=== PATIENT | male | born 2000 | race Caucasian/White ===

== ENCOUNTER 2020-03-21 23:12 | Inpatient (IN) | payer SELFPAY ==
[~2020-03-21] VITALS: Ht 185.2 cm; Wt 111.1 kg
[2020-03-21] MEDS ORDERED: LACTATED RINGERS 1,000 ML IV ONE (23:20)
--- OUTSIDE RECORDS SUMMARY | 2020-03-21 23:23 | XMS REPORT ---
Author Author Jonathan WALKER eClinicalWorks Address Unknown Phone Unavailable Care Team Providers Care Premium Card Cancellation Clerk Name Role Phone KAN WALKER CP Unavailable Allergies, Adverse Reactions, Alerts Substance Reaction Event Type N.K.D.A. Info Not Available Non Drug Allergy Problems Problem Type Condition Code Onset Dates Condition Statu s Assessment Dental examination Z01.20 Active Medications Medication Code System Code Instructions Start Date End Date Status Dosage Singulair [facility] [address]-64 not defi regla Advair Diskus [facility] [address]-58 not defined ProAir HFA [facility] [id number] not def ined Procedures Procedure Coding System Code Date AMALGAM-TWO SURFACES PRIMARY/PERM CPT-4 D2150 Jul 27, 2015 AMALGAM-TWO SURFACES PRIMARY/PERM CPT-4 D2150 Jul 27, 2015 Results No Known Results Summary Purpose eClinicalWorks Submission
--- OUTSIDE RECORDS SUMMARY | 2020-03-21 23:23 | XMS REPORT ---
Author Author Jonathan STEELE Organization [facility] [place] Address [address] [place] [address] Care Team Providers Care Hydraulic Repairer Name Role Phone DAVIS STEELE Unavailable PROBLEMS Unknown Problems ALLERGIES No Known Allergies ENCOUNTERS Encounter Location Date Diagnosis [facility] [address] [id number] [address] [place] [phone] Aug, Sore throat J02.9 ; Acute no n-recurrent maxillary sinusitis J01.00 and Rash of hands R21 [facility] [id number] [place] [id number] Feb, Dental examination Z01.20 [facility] [place] [address] [facility] [id number] [address] [place] [phone] Dec, Dental examination Z01.20 [facility] [id number] [place] [id number] Jun, Encounter for dental examina tion Z01.20 [facility] [address] [id number] [address] [place] [id number] Feb, Dental examination Z01.20 [facility] [address] [id number] [place] [id number] Nov, Encounter for dental examina tion and cleaning without abnormal findings Z01.20 [facility] [address] [id number] [address] [place] [id number] Aug, Dental examination Z01.20 [facility] [address] [id number] [address] [place] [address] [id number] Jul, Dental examination Z01.20 [facility] [id number] [place] [id number] May, Dental examination V72.2 [facility] [address] [id number] [address] [place] [address] [id number] May, Dental examination V72.2 [facility] [address] [id number] [address] [place] [address] [id number] Apr, Dental examination V72.2 [facility] [address] [id number] [address] [place] [id number] Mar, Dental examination V72.2 [facility] [address] [id number] [address] [place] [address] [id number] January, Dental examination V72.2 [facility] [place] [address] [facility] [id number] [address] [place] [phone] Feb, [facility] [place] [address] [facility] [id number] [address] [place] [phone] Feb, IMMUNIZATIONS No Known Immunizations SOCIAL HISTORY Never Assessed REASON FOR VISIT sore throat, and productive cough that is greenish-brown tinged. been sick for 2 days. also reports redness on his hands. pt did state when questioned...that he washes his hands a lot at work. alomst liiks like dry skin. [email or web address] PLAN OF CARE Activity Details Follow Up if not improving with PCP or reg follow up Reason: VITAL SIGNS Height 72 in 2017-09-08 Weight 222.0 lbs 2017-09-08 Temperature 98.1 degrees Fahrenheit 2017-09-08 Heart Rate 80 bpm 2017-09-08 Respiratory Rate 20 2017-09-08 BMI 30.11 kg/m2 2017-09-08 Blood pressure systolic 124 mmHg 2017-09-08 Blood pressure diastolic 76 mmHg 2017-09-08 MEDICATIONS Medication Instructions Dosage Frequency Start Date End Date Duration S tatus Singulair Active PredniSONE 20 mg Orally Once a day 2 tablets 24h Aug, Aug, 05 days Active Advair Diskus Active Azithromycin 250 MG Orally Once a day 2 tablets on the fi rst day, then 1 tablet daily for 4 days 24h 5 day(s) Active ProAir HFA Active RESULTS Name Result Date Reference Range STREP A (IN HOUSE) 2017-09-08 STREP A negative Control + Lot # [id number] Exp date 08 23 2018 PROCEDURES Procedure Date Ordered Result Body Site STREP A ASSAY W/OPTIC Sep 08, 2017 INSTRUCTIONS MEDICATIONS ADMINISTERED No Known Medications MEDICAL (GENERAL) HISTORY Type Description Date Medical History Asthma Surgical History tonsils Hospitalization History see above surgery
--- OUTSIDE RECORDS SUMMARY | 2020-03-21 23:23 | XMS REPORT ---
Author Author Jonathan HOFFMAN Organization e[employer]Works Address Unknown Phone Unavailable Care Team Providers Care Snout Puller Name Role Phone PIPE HOFFMAN CP Unavailable Allergies No Known Allergies Problems Problem Type Condition ICD-9 Code Onset Dates Condition Statu s Assessment Dental examination V72.2 Active Medications No Known Medications Procedures Procedure Coding System Code Date AMALGAM-TWO SURFACES PRIMARY/PERM CPT-4 D2150 Jun 02, 2015 Billing Notes on claim CPT-4 EC109 Jun 02, 2015 LTD ORAL EVALUATION - PROBLEM FOCUS CPT-4 D0140 Jun 02, 2015 Results No Known Results Summary Purpose eClinicalWorks Submission
--- OUTSIDE RECORDS SUMMARY | 2020-03-21 23:23 | XMS REPORT ---
Author Author Jonathan GALO Organization e[employer] Address Unknown Phone Unavailable Care Team Providers Care Operator Cavity Pump Name Role Phone SHILA GALO CP Unavailable Allergies, Adverse Reactions, Alerts Substance Reaction Event Type N.K.D.A. Info Not Available Non Drug Allergy Problems Problem Type Condition Code Onset Dates Condition Statu s Problem Encounter for dental examination and tim aning without abnormal findings Z01.20 Active Assessment Encounter for dental examination Z01.20 Active Problem Encounter for dental examination Z01.20 Active Medications Medication Code System Code Instructions Start Date End Date Status Dosage Advair Diskus [facility] [id number] not defined Singulair [facility] [id number] not defi regla ProAir HFA [facility] [address]-56 not def ined Procedures Procedure Coding System Code Date TOPICAL FLUORIDE VARNISH CPT-4 D1206 Jul 19, 2016 PROPHYLAXIS - ADULT CPT-4 D1110 Jul 19, 2016 Vital Signs Date/Time: Jul 19, 2016 Blood Pressure Diastolic 65 mmHg Blood Pressure Systolic 111 mmHg Cardiac Monitoring Heart Rate 76 bpm Results No Known Results Summary Purpose eClinicalWorks Submission
--- OUTSIDE RECORDS SUMMARY | 2020-03-21 23:23 | XMS REPORT ---
Author Author Jonathan WALKER eClinicalWorks Address Unknown Phone Unavailable Care Team Providers Care Robotic Welding Operator Name Role Phone KAN WALKER CP Unavailable Allergies, Adverse Reactions, Alerts Substance Reaction Event Type N.K.D.A. Info Not Available Non Drug Allergy Problems Problem Type Condition Code Onset Dates Condition Statu s Assessment Dental examination Z01.20 Active Medications Medication Code System Code Instructions Start Date End Date Status Dosage Advair Diskus [facility] [address]-86 not defined ProAir HFA [facility] [address]-58 not def ined Singulair [facility] [address]-02 not defi regla Procedures Procedure Coding System Code Date CORE BUILDUP INCLUDING ANY PINS CPT-4 D2950 Jul 27, 2015 Vital Signs Date/Time: Jul 27, 2015 Blood Pressure Diastolic 69 mmHg Blood Pressure Systolic 113 mmHg Results No Known Results Summary Purpose eClinicalWorks Submission
--- OUTSIDE RECORDS SUMMARY | 2020-03-21 23:23 | XMS REPORT ---
Author Author Jonathan PERRY Organization [facility] Address [address] [place] [address] Care Team Providers Care Tractor Engine Mechanic Name Role Phone DAYO PERRY Unavailable PROBLEMS Unknown Problems ALLERGIES No Information ENCOUNTERS Encounter Location Date Diagnosis [facility] [address] [facility] [id number] [address] [place] [address] Aug, Sore throat J02.9 ; Acute no n-recurrent maxillary sinusitis J01.00 and Rash of hands R21 [facility] [address] [id number] Feb, Dental examination Z01.20 [facility] [address] [id number] [place] [address] Dec, Dental examination Z01.20 [facility] [address] [id number] Jun, Encounter for dental examination Z01.20 [facility] [address] [id number] Feb, Dental examination Z01.20 [facility] [address] [id number] Nov, Encounter for dental examination and tim aning without abnormal findings Z01.20 [facility] [address] [id number] Aug, Dental examination Z01.20 [facility] [address] [id number] Jul, Dental examination Z01.20 [facility] [address] [id number] May, Dental examination V72.2 [facility] [address] [id number] May, Dental examination V72.2 [facility] [address] [id number] [place] [phone] Apr, Dental examination V72.2 [facility] [address] [id number] [place] [id number] Mar, Dental examination V72.2 [facility] [address] [facility] [place] [id number] January, Dental examination V72.2 [facility] [address] [facility] [place] [address] Feb, [facility] [address] [facility] [place] [address] Feb, IMMUNIZATIONS No Known Immunizations SOCIAL HISTORY Never Assessed REASON FOR VISIT PLAN OF CARE VITAL SIGNS MEDICATIONS No Known Medications RESULTS No Results PROCEDURES No Known procedures INSTRUCTIONS MEDICATIONS ADMINISTERED No Known Medications MEDICAL (GENERAL) HISTORY Type Description Date Medical History Asthma Surgical History tonsils Hospitalization History see above surgery
--- OUTSIDE RECORDS SUMMARY | 2020-03-21 23:23 | XMS REPORT ---
Author Author Jonathan HOFFMAN Organization e[employer]Works Address Unknown Phone Unavailable Care Team Providers Care Dip Unit Operator Name Role Phone PIPE HOFFMAN CP Unavailable Allergies No Known Allergies Problems Problem Type Condition ICD-9 Code Onset Dates Condition Statu s Assessment Dental examination V72.2 Active Medications No Known Medications Procedures Procedure Coding System Code Date AMALGAM-TWO SURFACES PRIMARY/PERM CPT-4 D2150 May 26, 2015 AMALGAM-TWO SURFACES PRIMARY/PERM CPT-4 D2150 May 26, 2015 AMALGAM-TWO SURFACES PRIMARY/PERM CPT-4 D2150 May 26, 2015 Results No Known Results Summary Purpose eClinicalWorks Submission
--- OUTSIDE RECORDS SUMMARY | 2020-03-21 23:23 | XMS REPORT ---
Author Author Jonathan HOFFMAN Organization [employer] Address Unknown Phone Unavailable Care Team Providers Care Clerical Investigator Name Role Phone PIPE HOFFMAN CP Unavailable Allergies No Known Allergies Problems Problem Type Condition ICD-9 Code Onset Dates Condition Statu s Assessment Dental examination V72.2 Active Medications No Known Medications Procedures Procedure Coding System Code Date AMALGAM-TWO SURFACES PRIMARY/PERM CPT-4 D2150 May 18, 2015 AMALGAM-TWO SURFACES PRIMARY/PERM CPT-4 D2150 May 18, 2015 AMALGAM-TWO SURFACES PRIMARY/PERM CPT-4 D2150 May 18, 2015 Results No Known Results Summary Purpose eClinicalWorks Submission
--- OUTSIDE RECORDS SUMMARY | 2020-03-21 23:23 | XMS REPORT ---
Author Author Jonathan HOFFMAN Organization e[employer]Works Address Unknown Phone Unavailable Care Team Providers Care Property Management Bookkeeper Name Role Phone PIPE HOFFMAN CP Unavailable Allergies No Known Allergies Problems Problem Type Condition ICD-9 Code Onset Dates Condition Statu s Assessment Dental examination V72.2 Active Medications No Known Medications Procedures Procedure Coding System Code Date AMALGAM-FOUR/MORE SURF PRIM/PERM CPT-4 D2161 April 05, 2015 AMALGAM-3 SURFACES PRIMARY/PERM CPT-4 D2160 April 05, 2015 Results No Known Results Summary Purpose eClinicalWorks Submission
--- OUTSIDE RECORDS SUMMARY | 2020-03-21 23:23 | XMS REPORT | Continuity of Care Document ---
Author Organization Unknown Address Unknown Phone Unavailable Allergies There is no data. Medications There is no data. Problems There is no data. Procedures There is no data. Results There is no data. Encounters ACCT No. Visit Date/Time Discharge Status Pt. Type Provider Facility Loc./Unit Complaint [id number] 03/19/2020 18:20:00 ACT Outpatient KAILYN TELLO [facility] [id number] 03/21/2020 23:19:[address] Emergency SIRIA PONCE DO Via [facility]
[2020-03-21] MEDS ORDERED: TETANUS,DIPTH,PERTUSS P/F (BOOSTRIX) 0.5 ML VIAL IM ONE (23:30)
[2020-03-22] VITALS (30 sets, daily range): BP systolic 99–138; BP diastolic 63–105
[2020-03-22 00:30] LABS: BASOPHILS % (AUTO) 2 % (0-10); EOSINOPHILS % (AUTO) 1 % (0-10); LYMPHOCYTES # (AUTO) 0.8 X 10^3 (1.0-4.0); LYMPHOCYTES % (AUTO) 77 % (12-44); MEAN CORPUSCULAR HEMOGLOBIN 34 PG (25-34); MEAN CORPUSCULAR HGB CONC 36 G/DL (32-36); MEAN CORPUSCULAR VOLUME 96 FL (80-99); MONOCYTES # (AUTO) 0.1 X 10^3 (0.0-1.0); MONOCYTES % (AUTO) 13 % (0-12); NEUTROPHILS # (AUTO) 0.1 X 10^3 (1.8-7.8); NEUTROPHILS % (AUTO) 8 % (42-75); RED CELL DISTRIBUTION WIDTH 15.1 % (10.0-14.5)
[2020-03-22] MEDS ORDERED: LIDOCAINE/EPI 2% 1:100,00 (XYLOCAINE) 20 ML VIAL INJ ONE (00:30)
[2020-03-22 00:33] LABS: ALBUMIN 4.1 GM/DL (3.2-4.5); CHLORIDE 100 MMOL/L (98-107); POTASSIUM 3.2 MMOL/L (3.6-5.0); SODIUM 138 MMOL/L (135-145)
[2020-03-22 00:34] LABS: CALCIUM 8.7 MG/DL (8.5-10.1)
[2020-03-22 00:35] LABS: AMYLASE 44 U/L (25-125)
[2020-03-22 00:36] LABS: GLUCOSE 140 MG/DL (70-105); TOTAL PROTEIN 7.2 GM/DL (6.4-8.2)
[2020-03-22 00:37] LABS: BILIRUBIN,TOTAL 0.7 MG/DL (0.1-1.0); CARBON DIOXIDE 22 MMOL/L (21-32)
[2020-03-22 00:39] LABS: ALKALINE PHOSPHATASE 36 U/L (40-136); CREATININE SERUM 1.04 MG/DL (0.60-1.30); GFR ESTIMATED > 60
[2020-03-22 00:40] LABS: BUN/CREATININE RATIO 13
[2020-03-22 00:42] LABS: ALANINE AMINOTRANSFERASE 35 U/L (0-55); MAGNESIUM 2.4 MG/DL (1.6-2.4)
[2020-03-22 00:43] LABS: CREATINE KINASE 354 U/L (30-200); LIPASE 26 U/L (8-78)
[2020-03-22 00:51] LABS: CREATINE KINASE MB 0.5 NG/ML (<6.6)
[2020-03-22 01:04] LABS: TSH (THYROID ANALYZER) 0.85 UIU/ML (0.35-4.94)
--- NOTE | 2020-03-22 01:20 | NUR ---
C COLLAR REMOVED BY DR. PONCE AT THIS TIME.
[2020-03-22 01:24] LABS: HEMATOCRIT 10 % (40-54); HEMOGLOBIN 3.5 G/DL (13.3-17.7); PLATELET COUNT 12 10^3/uL (130-400)
[2020-03-22 01:25] LABS: FIBRIN DEGRADATION PRODUCTS > 20.00 UG/ML (0.00-0.49); INR 1.2 (0.8-1.4); PARTIAL THROMBOPLASTIN TIME 28 SEC (24-35)
--- NOTE | 2020-03-22 01:30 | NUR ---
9 BRAD A CROWN OF HEAD TO 4CM LAC BY DR. PONCE.
[2020-03-22] MEDS ORDERED: PIPERACILLIN/TAZOBACTAM (BULK) 4.5 GM in NS (IVPB) 100 ML IV ONE (02:00)
[2020-03-22] MEDS ORDERED: ACETAMINOPHEN 500 MG TAB (TYLENOL) PO ONE (02:00)
--- NOTE | 2020-03-22 02:05 | NUR ---
1L NS STARTED BY EMS COMPLETED AT THIS TIME.
[2020-03-22] MEDS ORDERED: PIPERACILLIN/TAZO 4.5 GM VIAL (ZOSYN) IV ONE (02:19)
[2020-03-22] MEDS ORDERED: NS (IVPB) 100 ML ONE (02:20)
[2020-03-22] MEDS ORDERED: NS IV 1000 ML 1,000 ML IV SCH (02:23)
--- NOTE | 2020-03-22 02:23 | ED General ---
General Chief Complaint: Trauma-Non Activation Stated Complaint: FALL Source of Information: Patient, EMS History of Present Illness Date Seen by Provider: Mar 21, 2020 Time Seen by Provider: 23:13 Initial Comments PT ARRIVES VIA EMS FROM HOME--NO IMMOBILIZATION C-COLLAR IMMEDIATELY PLACED ON PT'S ARRIVAL TO ER PT STATES HE HAD GONE DOWNSTAIRS, AND WAS STARTING TO GO BACK UP, WHEN OTHER PEOPLE WERE COMING DOWN THE STAIRS, HE DROPPED A BOTTLE OF WATER AND HE BENT OVER TO PICK IT UP AND A DOOR HIT HIM IN THE HEAD ( DOES NOT KNOW WHERE IT HIT HIM) THEN STATES HE FLEW BACKWARDS AND HIT HIS HEAD ON A WALL AND WENT UNCONSCIOUS, FOR UNKNOWN LENGTH OF TIME. THIS WAS REPORTEDLY WITNESSED BY OTHERS. PT RECALLS EVENTS LEADING UP TO, BUT CANNOT RECALL THE ACTUAL EVENT OR FOR SOME TIME AFTER THAT. DOES RECALL THE AMBULANCE RIDE HERE. HAS LACERATION TO BACK OF HEAD NO DIZZINESS AT THIS TIME NO VISION CHANGES NO PARESTHESIAS OR MOTOR DEFICITS NO NECK OR BACK PAIN NO EXTREMITY PAIN OR INJURY PT STATES HE HAS BEEN DIZZY AND TIRED LATELY, ESPECIALLY WITH "PHYSICAL EXERTION" --GETTING UP TO WALK ACROSS THE ROOM, CAUSES HIM TO FEEL VERY TIRED AND DIZZY AND VERY SHORT OF BREATH PT HAS HAD MILD COUGH, AND NASAL DRAINAGE. NO CHEST PAIN PT HAD GI ILLNESS 2 WEEKS AGO, WITH NAUSEA/VOMITING AND DIARRHEA FOR 2-3 DAYS. THOSE SYMPTOMS RESOLVED DID NOT HAVE FEVER WITH THAT NO HEMATEMESIS OR BLACK/BLOODY/TARRY STOOLS NO ABDOMINAL PAIN NO CHANGE IN COLOR OF URINE OR PROBLEMS URINATING STATES HE WAS TESTED FOR COVID-19 ON 03/07/20 AND WAS NEGATIVE. DONE AT [facility]. PT HAS BEEN ON AMOXIL FOR "GUM INFECTION" FOR THE LAST WEEK OR TWO STATES THAT IS NOT IMPROVING. NO KNOWN SICK CONTACTS OR KNOWN EXPOSURE TO COVID-19 PT AND HIS ROOM MATE BOTH WORK AT [employer], HOWEVER. HIS ROOM MATE HAS NOT BEEN ILL PT IS NOTED TO HAVE TEMP OF OVER 101 ON ARRIVAL--PT WAS UNAWARE THAT HE HAD FEVER. PCP: [facility] Allergies and Home Medications Allergies Coded Allergies: No Allergy Information Available (Unverified , 03/21/20) Patient Home Medication List Home Medication List Reviewed: Yes Review of Systems Review of Systems Constitutional: see HPI; No diaphoresis; dizziness, fever, malaise, weakness EENTM: see HPI, mouth pain, nose congestion, other (GUM INFECTION) Respiratory: see HPI, cough, dyspnea on exertion, short of breath Cardiovascular: No chest pain, No palpitations; other (NEAR-SYNCOPE ? ) Gastrointestinal: see HPI (RECENT GI ILLNESS, BUT NO SYMPTOMS NOW. ) Genitourinary: no symptoms reported Musculoskeletal: no symptoms reported; No back pain, No neck pain Skin: no symptoms reported Psychiatric/Neurological: No Symptoms Reported; Denies Headache, Denies Numbness, Denies Paresthesia, Denies Seizure, Denies Tingling, Denies Weakness Hematologic/Lymphatic: No Symptoms Reported; Denies Anemia, Denies Easy Bleeding, Denies Easy Bruising, Denies Swollen Glands Immunological/Allergic: no symptoms reported Past [place]-Jhcxiz-Lnwvwq Hx Past Med/Social Hx: Reviewed and Corrections made Patient Social History Alcohol Use: Occasionally Uses Recreational Drug Use: No Smoking Status: Current Everyday Smoker Type Used: Cigarettes Immunizations Up To Date Tetanus Booster (TDap): Unknown Seasonal Allergies Seasonal Allergies: Yes Past Medical History Surgeries: Yes Tonsillectomy Respiratory: Yes Asthma Cardiac: No Neurological: No Reproductive Disorders: No Genitourinary: No Gastrointestinal: No Musculoskeletal: No Endocrine: No HEENT: Yes (S/P TONSILLECTOMY) Tonsilitis Cancer: No Psychosocial: No Integumentary: No Blood Disorders: No Family Medical History No Pertinent Family Hx Physical Exam Vital Signs Vital Signs - First Documented 03/22/20 03/22/20 02:28 02:31 Temp 39.2 Pulse 121 B/P (MAP) 138/105 Pulse Ox 99 O2 Delivery Room Air Capillary Refill : Height, Weight, BMI Height: '" Weight: lbs. oz. kg; BMI Method: General Appearance: No Apparent Distress, WD/WN Eyes: Bilateral Eye PERRL, Bilateral Eye EOMI, Bilateral Eye Conjunctivae Pale HEENT: PERRL/EOMI, TMs Normal, Moist Mucous Membranes, Pale Conjunctivae (L), Pale Conjunctivae (R); No Pharyngeal Erythema, No Photophobia, No Scleral Icterus (L), No Scleral Icterus (R); Other (PATCHY AREAS OF GINGIVAL INFLAMMATION AND WHITE EXUDATE TO GUMS AND ROOF OF MOUTH. NO DISCRETE ULCERS. NO BLEEDING FROM GUMS, BUT GUMS ARE PALE) Neck: Non Tender Respiratory: Chest Non Tender, Normal Breath Sounds, No Accessory Muscle Use, No Respiratory Distress Cardiovascular: No Edema, No JVD, No Murmur, Normal Peripheral Pulses, Tachycardia Gastrointestinal: Normal Bowel Sounds, No Organomegaly, No Pulsatile Mass, Non Tender, Soft Back: Normal Inspection, No CVA Tenderness, No Vertebral Tenderness Extremity: Normal Inspection, Normal Range of Motion, Non Tender, No Calf Tenderness, No Pedal Edema, Slow Capillary Refill Neurologic/Psychiatric: Alert, Oriented x3, No Motor/Sensory Deficits, Normal Mood/Affect, 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 ) Possible Source: Unknown Lactate Level 03/21/20 23:27: Lactic Acid Level 1.86 Time of Focused Exam: 01:20 Respiratory: Normal Breath Sounds, No Accessory Muscle Use, No Respiratory Distress Cardiovascular: No Edema, No JVD, No Murmur, Normal Peripheral Pulses, Tachycardia Capillary Refill: Greater Than 3 Seconds Peripheral Pulses: 2+ Dorsalis Pedis (R), 2+ Left Dors-Pedis (L), 2+ Radial Pulses (R), 2+ Radial Pulses (L) Skin: warm/dry, pallor Lactic Acid Level Within 3hrs of presentation: Admin fluids, Admin ABX, Blood cultures prior to ABX's, Focus exam, Lactate level Procedures/Interventions Wound Location: Scalp (CROWN) Wound Length (cm): 4 Wound's Depth, Shape: linear, sub Q Wound Explored: clean Anesthesia: Lidocaine w/ Epi (2%) Staple Repair: Stapler 35W (#9 BRAD PLACED) Progress/Results/Core Measures Suspected Sepsis SIRS Temperature: Pulse: Respiratory Rate: Laboratory Tests 03/21/20 23:27: White Blood Count 1.0*L Blood Pressure / Mean: 03/21/20 23:27: Lactic Acid Level 1.86 Laboratory Tests 03/21/20 23:27: Creatinine 1.04, INR Comment 1.2, Platelet Count 12*L, Total Bilirubin 0.7 Results/Orders Lab Results Laboratory Tests Test 03/21/20 23:27 03/21/20 23:50 03/22/20 02:37 Range/Units White Blood Count 1.0 *L 4.3-11.0 10^3/uL Red Blood Count 1.02 L 4.35-5.85 10^6/uL Hemoglobin 3.5 *L 13.3-17.7 G/DL Hematocrit 10 *L 40-54 % Mean Corpuscular Volume 96 80-99 FL Mean Corpuscular Hemoglobin 34 25-34 PG Mean Corpuscular Hemoglobin Concent 36 32-36 G/DL Red Cell Distribution Width 15.1 H 10.0-14.5 % Platelet Count 12 *L 130-400 10^3/uL Mean Platelet Volume 7.4-10.4 FL Neutrophils (%) (Auto) 8 L 42-75 % Lymphocytes (%) (Auto) 77 H 12-44 % Monocytes (%) (Auto) 13 H 0-12 % Eosinophils (%) (Auto) 1 0-10 % Basophils (%) (Auto) 2 0-10 % Neutrophils # (Auto) 0.1 L 1.8-7.8 X 10^3 Lymphocytes # (Auto) 0.8 L 1.0-4.0 X 10^3 Monocytes # (Auto) 0.1 0.0-1.0 X 10^3 Eosinophils # (Auto) 0.0 0.0-0.3 10^3/uL Basophils # (Auto) 0.0 0.0-0.1 10^3/uL Neutrophils % (Manual) 11 % Lymphocytes % (Manual) 67 % Monocytes % (Manual) 7 % Metamyelocytes % 3 % Band Neutrophils 1 % Nucleated Red Blood Cells 4 Atypical Lymphocytes 11 % Anisocytosis SLIGHT Microcytosis MODERATE Erythrocyte Sedimentation Rate > 140 H 0-15 MM/HR Prothrombin Time 16.0 H 12.2-14.7 SEC INR Comment 1.2 0.8-1.4 Activated Partial Thromboplast Time 28 24-35 SEC D-Dimer > 20.00 *H 0.00-0.49 UG/ML Sodium Level 138 135-145 MMOL/L Potassium Level 3.2 L 3.6-5.0 MMOL/L Chloride Level 100 98-107 MMOL/L Carbon Dioxide Level 22 21-32 MMOL/L Anion Gap 16 H 5-14 MMOL/L Blood Urea Nitrogen 14 7-18 MG/DL Creatinine 1.04 0.60-1.30 MG/DL Estimat Glomerular Filtration Rate > 60 BUN/Creatinine Ratio 13 Glucose Level 140 H 70-105 MG/DL Glucometer 159 H 70-110 MG/DL Lactic Acid Level 1.86 0.50-2.00 MMOL/L Calcium Level 8.7 8.5-10.1 MG/DL Corrected Calcium 8.6 8.5-10.1 MG/DL Magnesium Level 2.4 1.6-2.4 MG/DL Total Bilirubin 0.7 0.1-1.0 MG/DL Aspartate Amino Transf (AST/SGOT) 30 5-34 U/L Alanine Aminotransferase (ALT/SGPT) 35 0-55 U/L Alkaline Phosphatase 36 L 40-136 U/L Lactate Dehydrogenase 290 H 125-220 U/L Total Creatine Kinase 354 H 30-200 U/L Creatine Kinase MB 0.5 <6.6 NG/ML Myoglobin 117.1 H 10.0-92.0 NG/ML Troponin I < 0.028 <0.028 NG/ML C-Reactive Protein High Sensitivity 18.10 H 0.00-0.50 MG/DL B-Type Natriuretic Peptide 85.4 <100.0 PG/ML Total Protein 7.2 6.4-8.2 GM/DL Albumin 4.1 3.2-4.5 GM/DL Amylase Level 44 25-125 U/L Lipase 26 8-78 U/L Procalcitonin 0.22 H <0.10 NG/ML TSH [place] Testing 0.85 0.35-4.94 UIU/ML Serum Alcohol < 10 <10 MG/DL Urine Color DARK YELLOW Urine Clarity SL CLOUDY Urine pH 6.0 5-9 Urine Specific [place] 1.020 1.016-1.022 Urine Protein 2+ H NEGATIVE Urine Glucose (UA) NEGATIVE NEGATIVE Urine Ketones TRACE H NEGATIVE Urine Nitrite NEGATIVE NEGATIVE Urine Bilirubin NEGATIVE NEGATIVE Urine Urobilinogen 1.0 < = 1.0 MG/DL Urine Leukocyte Esterase NEGATIVE NEGATIVE Urine RBC (Auto) 2+ H NEGATIVE Urine RBC RARE /HPF Urine WBC NONE /HPF Urine Squamous Epithelial Cells 2-5 /HPF Urine Crystals NONE /LPF Urine Bacteria NEGATIVE /HPF Urine Casts PRESENT /LPF Urine Hyaline Casts 2-5 H /LPF Urine Mucus SMALL H /LPF Urine Culture Indicated NO Urine Opiates Screen NEGATIVE NEGATIVE Urine Oxycodone Screen NEGATIVE NEGATIVE Urine Methadone Screen NEGATIVE NEGATIVE Urine Propoxyphene Screen NEGATIVE NEGATIVE Urine Barbiturates Screen NEGATIVE NEGATIVE Ur Tricyclic Antidepressants Screen NEGATIVE NEGATIVE Urine Phencyclidine Screen NEGATIVE NEGATIVE Urine Amphetamines Screen NEGATIVE NEGATIVE Urine Methamphetamines Screen NEGATIVE NEGATIVE Urine Benzodiazepines Screen NEGATIVE NEGATIVE Urine Cocaine Screen NEGATIVE NEGATIVE Urine Cannabinoids Screen NEGATIVE NEGATIVE My Orders Orders - SIRIA PONCE DO Accucheck Stat ONCE (03/21/20 23:20) Ed Iv/Invasive Line Start (03/21/20 23:20) Ekg Tracing (03/21/20 23:20) Monitor-Rhythm Ecg Trace Only (03/21/20 23:20) Alcohol (03/21/20 23:20) BNP (03/21/20 23:20) Cbc With Automated Diff (03/21/20 23:20) Comprehensive Metabolic Panel (03/21/20 23:20) Creatine Kinase (03/21/20 23:20) Creatine Kinase Mb (03/21/20 23:20) Drug Screen Stat (Urine) (03/21/20 23:20) Magnesium (03/21/20 23:20) Protime With Inr (03/21/20 23:20) Partial Thromboplastin Time (03/21/20 23:20) Thyroid Analyzer (03/21/20 23:20) Ua Culture If Indicated (03/21/20 23:20) Myoglobin Serum (03/21/20 23:20) Troponin I (03/21/20 23:20) Ed Iv/Invasive Line Start (03/21/20 23:20) Ed Iv/Invasive Line Start (03/21/20 23:20) Lactated Ringers (Lr 1000 Ml Iv Solution (03/21/20 23:20) Dipht,Pertuss(Acell),Tet Adult (Boostrix (03/21/20 23:30) Amylase (03/21/20 23:23) Hs C Reactive Protein (03/21/20 23:23) Fibrin Degradation Products (03/21/20 23:23) Lactic Acid Analyzer (03/21/20 23:23) Lipase (03/21/20 23:23) Blood Culture (03/21/20 23:23) Procalcitonin (Pct) (03/21/20 23:23) Erythrocyte Sedimentation Rate (03/21/20 23:23) LDH (03/21/20 23:23) Coronavirus Sars-Cov-2 So 2019 (03/21/20 23:23) Ed Iv/Invasive Line Start (03/21/20 23:23) Ct Head/Face/Cervical Wo (03/22/20 00:01) Chest 1 View, Ap/Pa Only (03/22/20 00:01) Lidocaine/Epi 2% 1:100,000 (Xylocaine/Ep (03/22/20 00:30) Manual Differential (03/21/20 23:27) Initiate Massive Transfusion P (03/22/20 01:27) Type And Screen (03/22/20 01:27) Red Cells Leukocytes Reduced (03/22/20 01:27) Fresh Frozen Plasma (03/22/20 01:08) Platelet Pheresis Lr (03/22/20 01:08) Piperacillin/Tazobactam (Bulk) (Zosyn In (03/22/20 02:00) Vancomycin Injection (Vancomycin Injecti (03/22/20 02:00) Acetaminophen Tablet (Tylenol Tablet) (03/22/20 02:00) Piperacillin Sodium/Tazobactam (Zosyn Vi (03/22/20 02:19) Ns (Ivpb) (Sodium Chloride 0.9% Ivpb Bag (03/22/20 02:20) Ed Iv/Invasive Line Start (03/22/20 02:23) Ns Iv 1000 Ml (Sodium Chloride 0.9%) (03/22/20 02:23) Medications Given in ED Current Medications Medications Dose Ordered Sig/Yoseph Route Start Time Stop Time Status Last Admin Dose Admin Acetaminophen 1,000 mg ONCE ONCE PO 03/22/20 02:00 03/22/20 02:01 DC 03/22/20 02:28 1,000 MG Diphtheria/ Tetanus/Acell Pertussis 0.5 ml ONCE ONCE IM 03/21/20 23:30 03/21/20 23:31 DC 03/21/20 23:46 0.5 ML Lactated Ringer's 1,000 ml @ 0 mls/hr Q0M ONCE IV 03/21/20 23:20 03/21/20 23:23 DC 03/21/20 23:43 999 MLS/HR Lidocaine/ Epinephrine 20 ml ONCE ONCE INJ 03/22/20 00:30 03/22/20 00:31 DC 03/22/20 03:10 20 ML Piperacillin Sod/ Tazobactam Sod 4.5 gm/Sodium Chloride 120 ml @ 240 mls/hr ONCE ONCE IV 03/22/20 02:00 03/22/20 02:29 DC 03/22/20 02:48 240 MLS/HR Vital Signs/I&O 03/22/20 03/22/20 03/22/20 03/22/20 02:28 02:31 02:49 03:23 Temp 39.2 39.2 39.2 38.8 Pulse 121 117 114 B/P (MAP) 138/105 127/64 130/70 Pulse Ox 99 98 99 O2 Delivery Room Air Room Air Room Air 03/22/20 03:43 Temp 38.8 Pulse 112 B/P (MAP) 124/73 Pulse Ox 99 03/22/20 00:00 Intake Total 100 ml Balance 100 ml Capillary Refill : Progress Note : Progress Note PT IMMEDIATELY PLACED ON CERVICAL COLLAR ON ARRIVAL UPON OBTAINING VITALS, AND HISTORY, ALL STAFF IMMEDIATELY DONNED PPE AND IT WAS WORN ALL ALL TIMES FOR REMAINDER OF ER STAY COVID TESTING PERFORMED. CERVICAL COLLAR REMOVED AT 0120, AFTER RECEIVING CT REPORT OF HEAD AND CERVICAL SPINE. PT GIVEN IV FLUIDS, AND TYLENOL FOR FEVER ON RECEIVING LAB RESULTS ( REPEAT LAB DRAWN FROM DIFFERENT SITE, FOR CONFIRMATION OF CBC RESULTS) MASS TRANSFUSION PROTOCOL INITIATED, GIVING BLOOD, PLATELETS AND FFP ADDITIONALLY, PT WAS GIVEN ZOSYN AND VANCOMYCIN FOR FEVER WITH NEUTROPENIA PT REMAINED TACHYCARDIC IN 120'S-130'S, BUT BLOOD PRESSURE REMAINED NORMAL O2 SATS REMAINED NORMAL, AND NO COMPLAINTS OF SHORTNESS OF BREATH AND NO COUGH NOTED DURING ER STAY GIVEN TYLENOL FOR FEVER. PT DENIES ANY PRIOR MEDICAL PROBLEMS OTHER THAN OCCASIONAL ASTHMA HAS NEVER BEEN ANEMIC OR HAD ANY BLOOD DISORDERS NO FAMILY HISTORY OF ANEMIA OR BLOOD DISORDERS OR CANCER IN FIRST OR SECOND DEGREE RELATIVES ( GREAT GRANDMOTHER POSSIBLY HAD BREAST CANCER ) ECG Initial ECG Impression Date: Mar 21, 2020 Initial ECG Impression Time: 23:43 Initial ECG Rate: 120 Initial ECG Rhythm: S.Tach Initial ECG Comparisson: No Previous ECG Available Diagnostic Imaging Comments CXR--NO ACUTE PROCESS, PENDING RADIOLOGIST REVIEW CT HEAD/MAXILLOFACIALS/CERVICAL SPINE--SCALP SWELLING ABOUT THE VERTEX, OTHERWISE NO ACUTE PROCESS, PER [facility] VIA FAX AT 0112 Reviewed: Reviewed by Pa Departure Communication (Admissions) 0201--SPOKE WITH DR. JANG, HOSPITALIST PROGRAM DIRECTOR FOR [facility]. ACCEPTS PT FOR ADMIT. WILL CONSULT SURGEON ( DUE TO TRAUMA) AND HEMATOLOGY/ONCOLOGY IN AM. Impression Primary Impression: COVID P.U.I. Additional Impressions: Closed head injury with brief loss of consciousness Scalp laceration SEVERE PANCYTOPENIA Neutropenia with fever Sepsis Disposition: ADMITTED INPATIENT Condition: Stable Admissions Decision to Admit Reason: Admit from ER (General) Decision to Admit/Date: Mar 22, 2020 Time/Decision to Admit Time: 02:00 Departure-Patient Inst. Referrals: NO,LOCAL PHYSICIAN (PCP/Family) Primary Care Physician SIRIA PONCE DO Mar 22, 2020 02:23
[2020-03-22 02:31] LABS: ERYTHROCYTE SEDIMENTATION RATE > 140 MM/HR (0-15)
[2020-03-22 02:44] LABS: BILIRUBIN,URINE NEGATIVE (NEGATIVE); CLARITY,URINE SL CLOUDY; COLOR,URINE DARK YELLOW; GLUCOSE, URINE (UA) NEGATIVE (NEGATIVE); KETONES,URINE TRACE (NEGATIVE); LEUKOCYTE ESTERASE ,URINE NEGATIVE (NEGATIVE); NITRITE,URINE NEGATIVE (NEGATIVE); PROTEIN,URINE 2+ (NEGATIVE)
[2020-03-22 02:54] LABS: BACTERIA,URINE NEGATIVE /HPF; RBC,URINE RARE /HPF
[2020-03-22] MEDS: VANCOMYCIN INJECTION 1,000 MG in NS (IVPB) 250 ML IV SCH ×2 (03:00→03:10)
[2020-03-22 03:11] LABS: AMPHETAMINE SCREEN, URINE NEGATIVE (NEGATIVE); BARBITURATE SCREEN URINE NEGATIVE (NEGATIVE); BENZODIAZEPINES SCREEN URINE NEGATIVE (NEGATIVE); CANNABINOID SCREEN, URINE NEGATIVE (NEGATIVE); COCAINE SCREEN URINE NEGATIVE (NEGATIVE); METHADONE STAT NEGATIVE (NEGATIVE); METHAMPHETAMINE SCREEN URINE S NEGATIVE (NEGATIVE); OPIATE SCREEN URINE NEGATIVE (NEGATIVE); OXYCODONE STAT NEGATIVE (NEGATIVE); PROPOXYPHENE STAT NEGATIVE (NEGATIVE); TRICYCLIC ANTIDEPRESSANTS SCRE NEGATIVE (NEGATIVE)
[2020-03-22 03:18] LABS: BAND NEUTROPHILS 1 %; LYMPHOCYTES % (MANUAL) 67 %; MONOCYTES % (MANUAL) 7 %; NEUTROPHILS % (MANUAL) 11 %
--- OUTSIDE RECORDS SUMMARY | 2020-03-22 03:18 | XMS REPORT | Continuity of Care Document ---
Author Organization Unknown Address Unknown Phone Unavailable Allergies There is no data. Medications There is no data. Problems There is no data. Procedures There is no data. Results There is no data. Encounters ACCT No. Visit Date/Time Discharge Status Pt. Type Provider Facility Loc./Unit Complaint [id number] 03/19/2020 18:20:00 [facility] [id number] 03/22/2020 02:00:[address] Inpatient SUHAIL KRISHNAN, TISHA Flores [facility] ICU COVID PUI, SEVERE PANCYTOPEN IA,HEAD INJ, SEPSIS
[2020-03-22 03:19] LABS: ANISOCYTOSIS SLIGHT; ATYPICAL LYMPHOCYTES 11 %; METAMYELOCYTES % 3 %; MICROCYTOSIS MODERATE; NUCLEATED RED BLOOD CELLS 4
--- NOTE | 2020-03-22 04:43 | NUR ---
RACHEL TAPIA admitted to room CU3-1, with an admitting diagnosis of COVID PUI, SEVERE PANCYTOPENIA, FEVER WITH NEUTROPENIA, SEPSIS, on 03/22/20 from ED via WHEELCHAIR, accompanied by HOSPITAL STAFF. RACHEL TAPIA introduced to surroundings, call light, bed controls, phone, TV, temperature control, lights, meal times, smoking policy, visitor policy, side rail policy, bathrooms and showers. Patient Rights given to patient in the handbook.RACHEL TAPIA verbalizes understanding that [facility] is not responsible for the loss or damage to any personal effects or valuables that are kept in the patients posession during their hospitalization. RACHEL TAPIA verbalizes understanding of Interdisciplinary Patient Education. Patient and/or family were informed about the Rapid Response Team and its purpose.
[2020-03-22] MEDS: NS IV 1000 ML 1,000 ML IV SCH ×3 (05:15→21:12)
[2020-03-22] MEDS ORDERED: VANCOMYCIN 1000 MG/VIAL ONE (05:35)
[2020-03-22] MEDS ORDERED: NS (IVPB) 250 ML ONE (05:35)
--- NOTE | 2020-03-22 05:45 | NUR ---
CLARIFIED WITH POLINA WHITE THAT SHE HAD ADMINISTERED 1G VANCO. IN 250ML NS. THIS RN THEN ADMINISTERED 1G VANCO IN 250ML NS FOR A TOTAL OF 2G VANCO. 0600-DISCUSSED VANCO ORDER WITH DR. TANNER AND INFORMED HIM THAT PATIENT WAS IN THE PROCESS OF RECEIVING HIS SECOND GRAM OF VANCO. RECEIVED ORDER TO HAVE ENRICO WITH PHARMACY REVIEW VANCO DOSE BEFORE ADDITIONAL VANCO IS ADMINISTERED.
--- NOTE | 2020-03-22 05:45 | NUR ---
CLARIFIED WITH ALAINA,
[2020-03-22] MEDS ORDERED: VANCOMYCIN 1500 MG/NS 500 ML IVPB IV SCH ×2 (06:00)
[2020-03-22] MEDS ORDERED: ONDANSETRON 4 MG/2 ML (SDV) Z0FRAN IV PRN (06:00)
--- NOTE | 2020-03-22 06:07 | Pulmonary Consultation ---
History of Present Illness History of Present Illness Date Seen by Provider: Mar 22, 2020 Time Seen by Provider: 06:02 Date of Admission Allergies and Home Medications Allergies Coded Allergies: No Allergy Information Available (Unverified , 03/21/20) Past Xaxpqsm-Qokzpc-Uxkhgw Hx Past Med/Social Hx: Reviewed and Corrections made Patient Social History Alcohol Use: Occasionally Uses Recreational Drug Use: No Smoking Status: Current Everyday Smoker Type Used: Cigarettes Immunizations Up To Date Tetanus Booster (TDap): Unknown Seasonal Allergies Seasonal Allergies: Yes Past Medical History Surgeries: Yes Tonsillectomy Respiratory: Yes Asthma Cardiac: No Neurological: No Reproductive Disorders: No Genitourinary: No Gastrointestinal: No Musculoskeletal: No Endocrine: No HEENT: Yes (S/P TONSILLECTOMY) Tonsilitis Cancer: No Psychosocial: No Integumentary: No Blood Disorders: No Family Medical History FH: anemia 19 MOTHER G8 SISTER grandmother FH: diverticulitis grandmother No Pertinent Family Hx Review of Systems Time Seen by Provider: 06:11 Sepsis Event Evaluation Height, Weight, BMI Height: '" Weight: lbs. oz. kg; 32.07 BMI Method: Exam Exam Vital Signs Date Time Temp Pulse Resp B/P (MAP) Pulse Ox O2 Delivery O2 Flow Rate FiO2 03/22/20 05:29 37.2 93 20 118/76 97 Room Air 03/22/20 05:29 91 17 118/76 (90) 98 Room Air 03/22/20 05:14 37.2 98 20 112/81 98 Room Air 03/22/20 04:47 98 26 112/81 (91) 98 Room Air 03/22/20 04:42 110 03/22/20 03:43 38.8 112 124/73 99 03/22/20 03:23 38.8 114 130/70 99 Room Air 03/22/20 02:49 39.2 117 127/64 98 Room Air 03/22/20 02:31 39.2 121 138/105 99 Room Air 03/22/20 02:28 39.2 I & O 03/22/20 07:00 Intake Total 1720 ml Balance 1720 ml Height & Weight Height: '" Weight: lbs. oz. kg; 32.07 BMI Method: General Appearance: No Apparent Distress, WD/WN HEENT: PERRL/EOMI, TMs Normal, Moist Mucous Membranes, Pale Conjunctivae (L), Pale Conjunctivae (R); No Pharyngeal Erythema, No Photophobia, No Scleral Icterus (L), No Scleral Icterus (R); Other (PATCHY AREAS OF GINGIVAL INFLAMMATION AND WHITE EXUDATE TO GUMS AND ROOF OF MOUTH. NO DISCRETE ULCERS. NO BLEEDING FROM GUMS, BUT GUMS ARE PALE) Neck: Non Tender Respiratory: Normal Breath Sounds, No Accessory Muscle Use, No Respiratory Distress Cardiovascular: No Edema, No JVD, No Murmur, Normal Peripheral Pulses, Tachycardia Capillary Refill: Greater Than 3 Seconds Peripheral Pulses: 2+ Dorsalis Pedis (R), 2+ Left Dors-Pedis (L), 2+ Radial Pulses (R), 2+ Radial Pulses (L) Extremity: Normal Inspection, Normal Range of Motion, Non Tender, No Calf Tenderness, No Pedal Edema, Slow Capillary Refill Neurologic/Psychiatric: Alert, Oriented x3, No Motor/Sensory Deficits, Normal Mood/Affect, staffing assistant II-XII Norm as Tested Skin: Warm/Dry, Pallor, Other (4 CM LACERATION TO CROWN OF HEAD) Results Lab Laboratory Tests 03/21/20 23:27 Assessment/Plan Assessment/Plan s/p Syncope Sepsis with neutropenia -Ferrara culture -COVID pending -Continue Vanco and Zosyn for now -Check urine strep and legionella ag Severe Anemia -s/p 4 PRBC and 3 FFP 1 6pk platelets -monitor Pancytopenia with neutropenia -Consult oncology --Repeat labs, check HIV, RVP, EBV Hypokalemia -replace DEBORAH TANNER DO Mar 22, 2020 06:07
--- NOTE | 2020-03-22 06:45 | Diagnostic Imaging Report ---
PROCEDURE: CT head, face, and cervical spine without contrast. TECHNIQUE: Multiple contiguous axial images were obtained through the head, neck, and facial bones without the use of intravenous contrast. Sagittal and coronal reformations through the cervical spine and facial bones were also performed. Auto Exposure Controls were utilized during the CT exam to meet ALARA standards for radiation dose reduction. INDICATION: Fall. Head laceration. Neck pain. COMPARISON: None. FINDINGS: CT head: The ventricles and cortical sulci are age-appropriate. There is no midline shift or mass-effect. No acute intracranial hemorrhage is seen. There is no CT evidence of acute territorial ischemia. No focal masses or collections are present. The calvarium is intact. Scalp laceration is seen overlying the posterior midline near the vertex. CT face: No acute facial fractures are visualized. The mandible, zygomatic arches, and pterygoid plates are intact. The bilateral TMJ demonstrate normal articulation. No nasal bone fractures. The bony nasal septum is slightly deviated to the right without fracture. Mild mucosal thickening is seen in the bilateral maxillary sinuses. The mastoid air cells are well pneumatized. The globes and orbits are symmetric and unremarkable. No evidence of orbital rim fracture. CT cervical spine: No acute fracture or dislocation is seen in the cervical spine. No focal osseous lesions. Vertebral body heights are well-maintained. The craniocervical junction is well-maintained. Soft tissues of the neck are unremarkable. The included lung apices are clear. IMPRESSION: 1. No hemorrhage or focal intra-axial mass. No CT evidence of large acute territorial ischemia. 2. No acute fracture or dislocation in the cervical spine. 3. No acute facial fractures. Agree with overnight report. Dictated by: Dictated on workstation # [id number]
--- NOTE | 2020-03-22 06:52 | Diagnostic Imaging Report ---
EXAMINATION: Chest 1 view HISTORY: Fall. COMPARISON: None available. FINDINGS: The lung volumes are normal. No focal consolidation is seen. No large pleural effusion or pneumothorax is seen. The cardiomediastinal silhouette is normal in size and contour. No acute osseous abnormality is seen. IMPRESSION: 1. No acute pleuroparenchymal process. Dictated by: Dictated on workstation # [id number]
--- NOTE | 2020-03-22 07:30 | NUR ---
DRS. LIMA AND WESLY NOTIFIED OF CONSULT.
--- NOTE | 2020-03-22 07:43 | NUR ---
PHARMACY TO DOSE VANCOMYCIN; PATIENT WEIGHT 110 KG, SCr 1.04, CrCl 145.9, BMI 32.1; PATIENT RECEIVED 1G IN ED 03/22 0200 PER JAS AND 1G IN ICU PER JAKOB FOR A TOTAL OF 2G LOADING DOSE (20MG/KG X 110KG = 2200 ~ 2G); MAINT DOSE 15MG/KG X 110KG = 1650 ~ 1500MG Q12H; VANCOMYCIN TROUGH DUE 03/23 @ 1300. IF TROUGH >20, HOLD DOSE AND CONTACT PHARMACY FOR ADJUSTMENTS.
[2020-03-22] MEDS: PIPERACILLIN/TAZO 4.5 GM/NS 100 ML IV SCH ×4 (08:28→15:32)
[2020-03-22] MEDS ORDERED: PANTOPRAZOLE 40 MG (PROTONIX) VIAL IV SCH (09:00)
--- NOTE | 2020-03-22 10:07 | History & Physical-Hospitalist ---
History of Present Illness HPI/Chief Complaint CC: Sepsis with pancytopenia HPI: This is a 19yo clinic patient of [facility] who presented to the ER with hear trauma and LOC after door hitting him in the head and was found to have severe pancytopenia so he was pancultured and swabbed for COVID-19 (was swabbed 03/07/20 at [facility] and was negative) and given 4 units of blood and platelets and placed on broad spectrum abx and consulted trauma surgery for injuries and severe diarrhea and consulted Dr Lopez for pancytopenia. Source: RN/MD Exam Limitations: other (PPE) Date Seen 03/22/20 Time Seen by a Provider: 10:30 Attending Physician Александр Guevara MD PCP No,Local Physician Referring Physician Date of Admission Mar 22, 2020 at 02:00 Home Medications & Allergies Home Medications Reviewed patient Home Medication Reconciliation performed by pharmacy medication reconciliations motor vehicle technician and/or nursing. Patients Allergies have been reviewed. Allergies Allergies Coded Allergies No Known Drug Allergies (Unverified03/22/20) Past Sswmtcj-Zzepuc-Iovzjf Hx Past Med/Social Hx: Reviewed Nursing Past Med/Soc Hx, Reviewed and Corrections made Patient Social History Marrital Status: single Employed/Student: employed Alcohol Use: Occasionally Uses Recreational Drug Use: No Smoking Status: Current Everyday Smoker Type Used: Cigarettes Recent Foreign Travel: No Contact w/other who traveled: No Recent Hopitalizations: No Recent Infectious Disease Expo: No Immunizations Up To Date Tetanus Booster (TDap): Unknown Seasonal Allergies Seasonal Allergies: Yes Past Medical History Surgeries: Tonsillectomy Reproductive: No HEENT: Tonsilitis History of Blood Disorders: No Family History FH: anemia 19 MOTHER G8 SISTER grandmother FH: diverticulitis grandmother No Pertinent Family Hx Review of Systems Constitutional: see HPI, malaise, weakness Respiratory: dyspnea on exertion Physical Exam Physical Exam Vital Signs Vital Signs - First Documented 03/21/20 03/22/20 03/22/20 23:12 02:31 14:05 Temp 38.4 Pulse 122 Resp 18 B/P (MAP) 123/70 (87) Pulse Ox 99 O2 Delivery Room Air O2 Flow Rate 2.00 Capillary Refill : Less Than 3 Seconds Height, Weight, BMI Height: '" Weight: lbs. oz. kg; 32.07 BMI Method: General Appearance: No Apparent Distress, WD/WN Eyes: Right Eye Normal Inspection, Right Eye PERRL HEENT: PERRL/EOMI, Normal ENT Inspection, Pharynx Normal, Moist Mucous Membranes Neck: Full Range of Motion, Normal Inspection, Non Tender Respiratory: Chest Non Tender, Lungs Clear, Normal Breath Sounds, No Accessory Muscle Use, No Respiratory Distress Cardiovascular: Regular Rate, Rhythm, No Edema, No Gallop, No JVD, No Murmur, Normal Peripheral Pulses Gastrointestinal: Normal Bowel Sounds, No Organomegaly, No Pulsatile Mass, Non Tender, Soft Back: Normal Inspection, No CVA Tenderness, No Vertebral Tenderness Extremity: Normal Capillary Refill, Normal Inspection, Normal Range of Motion, Non Tender, No Calf Tenderness, No Pedal Edema Neurologic/Psychiatric: Alert, Oriented x3, No Motor/Sensory Deficits, Normal Mood/Affect Skin: Normal Color, Warm/Dry Lymphatic: No Adenopathy Results Results/Procedures Labs Laboratory Tests 03/21/20 23:27 03/22/20 10:57 Patient resulted labs reviewed. Assessment/Plan Admission Diagnosis Assessment: Head injury Pancytopenia requiring Hematology consultation along with transfusions of blood and platelets Smoker Fever COVID-19 pending Diarrhea Plan: Abx Monitor labs Hematology and surgery appreciated Admission Status: Inpatient Order (span 2 midnights) Reason for Inpatient Admission: severe pancytopenia Diagnosis/Problems Diagnosis/Problems (1) Neutropenia with fever Status: Acute (2) Closed head injury with brief loss of consciousness Status: Acute (3) Scalp laceration Status: Acute (4) Sepsis Status: Acute Clinical Quality Measures DVT/VTE Risk/Contraindication: Risk Factor Score Per Nursin RFS Level Per Nursing on Admit: 1=Low/No VTE PPX MARY STANLEY DO Mar 22, 2020 10:07
[2020-03-22 11:13] LABS: BASOPHILS % (AUTO) 0 % (0-10); EOSINOPHILS % (AUTO) 0 % (0-10); HEMATOCRIT 21 % (40-54); HEMOGLOBIN 7.4 G/DL (13.3-17.7); LYMPHOCYTES # (AUTO) 0.4 X 10^3 (1.0-4.0); LYMPHOCYTES % (AUTO) 78 % (12-44); MEAN CORPUSCULAR HEMOGLOBIN 32 PG (25-34); MEAN CORPUSCULAR HGB CONC 36 G/DL (32-36); MEAN CORPUSCULAR VOLUME 89 FL (80-99); MEAN PLATELET VOLUME 8.2 FL (7.4-10.4); MONOCYTES # (AUTO) 0.1 X 10^3 (0.0-1.0); MONOCYTES % (AUTO) 13 % (0-12); NEUTROPHILS # (AUTO) 0.1 X 10^3 (1.8-7.8); NEUTROPHILS % (AUTO) 9 % (42-75)
[2020-03-22 11:19] LABS: PLATELET COUNT 22 10^3/uL (130-400); WHITE BLOOD COUNT 0.6 10^3/uL (4.3-11.0)
[2020-03-22 11:29] LABS: CHLORIDE 102 MMOL/L (98-107); POTASSIUM 3.1 MMOL/L (3.6-5.0); SODIUM 139 MMOL/L (135-145)
[2020-03-22 11:30] LABS: CALCIUM 8.2 MG/DL (8.5-10.1)
[2020-03-22] MEDS ORDERED: LOPERAMIDE 2 MG (IMODIUM) TABLET PO PRN (11:30)
[2020-03-22] MEDS ORDERED: LOPERAMIDE 2 MG (IMODIUM) TABLET PO ONE (11:30)
[2020-03-22 11:31] LABS: GLUCOSE 116 MG/DL (70-105)
[2020-03-22 11:32] LABS: CARBON DIOXIDE 23 MMOL/L (21-32)
[2020-03-22 11:33] LABS: BILIRUBIN,TOTAL 1.6 MG/DL (0.1-1.0)
[2020-03-22 11:35] LABS: ALKALINE PHOSPHATASE 44 U/L (40-136); CREATININE SERUM 0.85 MG/DL (0.60-1.30); GFR ESTIMATED > 60; PHOSPHORUS 3.2 MG/DL (2.3-4.7)
[2020-03-22 11:36] LABS: BUN/CREATININE RATIO 15
[2020-03-22 11:38] LABS: ALANINE AMINOTRANSFERASE 29 U/L (0-55); MAGNESIUM 2.2 MG/DL (1.6-2.4)
--- NOTE | 2020-03-22 12:16 | NUR ---
talked with closest relative who says he had a bad night. He has been attending [facility] here in [place]. Linux Kernel Engineer will let him rest today and visit tomorrow.
[2020-03-22] MEDS ORDERED: LIDOCAINE 1% INJ 20 ML 20 ML VIAL ONE (13:43)
[2020-03-22] MEDS ORDERED: fentaNYL INJECTION 100 MCG/2 ML AMP ONE (13:43)
[2020-03-22] MEDS ORDERED: MIDAZOLAM 2 MG/2 ML (VERSED) VIAL ONE (13:43)
[2020-03-22] MEDS ORDERED: LIDOCAINE 1% INJ 20 ML 20 ML VIAL INJ ONE (13:45)
[2020-03-22] MEDS ORDERED: fentaNYL INJECTION 100 MCG/2 ML AMP IVP ONE (13:45)
[2020-03-22] MEDS ORDERED: MIDAZOLAM 2 MG/2 ML (VERSED) VIAL IVP ONE (13:45)
[2020-03-22 14:43] LABS: ABSOLUTE RETIC # 1 10e9/L (24-90); RETICULOCYTE % 1.46 % (0.50-2.40)
--- NOTE | 2020-03-22 14:49 | Pre-Procedure Progress Note ---
Pre-Procedure Progress Note H&P Reviewed The H&P was reviewed, patient examined and no changes noted. Date H&P Reviewed: Mar 22, 2020 Time H&P Reviewed: 13:00 Pre-Procedure Diagnosis: anemia AKBAR CHAVARRIA MD Mar 22, 2020 14:49
--- NOTE | 2020-03-22 14:54 | Diagnostic Imaging Report ---
INDICATION: Low platelets and anemia. Patient was brought to the CT suite placed on table in the prone position. Axial imaging through the pelvis was performed to evaluate appropriate entry site. Low back was prepped and draped in usual sterile fashion. Small amount of 1% lidocaine was utilized for local anesthesia. A bone marrow biopsy needle was advanced and placed with its tip along the posterior cortex of the right iliac bone. The needle was advanced through the cortex utilizing a bone marrow drill. Bone marrow aspirate was obtained. Next, the drill was utilized to obtain a bone marrow core biopsy. Needle was removed and hemostasis was obtained using manual compression. Patient tolerated procedure well and left the department in stable condition. Patient was given 50 mcg of fentanyl intravenously during the procedure. IMPRESSION: CT-guided bone marrow aspiration and core biopsy, as described. Dictated by: Dictated on workstation # [id number]
[2020-03-22] MEDS: VANCOMYCIN 1500 MG/NS 500 ML IVPB IV SCH ×2 (15:00)
[2020-03-22] MEDS ORDERED: HYDROcodone/APAP 5 MG/325 MG (LORTAB) TAB PO PRN (15:15)
--- NOTE | 2020-03-22 17:45 | NUR ---
pt moved to room 512 where her received a full shower and cleaning of his head wound. then placed back in bed with telemetry on and instructed not to get up with out staff at bedside. pt ambulates well but is still (whoozy) per his definition.
--- NOTE | 2020-03-22 20:55 | Consultation - Surgery ---
History of Present Illness History of Present Illness Patient Consulted On(maxwell/time) 03/22/20 12:50 Date Seen by Provider: Mar 22, 2020 Time Seen by Provider: 12:50 History of Present Illness Consult requested by Dr. Munson for trauma Patient is a 19 year old that was coming up stairs and got struck in head with door. He fell backwards striking head and had LOC. Unknown time but was witnessed and was told about 15 seconds. Had laceration that has been stapled. Patient has been feeling dizzy prior to getting hit. Is not having any neck,chest or abdominal pain 2 weeks ago was having GI issues of n/v and diarrhea. Had been swabbed for Covid at that time and was negative he states. Patient had was found to have a hgb of 3.5. He states he has not noticed any dark or bloody stools. He states from the laceration he felt he lost a lot of blood. Had fever. Currently feeling better. Has been pancultured and Covid testing pending. Recently treated for gum infection. Ct Head/neck no acute traumatic injury, Chest x ray no acute injury. Allergies and Home Medications Allergies Coded Allergies: No Known Drug Allergies (Unverified , 03/22/20) Patient Home Medication List Home Medication List Reviewed: Yes Past Ocxbvqm-Bkoqvd-Ekdybo Hx Patient Social History Alcohol Use: Occasionally Uses Recreational Drug Use: No Smoking Status: Current Everyday Smoker Type Used: Cigarettes Recent Foreign Travel: No Contact w/Someone Who Travel: No Recent Infectious Disease Expo: No Recent Hopitalizations: No Immunizations Up To Date Tetanus Booster (TDap): Unknown Seasonal Allergies Seasonal Allergies: Yes Surgeries History of Surgeries: Yes Surgeries: Tonsillectomy Respiratory History of Respiratory Disorde: Yes Respiratory Disorders: Asthma Cardiovascular History of Cardiac Disorders: No Neurological History of Neurological Disord: No Reproductive System Hx Reproductive Disorders: No Genitourinary History of Genitourinary Disor: No Gastrointestinal History of Gastrointestinal Di: No Musculoskeletal History of Musculoskeletal Dis: No Endocrine History of Endocrine Disorders: No HEENT History of HEENT Disorders: Yes (S/P TONSILLECTOMY) HEENT Disorders: Tonsilitis Cancer History of Cancer: No Psychosocial History of Psychiatric Problem: No Integumentary History of Skin or Integumenta: No Blood Transfusions History of Blood Disorders: No Reviewed Nursing Assessment Reviewed/Agree w Nursing PMH: Yes Family Medical History Significant Family History: No Pertinent Family Hx Family Medial History: FH: anemia 19 MOTHER G8 SISTER grandmother FH: diverticulitis grandmother Review of Systems-General Constitutional: dizziness, weakness EENTM: dental problems; No eye pain, No vision loss Respiratory: No cough; dyspnea on exertion; No hemoptysis; short of breath Cardiovascular: no symptoms reported; No chest pain, No edema Gastrointestinal: see HPI; No abdominal pain; diarrhea; No hematemesis Genitourinary: no symptoms reported; No decreased output, No discharge Musculoskeletal: no symptoms reported; No back pain, No joint pain Skin: see HPI, other (head laceration) Psychiatric/Neurological: Denies Anxiety, Denies Depressed, Denies Emotional Problems All Other Systems Reviewed Negative Unless Noted: Yes (Negative excepted noted.) Physical Exam-General Problems Physical Exam Vital Signs Vital Signs - First Documented 03/21/20 03/22/20 03/22/20 23:12 02:31 14:05 Temp 38.4 Pulse 122 Resp 18 B/P (MAP) 123/70 (87) Pulse Ox 99 O2 Delivery Room Air O2 Flow Rate 2.00 Capillary Refill : Less Than 3 Seconds General Appearance: WD/WN, no apparent distress HEENT: PERRL/EOMI, other (laceration posterior head with lillian) Neck: non-tender, full range of motion, supple Respiratory: chest non-tender, no respiratory distress, no accessory muscle use Cardiovascular: regular rate, rhythm, no edema Gastrointestinal: non tender, soft, no organomegaly, no pulsatile mass Rectal: deferred Extremities: non-tender, normal inspection, no pedal edema Neurologic/Psychiatric: final inspector and tester II-XII nml as tested, no motor/sensory deficits, alert, normal mood/affect, oriented x 3 Skin: normal color, warm/dry, other (laceration posterior scalp) Lymphatic: no adenopathy; No axilla node tender (R), No axilla node tender (L) Data Review Labs Laboratory Tests 03/21/20 23:27: White Blood Count 1.0*L, Red Blood Count 1.02L, Hemoglobin 3.5*L, Hematocrit 10*L, Mean Corpuscular Volume 96, Mean Corpuscular Hemoglobin 34, Mean Corpuscular Hemoglobin Concent 36, Red Cell Distribution Width 15.1H, Platelet Count 12*L, Mean Platelet Volume , Neutrophils (%) (Auto) 8L, Lymphocytes (%) (Auto) 77H, Monocytes (%) (Auto) 13H, Eosinophils (%) (Auto) 1, Basophils (%) (Auto) 2, Neutrophils # (Auto) 0.1L, Lymphocytes # (Auto) 0.8L, Monocytes # (Auto) 0.1, Eosinophils # (Auto) 0.0, Basophils # (Auto) 0.0, Neutrophils % (Manual) 11, Lymphocytes % (Manual) 67, Monocytes % (Manual) 7, Metamyelocytes % 3, Band Neutrophils 1, Nucleated Red Blood Cells 4, Atypical Lymphocytes 11, Anisocytosis SLIGHT, Microcytosis MODERATE, Erythrocyte Sedimentation Rate > 140H, Absolute Reticulocyte Count 1L, Percent Reticulocyte Count 1.46, Prothrombin Time 16.0H, INR Comment 1.2, Activated Partial Thromboplast Time 28, D-Dimer > 20.00*H, Sodium Level 138, Potassium Level 3.2L, Chloride Level 100, Carbon Dioxide Level 22, Anion Gap 16H, Blood Urea Nitrogen 14, Creatinine 1.04, Estimat Glomerular Filtration Rate > 60, BUN/Creatinine Ratio 13, Glucose Level 140H, Glucometer 159H, Lactic Acid Level 1.86, Calcium Level 8.7, Corrected Calcium 8.6, Magnesium Level 2.4, Total Bilirubin 0.7, Aspartate Amino Transf (AST/SGOT) 30, Alanine Aminotransferase (ALT/SGPT) 35, Alkaline Phosphatase 36L, Lactate Dehydrogenase 290H, Total Creatine Kinase 354H, Creatine Kinase MB 0.5, Myoglobin 117.1H, Troponin I < 0.028, C-Reactive Protein High Sensitivity 18.10H , B-Type Natriuretic Peptide 85.4, Total Protein 7.2, Albumin 4.1, Amylase Level 44, Lipase 26, Procalcitonin 0.22H, TSH Scott Testing 0.85, Serum Alcohol < 10 03/21/20 23:50: 03/22/20 02:37: Urine Color DARK YELLOW, Urine Clarity SL CLOUDY, Urine pH 6.0, Urine Specific [place] 1.020, Urine Protein 2+H, Urine Glucose (UA) NEGATIVE, Urine Ketones TRACEH, Urine Nitrite NEGATIVE, Urine Bilirubin NEGATIVE, Urine Urobilinogen 1.0, Urine Leukocyte Esterase NEGATIVE, Urine RBC (Auto) 2+H, Urine RBC RARE, Urine WBC NONE, Urine Squamous Epithelial Cells 2-5, Urine Crystals NONE, Urine Bacteria NEGATIVE, Urine Casts PRESENT, Urine Hyaline Casts 2-5H, Urine Mucus SMALLH, Urine Culture Indicated NO, Urine Opiates Screen NEGATIVE, Urine Oxycodone Screen NEGATIVE, Urine Methadone Screen NEGATIVE, Urine Propoxyphene Screen NEGATIVE, Urine Barbiturates Screen NEGATIVE, Ur Tricyclic Antidepressants Screen NEGATIVE, Urine Phencyclidine Screen NEGATIVE, Urine Amphetamines Screen NEGATIVE, Urine Methamphetamines Screen NEGATIVE, Urine Benzodiazepines Screen NEGATIVE, Urine Cocaine Screen NEGATIVE, Urine Cannabino ids Screen NEGATIVE 03/22/20 06:45: Lab Scanned Report Transfusion Reaction Form 03/22/20 09:40: Stool Occult Blood Immunoassay POSITIVEH 03/22/20 10:28: Iron Level 118, Total Iron Binding Capacity 279L, Unsaturated Iron Binding Capacity 161, Transferrin % Saturation 42 03/22/20 10:57: White Blood Count 0.6*L, Red Blood Count 2.34L, Hemoglobin 7.4#L, Hematocrit 21L , Mean Corpuscular Volume 89, Mean Corpuscular Hemoglobin 32, Mean Corpuscular Hemoglobin Concent 36, Red Cell Distribution Width 15.0H, Platelet Count 22*L, Mean Platelet Volume 8.2, Neutrophils (%) (Auto) 9L, Lymphocytes (%) (Auto) 78H, Monocytes (%) (Auto) 13H, Eosinophils (%) (Auto) 0, Basophils (%) (Auto) 0, Neutrophils # (Auto) 0.1L, Lymphocytes # (Auto) 0.4L, Monocytes # (Auto) 0.1, Eosinophils # (Auto) 0.0, Basophils # (Auto) 0.0, Sodium Level 139, Potassium Level 3.1L, Chloride Level 102, Carbon Dioxide Level 23, Anion Gap 14, Blood Urea Nitrogen 13, Creatinine 0.85, Estimat Glomerular Filtration Rate > 60, BUN/Creatinine Ratio 15, Glucose Level 116H, Calcium Level 8.2L, Corrected Calcium 8.2L, Phosphorus Level 3.2, Magnesium Level 2.2, Total Bilirubin 1.6H, Aspartate Amino Transf (AST/SGOT) 22, Alanine Aminotransferase (ALT/SGPT) 29, Alkaline Phosphatase 44, Total Protein 7.0, Albumin 4.0 Microbiology 03/21/20 Blood Culture - Preliminary, Resulted No growth Assessment/Plan Assessment/Plan Assessment/Plan fall, struck by door head laceration LOC occult + stool with severe anemia Patient transfused per massive transfusion protocol continue to monitor hgb and transfuse per protocol patient with laceration already repaired with severe anemia and occult + stool would recommend egd/colonoscopy inpatient vs outpatient covid pending no surgical intervention, will follow. Clinical Quality Measures DVT/VTE Risk/Contraindication: Risk Factor Score Per Nursin RFS Level Per Nursing on Admit: 1=Low/No VTE PPX RAYMOND LIMA DO Mar 22, 2020 20:55
[2020-03-22] MEDS: ACETAMINOPHEN 500 MG TAB (TYLENOL) PO PRN (21:24)
[2020-03-23] VITALS (7 sets, daily range): BP systolic 117–151; BP diastolic 76–87
[2020-03-23] MEDS: PIPERACILLIN/TAZO 4.5 GM/NS 100 ML IV SCH ×4 (01:19→08:44)
[2020-03-23] MEDS: VANCOMYCIN 1500 MG/NS 500 ML IVPB IV SCH ×2 (01:19)
[2020-03-23] MEDS: ACETAMINOPHEN 500 MG TAB (TYLENOL) PO PRN ×3 (03:03→13:19)
[2020-03-23 03:05] LABS: ABSOLUTE RETIC # 23 10e9/L (24-90); BASOPHILS % (AUTO) 0 % (0-10); EOSINOPHILS % (AUTO) 0 % (0-10); LYMPHOCYTES # (AUTO) 1.1 X 10^3 (1.0-4.0); LYMPHOCYTES % (AUTO) 89 % (12-44); MEAN CORPUSCULAR HEMOGLOBIN 31 PG (25-34); MEAN CORPUSCULAR HGB CONC 35 G/DL (32-36); MEAN CORPUSCULAR VOLUME 90 FL (80-99); MEAN PLATELET VOLUME 10.3 FL (7.4-10.4); MONOCYTES # (AUTO) 0.1 X 10^3 (0.0-1.0); MONOCYTES % (AUTO) 6 % (0-12); NEUTROPHILS # (AUTO) 0.1 X 10^3 (1.8-7.8); NEUTROPHILS % (AUTO) 5 % (42-75); RED CELL DISTRIBUTION WIDTH 15.2 % (10.0-14.5); RETICULOCYTE % 1.13 % (0.50-2.40)
[2020-03-23 03:08] LABS: WHITE BLOOD COUNT 1.3 10^3/uL (4.3-11.0)
[2020-03-23 03:09] LABS: HEMATOCRIT 18 % (40-54); HEMOGLOBIN 6.4 G/DL (13.3-17.7); PLATELET COUNT 18 10^3/uL (130-400)
[2020-03-23 03:16] LABS: ALBUMIN 3.7 GM/DL (3.2-4.5); CHLORIDE 105 MMOL/L (98-107); POTASSIUM 3.2 MMOL/L (3.6-5.0); SODIUM 139 MMOL/L (135-145)
--- NOTE | 2020-03-23 03:16 | NUR ---
PT USED CALL LIGHT TO ASK FOR MORE BLANKETS. THIS RN WENT IN TO ASSESS PT AND PTS TEMP WAS 38.0. INFORMED PT THAT I CANNOT GIVE MORE BLANKETS HIS TEMP IS RISING AGAIN. WHILE IN PTS ROOM, PT UP TO BATHROOM. PT STARTED COMPLAINING OF SHIVERING AND WHILE ON TOILET PT COUGHED UP DIME SIZE BLOOD CLOT. PT PUT BACK TO BED AND PT STATES FEELS LIKE "MY ASTHMA IS ACTING UP". I ASKED PT IF SOB AND PT STATES "YES". CHECKED PTS VITAL SIGNS. VITAL SIGNS STABLE AT THIS TIME. SEE DOCUMENTATION FOR VITAL SIGNS. BLOOD WAS DRAWN WHILE IN PT ROOM AND BY THE TIME I WAS DONE DRAWING BLOOD PT WASNT SOB ANYMORE. WILL CONTINUE TO MONITOR PT.
[2020-03-23 03:17] LABS: CALCIUM 7.8 MG/DL (8.5-10.1)
[2020-03-23 03:18] LABS: GLUCOSE 98 MG/DL (70-105); TOTAL PROTEIN 6.6 GM/DL (6.4-8.2)
[2020-03-23 03:19] LABS: CARBON DIOXIDE 21 MMOL/L (21-32)
[2020-03-23 03:20] LABS: BILIRUBIN,TOTAL 1.2 MG/DL (0.1-1.0)
[2020-03-23 03:21] LABS: PHOSPHORUS 3.9 MG/DL (2.3-4.7)
[2020-03-23 03:22] LABS: ALKALINE PHOSPHATASE 37 U/L (40-136); CREATININE SERUM 0.81 MG/DL (0.60-1.30); GFR ESTIMATED > 60
[2020-03-23 03:23] LABS: BUN/CREATININE RATIO 7
[2020-03-23 03:25] LABS: ALANINE AMINOTRANSFERASE 25 U/L (0-55)
[2020-03-23 03:30] LABS: ANISOCYTOSIS MARKED; ATYPICAL LYMPHOCYTES 3 %; LYMPHOCYTES % (MANUAL) 93 %; MONOCYTES % (MANUAL) 2 %; NEUTROPHILS % (MANUAL) 2 %; NUCLEATED RED BLOOD CELLS 1
[2020-03-23] MEDS: POTASSIUM CL 10MEQ/50ML IVPB 50 ML IV SCH ×4 (04:46→06:56)
[2020-03-23] MEDS ORDERED: KCL 20 MEQ TAB (K-DUR) PO SCH (06:00)
[2020-03-23] MEDS ORDERED: POTASSIUM CL 10MEQ/50ML IVPB 50 ML IV SCH (06:00)
[2020-03-23] MEDS ORDERED: MAGNESIUM 1 GM/100 ML IVPB 100 ML IV SCH (06:00)
[2020-03-23] MEDS ORDERED: IBUPROFEN 600 MG (MOTRIN) TAB PO PRN (06:30)
--- NOTE | 2020-03-23 06:38 | Pulmonary Progress Note ---
Subjective Time Seen by a Provider: 06:33 Subjective/Events-last exam Pt has worsening SOB through the night. Sepsis Event Evaluation Height, Weight, BMI Height: '" Weight: lbs. oz. kg; 32.07 BMI Method: Focused Exam Lactate Level 03/21/20 23:27: Lactic Acid Level 1.86 Time of Focused Exam: 01:20 Exam Exam Vital Signs Date Time Temp Pulse Resp B/P (MAP) Pulse Ox O2 Delivery O2 Flow Rate FiO2 03/23/20 04:45 37.1 03/23/20 03:03 38.3 03/23/20 03:00 38.3 118 22 134/87 (103) 99 Room Air 03/23/20 01:00 106 03/23/20 01:00 36.6 99 18 128/83 (98) 98 Room Air 03/22/20 21:24 38.8 03/22/20 21:14 38.8 116 20 131/80 (97) 97 Room Air 03/22/20 20:30 Room Air 03/22/20 19:00 114 03/22/20 17:00 118 18 99/64 (76) 92 Nasal Cannula 2.00 03/22/20 16:00 116 17 102/64 (77) 93 Nasal Cannula 2.00 03/22/20 16:00 100 Room Air 03/22/20 15:00 128 37 116/78 (91) 96 Nasal Cannula 2.00 03/22/20 14:20 107 20 128/67 (87) 100 Nasal Cannula 2.00 03/22/20 14:15 105 16 117/72 (87) 100 Nasal Cannula 2.00 03/22/20 14:10 112 24 126/75 (92) 100 Nasal Cannula 2.00 03/22/20 14:05 107 25 124/77 (93) 100 Nasal Cannula 2.00 03/22/20 14:00 115 38 Room Air 03/22/20 13:00 108 22 125/76 (92) 99 Room Air 03/22/20 12:44 106 03/22/20 12:00 99 30 119/71 (87) 95 Room Air 03/22/20 12:00 100 Room Air 03/22/20 11:00 114 13 123/78 (93) 95 Room Air 03/22/20 10:00 115 13 126/78 (94) 100 Room Air 03/22/20 09:00 111 14 134/80 (98) 99 Room Air 03/22/20 08:37 37.1 104 22 126/81 100 Room Air 03/22/20 08:00 100 Room Air 03/22/20 08:00 37.1 113 25 113/70 (84) 100 Room Air 03/22/20 07:09 37.3 88 119/71 99 Room Air 03/22/20 06:54 37.1 89 18 120/75 99 Room Air 03/22/20 06:51 37.1 89 120/75 03/22/20 06:51 37.1 82 18 120/75 99 Room Air 03/22/20 06:45 88 21 120/75 (90) 100 Room Air 03/22/20 06:44 89 I & O 03/23/20 07:00 Intake Total 5070 ml Output Total 650 ml Balance 4420 ml Height & Weight Height: '" Weight: lbs. oz. kg; 32.07 BMI Method: General Appearance: No Apparent Distress, WD/WN HEENT: PERRL/EOMI, Normal ENT Inspection, Pharynx Normal, Moist Mucous Membranes Neck: Full Range of Motion, Normal Inspection, Non Tender Respiratory: Chest Non Tender, Lungs Clear, Normal Breath Sounds, No Accessory Muscle Use, No Respiratory Distress Cardiovascular: Regular Rate, Rhythm, No Edema, No Gallop, No JVD, No Murmur, Normal Peripheral Pulses Capillary Refill: Less Than 3 Seconds Peripheral Pulses: 2+ Dorsalis Pedis (R), 2+ Left Dors-Pedis (L), 2+ Radial Pulses (R), 2+ Radial Pulses (L) Gastrointestinal: non tender, soft, no organomegaly, no pulsatile mass Extremity: Normal Capillary Refill, Normal Inspection, Normal Range of Motion, Non Tender, No Calf Tenderness, No Pedal Edema Neurologic/Psychiatric: Alert, Oriented x3, No Motor/Sensory Deficits, Normal Mood/Affect Skin: Normal Color, Warm/Dry Lymphatic: No Adenopathy Results Lab Laboratory Tests 03/21/20 23:27 03/22/20 10:57 03/23/20 02:57 Assessment/Plan Assessment/Plan s/p Syncope Sepsis with neutropenia -Ferrara culture -COVID pending -Epifanio and Susana for now -Check urine strep and legionella ag Severe Anemia -s/p 4 PRBC and 3 FFP 1 6pk platelets -repeat 2 units PRBC and 1 unit of platelets -monitor -Gastric occult is positive -increase protonix to BID 40mg. Pancytopenia with neutropenia - oncology following Hypokalemia -replace SOB with hx of asthma -start combivent and Advair. DEBORAH TANNER DO Mar 23, 2020 06:38
[2020-03-23] MEDS ORDERED: PANTOPRAZOLE 40 MG (PROTONIX) VIAL IV SCH ×2 (06:45→09:00)
[2020-03-23] MEDS: NS IV 1000 ML 1,000 ML IV SCH (06:55)
[2020-03-23] MEDS ORDERED: ADVAIR HFA 115/21 MCG INHALER 8 GM IH SCH (08:00)
[2020-03-23] MEDS ORDERED: NS IV 500 ML 500 ML IV ONE (08:00)
[2020-03-23] MEDS: ALBUTEROL/IPRATROP (COMBIVENT RESPIMAT) 4 GM INHALER IH SCH ×3 (09:46→13:26)
--- NOTE | 2020-03-23 10:23 | Progress Note - Hospitalist ---
Subjective HPI/CC On Admission Date Seen by Provider: Mar 23, 2020 Time Seen by Provider: 11:30 CC: Sepsis with pancytopenia HPI: This is a 19yoHM clinic patient of [facility] who presented to the ER with hear trauma and LOC after door hitting him in the head and was found to have severe pancytopenia so he was pancultured and swabbed for COVID-19 (was swabbed 03/07/20 at [facility] and was negative) and given 4 units of blood and platelets and placed on broad spectrum abx and consulted trauma surgery for injuries and severe diarrhea and consulted Dr Lopez for pancytopenia. Subjective/Events-last exam Awaiting COVID testing Reviewed results of labs Dr. Lopez called me Acute leukemia will transfer to Review of Systems General: Fatigue, Malaise Focused Exam Lactate Level 03/21/20 23:27: Lactic Acid Level 1.86 Time of Focused Exam: 01:20 Objective Exam Vital Signs Vital Signs Date Time Temp Pulse Resp B/P (MAP) Pulse Ox O2 Delivery O2 Flow Rate FiO2 03/23/20 11:40 37.6 112 16 117/77 96 Room Air 03/22/20 17:00 2.00 Capillary Refill : Less Than 3 Seconds General Appearance: No Apparent Distress, WD/WN Respiratory: Chest Non Tender, Lungs Clear, Normal Breath Sounds, No Accessory Muscle Use, No Respiratory Distress Cardiovascular: Regular Rate, Rhythm, No Edema, No Gallop, No JVD, No Murmur, Normal Peripheral Pulses Neurologic/Psychiatric: Alert, Oriented x3, No Motor/Sensory Deficits, Normal Mood/Affect Results/Procedures Lab Laboratory Tests 03/23/20 02:57 Patient resulted labs reviewed. Assessment/Plan Assessment and Plan Assess & Plan/Chief Complaint Assessment: Pancytopenia Smoker COVID-19 pending s/p transfusion Plan: Hematology appreciated COVID-19 pending Diagnosis/Problems Diagnosis/Problems (1) Neutropenia with fever Status: Acute (2) Closed head injury with brief loss of consciousness Status: Acute (3) Scalp laceration Status: Acute (4) Sepsis Status: Acute Clinical Quality Measures DVT/VTE Risk/Contraindication: Risk Factor Score Per Nursin RFS Level Per Nursing on Admit: 1=Low/No VTE PPX MARY STANLEY DO Mar 23, 2020 10:23
[2020-03-23 11:51] LABS: FIBRINOGEN 280 MG/DL (221-496); INR 1.4 (0.8-1.4); PROTHROMBIN TIME PATIENT 17.8 SEC (12.2-14.7)
[2020-03-23 11:59] LABS: FIBRIN DEGRADATION PRODUCTS >= 20.00 UG/ML (0.00-0.49)
--- NOTE | 2020-03-23 12:07 | Discharge Summary ---
Discharge Summary Hospital Course Was the Problem List Reviewed?: Yes Problems/Dx: (1) Acute promyelocytic leukemia (2) Neutropenia with fever Status: Acute (3) Closed head injury with brief loss of consciousness Status: Acute (4) Scalp laceration Status: Acute (5) Sepsis Status: Acute Hospital Course Date of Admission: Mar 22, 2020 at 02:00 Admission Diagnosis : Family Physician/Provider: No,Local Physician Date of Discharge: 03/23/20 Discharge Diagnosis: Acute Leukemia, sepsis, fever, DIC Hospital Course: Brief course after admitted for pancytopenia. Antibiotics initiated. Hematology consulted. Results revealed acute leukemia. Transferred to [facility] Labs and Pending Lab Test: Laboratory Tests 03/23/20 02:57: White Blood Count 1.3*L, Red Blood Count 2.04L, Hemoglobin 6.4*L, Hematocrit 18*L, Mean Corpuscular Volume 90, Mean Corpuscular Hemoglobin 31, Mean Corpuscular Hemoglobin Concent 35, Red Cell Distribution Width 15.2H, Platelet Count 18*L, Mean Platelet Volume 10.3, Neutrophils (%) (Auto) 5L, Lymphocytes (%) (Auto) 89H, Monocytes (%) (Auto) 6, Eosinophils (%) (Auto) 0, Basophils (%) (Auto) 0, Neutrophils # (Auto) 0.1L, Lymphocytes # (Auto) 1.1, Monocytes # (Auto) 0.1, Eosinophils # (Auto) 0.0, Basophils # (Auto) 0.0, Neutrophils % (Manual) 2, Lymphocytes % (Manual) 93, Monocytes % (Manual) 2, Nucleated Red Blood Cells 1, Atypical Lymphocytes 3, Anisocytosis MARKED, Absolute Reticulocyte Count 23L, Percent Reticulocyte Count 1.13, Sodium Level 139, Potassium Level 3.2L, Chloride Level 105, Carbon Dioxide Level 21, Anion Gap 13, Blood Urea Nitrogen 6L, Creatinine 0.81, Estimat Glomerular Filtration Rate > 60, BUN/Creatinine Ratio 7, Glucose Level 98, Calcium Level 7.8L, Corrected Calcium 8.0L, Phosphorus Level 3.9, Magnesium Level 2.0, Total Bilirubin 1.2H, Aspartate Amino Transf (AST/SGOT) 24, Alanine Aminotransferase (ALT/SGPT) 25, Alkaline Phosphatase 37L, Lactate Dehydrogenase 343H, Total Protein 6.6, Albumin 3.7 03/23/20 10:45: Prothrombin Time 17.8H, INR Comment 1.4, Fibrinogen 280, D-Dimer >= 20.00*H Microbiology 03/22/20 MRSA Screen - Final, Complete MRSA not isolated 03/21/20 Blood Culture - Preliminary, Resulted No growth Assessment/Pt Instructions Transfer to [facility] Discharge Planning: <30 minutes discharge planning Discharge Instructions Discharge Diet: No Restrictions Pneumonia Vaccine Order Indica: Yes Discharge Physical Examination Vital Signs Vital Signs Date Time Temp Pulse Resp B/P (MAP) Pulse Ox O2 Delivery O2 Flow Rate FiO2 03/23/20 11:40 37.6 112 16 117/77 96 Room Air 03/22/20 17:00 2.00 General Appearance: No Apparent Distress, WD/WN Allergies: Coded Allergies: No Known Drug Allergies (Unverified , 03/22/20) Discharge Summary Date of Admission Mar 22, 2020 at 02:00 Date of Discharge Discharge Date: Mar 23, 2020 Admission Diagnosis Assessment: Head injury Pancytopenia requiring Hematology consultation along with transfusions of blood and platelets Smoker Fever COVID-19 pending Diarrhea Plan: Abx Monitor labs Hematology and surgery appreciated Discharge Diagnosis Assessment: Pancytopenia Smoker COVID-19 pending s/p transfusion Plan: Hematology appreciated COVID-19 pending (1) Neutropenia with fever Status: Acute (2) Closed head injury with brief loss of consciousness Status: Acute (3) Scalp laceration Status: Acute (4) Sepsis Status: Acute Clinical Quality Measures DVT/VTE Risk/Contraindication: Risk Factor Score Per Nursin RFS Level Per Nursing on Admit: 1=Low/No VTE PPX MARY STANLEY DO Mar 23, 2020 12:07
[2020-03-23] MEDS ORDERED: TROUGH ORDER-PHARMACY XX NR (13:00)
--- NOTE | 2020-03-23 13:12 | Progress Note ---
Standard Progress Note Progress Notes/Assess & Plan Date Seen by a Provider: Mar 23, 2020 Time Seen by a Provider: 12:45 Progress/Assessment & Plan Hematology consultation note Impression: 1. 19-year-old male admitted to the hospital with passing out at home and injuring his scalp. 2. Evaluation at the emergency room showed pancytopenia with WBC 1.0, hemoglobin 3.5 and platelets 12,000. 3. Urgent bone marrow aspiration and biopsy was done on 12/21/[address] Salma Yang from [facility] in [place] called today morning with the results favoring acute promyelocytic leukemia (APL). t15:17 by FISH is pending. Next 4. Pro time at the time of admission was 16 with d-dimer >20 but fibrinogen not done. Patient treated with massive transfusion protocol and received 4 units of PRBCs, 4 units of FFP and 1 unit platelets yesterday. Pro time 17.8, fibrinogen 260 and d-dimer >20 today. 5. Low-grade fever since admission. COVID-19 studies pending. Recommendations: 1. Will transfuse with 1 unit of platelets and 4 units FFP as well as 1 unit of packed red blood cells today. 2. Unfortunately ATRA is not available locally or regionally including both hospitals in [place] and all local pharmacies. 3. I have contacted the transfer center at [facility] and discussed the case with Dr. Salas in hematology who accepted the patient in transfer. As soon as a room is available, he will be transferred. I have notified Dr. Munson who is the admitting physician. Brief history: Mr. 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 Evaluation at the emergency room showed significant pancytopenia with hemoglobin level of 3.5 and massive transfusion protocol was started. He received 4 units of PRBCs, 4 units of FFP and 1 unit of platelets yesterday. Because of the low-grade fever, COVID-19 testing was done and patient was placed in isolation. Hematology consultation was requested because of the pancytopenia and an urgent bone marrow aspiration and biopsy was done under CT guidance. Preliminary results on the bone marrow was available today a.m. with the clinical diagnosis of acute promyelocytic leukemia. Past medical history is unremarkable with no major medical problems and no major surgeries. Social history: Patient is single and lives with a roommate in [facility]. 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 His father is in [place] and mother a few years ago. He has 4 siblings, 1 brother and 3 sisters who lives in [place] and [place]. No significant tobacco, alcohol or recreational drug use. Family history is significant for his mother who of a brain aneurysm. No other major medical problems in the family that the patient knows of. Physical examination showed a young male, well-developed and nourished, awake and oriented, in no acute distress. Low-grade fever of 37.6, pulse rate of 112, respirations 16, blood pressure 117/70. HEENT normocephalic with the laceration sutured on the scalp. Extraocular muscles intact, conjunctivae pale, oral mucosa moist. Neck was supple with no JVD. No lymphadenopathy palpable. Chest was symmetrical. Lungs clear to auscultation without wheezes or rales. Cardiovascular exam was regular in rate and rhythm, borderline tachycardic, no murmurs or gallops heard. Abdomen was soft, nontender with no hepatosplenomegaly or other masses palpable. Extremities showed no edema. Numerous ecchymosis noted on his extremities. Neurological examination grossly intact without focal motor deficits. Lab work was reviewed. At the time of presentation WBC 1.0, hemoglobin 3.5 and platelets 12,000 with a reticulocyte count markedly low. I reviewed the peripheral smear which confirmed the pancytopenia but no abnormal cells were noted. Chemistry panel showed normal electrolytes and renal function and liver function. LDH minimally elevated. Prothrombin time was 16 with d-dimer >20. DIC panel done today showed pro time 17.8, fibrinogen 260 and d-dimer >20. Bone marrow aspiration was mostly dry. Preliminary report this morning was a packed marrow with approximately 80 percent blasts morphologically consistent with APL. FISH testing for t15:17 is pending. Thank you for allowing me to participate in this patient's care. I will follow the patient with you. CC Jerica Munson D.O., [facility] Focused Exam Lactate Level 03/21/20 23:27: Lactic Acid Level 1.86 Time of Focused Exam: 01:20 JOSE JARRELL Mar 23, 2020 13:12
--- NOTE | 2020-03-23 13:19 | NUR ---
DR JARRELL CALLED BY RN AND NOTIFIED OF PT TEMPERATURE, STATED IT WAS OK TO GIVE TYLENOL PO AGAIN. NOTIFIED THAT TRANSPORT TEAM WAS HERE AND FFP HAD BEEN STARTED. Addendum: 03/23/20 at 1411 by ADRIANO COPELAND RN DR JARRELL CALLED AT 1311
--- NOTE | 2020-03-23 13:20 | NUR ---
1309 THIS RN IN ROOM DUE TO STARTING FFP, VITALS TAKEN WITH TEMP 103.4, PT O2 SAT LOW ON ROOM AIR AT 79%, THIS RN CALLED OTHER STAFF TO ROOM TO ASSIST WITH PT. PT PLACED ON HF O2 BY RT AT 13L WITH O2 SAT AT 94%. EMS STAFF HERE TO TRANSPORT PT. THIS RN CALLED DR JARRELL TO NOTIFY HIM CHANGE IN PT CONDITION. STATED THAT IF WE COULD GET PT SAT TO STAY UP CONTINUE WITH TRANSFER FOR PT AND SEND 1 UNIT OF PRBC WITH EMS FOR TRANSFUSION ON THE WAY. THIS RN SPOKE WITH EMS STAFF AND THEY ARE AWARE OF PLAN OF CARE FOR TRANSPORT.
--- NOTE | 2020-03-23 13:30 | NUR ---
Recvd request that pt desires a Passport Support Associate visit prior to his transfer. I arrived applied PPE and went to pts bedside, offered support and prayer.
[2020-03-23 13:39] LABS: RSV PCR TEST Not Detected (Not Detected)
--- NOTE | 2020-03-23 13:45 | NUR ---
PT LEAVING UNIT VIA CART ACCOMPANIED BY [facility] STAFF. REPORT CALLED TO [facility] FOR CONTINUING CARE.
== END 2020-03-23 13:45 | disposition short-term general hospital (02) | DRG 854 ==
LOC: ER 23:19 → ICU 03-22 02:00 → CSD 03-22 18:28
PROVIDERS: ADMIT Internal Medicine; ATTEND Internal Medicine
PROC: 0JQ00ZZ Repair Scalp Subcutaneous Tissue and Fascia, Open Approach (ICD-10-PCS; principal; 2020-03-22)
DX: A41.9 Sepsis, unspecified organism (principal); S06.9X9A Unspecified intracranial injury with loss of consciousness of unspecified duration, initial encounter; D61.818 Other pancytopenia; S01.01XA Laceration without foreign body of scalp, initial encounter; E87.6 Hypokalemia; J45.909 Unspecified asthma, uncomplicated; F17.210 Nicotine dependence, cigarettes, uncomplicated; K05.10 Chronic gingivitis, plaque induced; W22.8XXA Striking against or struck by other objects, initial encounter; Z20.828 Contact with and (suspected) exposure to other viral communicable diseases
CPT/HCPCS: 12002; 12013; 36415; 36430; 38222; 70450; 70486; 71045; 72125; 77012; 80053; 80306; 80320; 81000; 82150; 82274; 82550; 82553; 82962; 83540; 83550; 83605; 83615; 83690; 83735; 83874; 83880; 84100; 84145; 84443; 84484; 85007; 85025; 85027; 85045; 85379; 85384; 85610; 85652; 85730; 86141; 86663; 86664; 86665; 86703; 86769; 86850; 86900; 86901; 86920; 87040; 87077; 87081; 87449; 87631; 87635; 87899; 90715; 93005; 93041; 94640; 99291

== ENCOUNTER 2020-05-26 05:35 | Outpatient (CLI) | payer MEDICAID ==
[~2020-05-26] VITALS: Ht 185.5 cm; Wt 110.0 kg
[2020-05-26] MEDS ORDERED: POTA20TA15 PO ×2 (10:39)
[2020-05-26] MEDS ORDERED: ERGO50006 PO ×2 (10:39)
[2020-05-26] MEDS ORDERED: AMOX1TAB12 PO ×2 (10:39)
[2020-05-26] MEDS ORDERED: ONDA8TAB15 PO ×2 (10:39)
[2020-05-26] MEDS ORDERED: CALC667T7 PO ×2 (10:39)
[2020-05-26] MEDS ORDERED: TRET10CA2 PO ×2 (10:39)
== END 2020-05-26 10:52 ==
LOC: PREOP 05:35
PROVIDERS: ATTEND Surgery
DX: Z01.818 Encounter for other preprocedural examination (principal)

== ENCOUNTER 2020-05-28 07:12 | Day surgery (SDC) | payer MEDICAID ==
[~2020-05-28] VITALS: Ht 185.5 cm; Wt 110.0 kg
[~2020-05-28 07:12] MED LIST: AMOX1TAB12 PO; CALC667T7 PO; ERGO50006 PO; ONDA8TAB15 PO; POTA20TA15 PO; TRET10CA2 PO
[2020-05-28 07:25] VITALS: BP 122/95
[2020-05-28] MEDS ORDERED: LACTATED RINGERS 1,000 ML IV PRN (07:29)
[2020-05-28] MEDS ORDERED: BUP/EPI 0.25% 1:200,000 (MARCAINE) 30 ML VIAL ONE (07:39)
[2020-05-28] MEDS ORDERED: HEParin (CENTRAL IV FLUSH) 500 UNIT/5 ML SYR ONE (07:39)
[2020-05-28] MEDS ORDERED: 0.9% SODIUM CHLORIDE PF INJ 20 ML VIAL ONE (07:39)
[2020-05-28] MEDS ORDERED: ceFAZolin 2 GM IV Premixed 50 ML IV ONE (07:45)
[2020-05-28] MEDS ORDERED: PROPOFOL INJECTION 50 ML IV ONE (08:25)
[2020-05-28] MEDS ORDERED: MIDAZOLAM 2 MG/2 ML (VERSED) VIAL ONE (08:25)
--- NOTE | 2020-05-28 09:50 | Progress Note-Pre Operative ---
Pre-Operative Progress Note H&P Reviewed The H&P was reviewed, patient examined and no changes noted. Time Seen by Provider: 09:48 Date H&P Reviewed: May 28, 2020 Time H&P Reviewed: 09:49 Pre-Operative Diagnosis: Venous Insufficiency, Leukemia ANIYA SANDOVAL DO May 28, 2020 09:50
[2020-05-28] MEDS ORDERED: proPOfol 200 MG/20 ML (DIPRIVAN) VIAL IV ONE (10:15)
--- NOTE | 2020-05-28 10:30 | Progress Note-Post Operative ---
Post-Operative Progess Note Surgeon (s)/Research Agricultural Engineer (s) Surgeon ANIYA SANDOVAL DO Research Agricultural Engineer: SANJAY Sanford Pre-Operative Diagnosis Venous Insufficiency, Leukemia Post-Operative Diagnosis same Procedure & Operative Findings Date of Procedure 05/28/20 Procedure Performed/Findings PROCEDURE: [Right] subclavian port placement using ultrasound guidance. COMPLICATIONS: None. INDICATIONS: The patient is a 19 year old male [with Leukemia and Venous insufficiency]. Patient understands the risks and benefits of port placement and wished to proceed with the procedure. Consent was signed on the chart. PROCEDURE: The patient was taken to the operating suite, was prepped and draped in the sterile fashion. A surgical pause was performed. Using an 18 gauge finder needle with negative inspiration the subclavian vein was accessed. Dark nonpulsatile blood was withdrawn. The wire was inserted. Fluoroscopy assured proper placement. The needle was removed. A [#15] blade scalpel was used to make an incision over the [right anterior] chest. Cautery was used to dissect down to the pectoral fascia. A pocket was created with blunt dissection. The dilator sheath was then advanced over the wire under fluoroscopy and the dilator and wire were removed. The Groshong catheter was inserted through the sheath and the sheath was then removed. The Groshong wire was removed. The catheter was then tunneled to the right chest pocket. Fluoroscopy was used to cut to length and this was then attached to the port which was then placed within the pocket. The port was then accessed without difficulty. It was then flushed with saline and then heparin. The port was sutured to the pectoralis fascia with 3-0 Prolene. The subcutaneous tissues were then reapproximated using 3-0 Vicryl. The skin was closed with 4-0 undyed monocryl, 3 interrupted sub-cuticular stitches and then one at the stab incision. The areas were then washed and dried. Skin Affix was placed over the incisions. The patient tolerated the procedure well without complication and was taken to recovery room in stable condition. Anesthesia Type IV sedation Estimated Blood Loss Estimated blood loss (mL): scant Specimens/Packing Specimens Removed ANIYA Bustos DO May 28, 2020 10:30
[2020-05-28] MEDS ORDERED: HYDR-4226 PO ×2 (10:31)
--- NOTE | 2020-05-28 10:31 | Discharge Inst-Surgical ---
Discharge Inst-Surgical Depart Medication/Instructions New, Converted or Re-Newed RX: RX Given to Pt/Family Patient Instructions Follow up Appt: Make appointment for 1 week. [phone] Instructions: No strenuous activity. May shower in 24 hours, no tub bath or soaking. Use incentive spirometer at home as directed. No Smoking Skin/Wound Care: May remove bandages in am. You need to leave the Dermabond on incision it will fall off on it's own. Symptoms to Report: Appetite Changes, Extremity Discoloration, Numbness/Tingling, Swelling Increased, Bleeding Excessive, Eyesight Changes, Pain Increased, Urine Color Katheryn nge, Constipation(Persistent), Fever over 101 degree F, Pain/Pressure in chest, Urinating Difficulty, Cough Up/Vomit Blood, Heart Beat Irreg/Pounding, Pain/Pressure in jaw, Cramps in feet or legs, Lightheadedness, Pain/Pressure in shoulder, Diarrhea(Persistent), Memory Changes Suddenly, Questions/Concerns, Weight gain consecutive days, Dizziness/Fainting, Nausea/Vomiting, Shortness of Breath, Weight gain over 2 pounds If questions or concerns contact your physician Or seek help at emergency department. Activity Activity as Tolerated: Yes Activity Instructions: Avoid Stress to Incision Driving Instructions: No Driving/Refer to Dr. Noonan Discharge Diet: No Restrictions Diet After 24 Hours: Clear Liquid if Nauseous If Any Problems/Questions/Issu: Contact Your Physician, Go to Emergency Room Skin/Wound Care Infection Signs and Symptoms: Increased Redness, Foul Odor of Wound, Increased Drainage, Skin Itchy or Has a Rash, Increased Swelling, Temperature Above 101 F Bathing Instructions: Shower Stitches/[place]/Dermabond Dis: Dermabond Ice Pack: Ice On and Off Site ANIYA SANDOVAL DO May 28, 2020 10:31
[2020-05-28 10:34] VITALS: BP 109/62
[2020-05-28 10:40] VITALS: BP 105/54
[2020-05-28] MEDS ORDERED: MEPERIDINE (DEMEROL) INJ 50 MG/ML IVP ONE (10:45)
[2020-05-28] MEDS ORDERED: ONDANSETRON 4 MG/2 ML (SDV) Z0FRAN IVP PRN (10:45)
[2020-05-28] MEDS ORDERED: morphine INJ 10 MG/ML 1ML (SYR OR VIAL) IVP ONE (10:45)
[2020-05-28 10:50] VITALS: BP 103/64
[2020-05-28 11:05] VITALS: BP_SYST 110; BP_SYST 116; BP_DIAS 70; BP_DIAS 75
[2020-05-28 11:35] VITALS: BP 129/86
--- NOTE | 2020-05-28 12:25 | Anesthesia-General Post-Op ---
MAC Patient Condition Mental Status/LOC: Same as Preop Cardiovascular: Satisfactory Nausea/Vomiting: Absent Respiratory: Satisfactory Pain: Controlled Complications: Absent Post Op Complications Complications None Follow Up Care/Instructions Patient Instructions None needed. Anesthesiology Discharge Order Discharge Order Patient is doing well, no complaints, stable vital signs, no apparent adverse anesthesia problems. No complications reported per nursing. MAGAN DODD CRNA May 28, 2020 12:25
--- NOTE | 2020-05-28 15:39 | Diagnostic Imaging Report ---
INDICATION: Status post port placement. COMPARISON: None Total fluoroscopy time: 4 seconds Total number of fluoroscopic images saved: 1 FINDINGS: Single intraoperative image intensifier view of the chest was obtained during Port-A-Cath placement. Image provided shows right subclavian approach. Central tip of the catheter is obscured. Evaluation for pneumothorax is suboptimal given fluoroscopic modality. Please note, interpreting radiologist was not present during the procedure. IMPRESSION: 1. Fluoroscopic guidance provided during Port-A-Cath placement. Dictated by: Dictated on workstation # [id number]
== END 2020-05-28 11:35 | disposition home or self-care (01) ==
LOC: SDC 07:12
PROVIDERS: ATTEND Surgery
DX: C92.40 Acute promyelocytic leukemia, not having achieved remission (principal); I87.2 Venous insufficiency (chronic) (peripheral); J45.909 Unspecified asthma, uncomplicated; G40.909 Epilepsy, unspecified, not intractable, without status epilepticus; Z79.899 Other long term (current) drug therapy
CPT/HCPCS: 76000; 87081

== ENCOUNTER 2020-07-19 13:33 | Outpatient (RCR) | payer MEDICAID, OTHER ==
[2020-04-26 13:13] LABS: BASOPHILS % (AUTO) 1 % (0-10); EOSINOPHILS % (AUTO) 1 % (0-10); HEMATOCRIT 30 % (40-54); HEMOGLOBIN 9.5 G/DL (13.3-17.7); LYMPHOCYTES # (AUTO) 1.3 X 10^3 (1.0-4.0); LYMPHOCYTES % (AUTO) 60 % (12-44); MEAN CORPUSCULAR HEMOGLOBIN 30 PG (25-34); MEAN CORPUSCULAR HGB CONC 32 G/DL (32-36); MEAN CORPUSCULAR VOLUME 95 FL (80-99); MEAN PLATELET VOLUME 9.1 FL (7.4-10.4); MONOCYTES # (AUTO) 0.5 X 10^3 (0.0-1.0); MONOCYTES % (AUTO) 25 % (0-12); NEUTROPHILS # (AUTO) 0.3 X 10^3 (1.8-7.8); NEUTROPHILS % (AUTO) 13 % (42-75); PLATELET COUNT 632 10^3/uL (130-400); WHITE BLOOD COUNT 2.1 10^3/uL (4.3-11.0)
[2020-04-26 13:31] LABS: BUN/CREATININE RATIO 11; CALCIUM 9.4 MG/DL (8.5-10.1); CARBON DIOXIDE 25 MMOL/L (21-32); CHLORIDE 106 MMOL/L (98-107); CREATININE SERUM 0.71 MG/DL (0.60-1.30); GFR ESTIMATED > 60; GLUCOSE 94 MG/DL (70-105); PHOSPHORUS 4.1 MG/DL (2.3-4.7); SODIUM 139 MMOL/L (135-145)
[2020-04-26 13:54] LABS: MAGNESIUM 2.1 MG/DL (1.6-2.4)
[2020-04-29 13:10] LABS: BASOPHILS % (AUTO) 1 % (0-10); EOSINOPHILS % (AUTO) 1 % (0-10); HEMATOCRIT 32 % (40-54); HEMOGLOBIN 9.9 G/DL (13.3-17.7); LYMPHOCYTES % (AUTO) 63 % (12-44); MEAN CORPUSCULAR HEMOGLOBIN 30 PG (25-34); MEAN CORPUSCULAR HGB CONC 31 G/DL (32-36); MEAN CORPUSCULAR VOLUME 95 FL (80-99); MEAN PLATELET VOLUME 9.2 FL (7.4-10.4); MONOCYTES # (AUTO) 0.7 X 10^3 (0.0-1.0); MONOCYTES % (AUTO) 21 % (0-12); NEUTROPHILS # (AUTO) 0.5 X 10^3 (1.8-7.8); NEUTROPHILS % (AUTO) 16 % (42-75); PLATELET COUNT 628 10^3/uL (130-400); WHITE BLOOD COUNT 3.2 10^3/uL (4.3-11.0)
[2020-04-29 13:31] LABS: BUN/CREATININE RATIO 13; CALCIUM 9.2 MG/DL (8.5-10.1); CARBON DIOXIDE 23 MMOL/L (21-32); CHLORIDE 107 MMOL/L (98-107); GFR ESTIMATED > 60; GLUCOSE 115 MG/DL (70-105); MAGNESIUM 1.8 MG/DL (1.6-2.4); PHOSPHORUS 3.2 MG/DL (2.3-4.7); POTASSIUM 3.4 MMOL/L (3.6-5.0); SODIUM 139 MMOL/L (135-145)
[2020-04-30 14:19] LABS: BILIRUBIN,URINE NEGATIVE (NEGATIVE); CLARITY,URINE CLEAR; COLOR,URINE YELLOW; GLUCOSE, URINE (UA) NEGATIVE (NEGATIVE); KETONES,URINE NEGATIVE (NEGATIVE); LEUKOCYTE ESTERASE ,URINE NEGATIVE (NEGATIVE); NITRITE,URINE NEGATIVE (NEGATIVE); PH,URINE 7.5 (5-9); PROTEIN,URINE NEGATIVE (NEGATIVE)
[2020-04-30 14:27] LABS: BACTERIA,URINE NEGATIVE /HPF; SQUAMOUS EPITHELIAL CELL,UR RARE /HPF
[2020-05-03 13:11] LABS: BASOPHILS % (AUTO) 0 % (0-10); EOSINOPHILS % (AUTO) 1 % (0-10); HEMATOCRIT 34 % (40-54); HEMOGLOBIN 10.8 G/DL (13.3-17.7); LYMPHOCYTES # (AUTO) 2.5 X 10^3 (1.0-4.0); LYMPHOCYTES % (AUTO) 50 % (12-44); MEAN CORPUSCULAR HEMOGLOBIN 30 PG (25-34); MEAN CORPUSCULAR HGB CONC 32 G/DL (32-36); MEAN CORPUSCULAR VOLUME 95 FL (80-99); MEAN PLATELET VOLUME 9.1 FL (7.4-10.4); MONOCYTES # (AUTO) 0.6 X 10^3 (0.0-1.0); MONOCYTES % (AUTO) 12 % (0-12); NEUTROPHILS # (AUTO) 1.8 X 10^3 (1.8-7.8); NEUTROPHILS % (AUTO) 37 % (42-75); PLATELET COUNT 524 10^3/uL (130-400); WHITE BLOOD COUNT 4.9 10^3/uL (4.3-11.0)
[2020-05-03 13:34] LABS: BUN/CREATININE RATIO 17; CALCIUM 9.3 MG/DL (8.5-10.1); CARBON DIOXIDE 26 MMOL/L (21-32); CHLORIDE 106 MMOL/L (98-107); CREATININE SERUM 0.69 MG/DL (0.60-1.30); GFR ESTIMATED > 60; GLUCOSE 80 MG/DL (70-105); MAGNESIUM 2.2 MG/DL (1.6-2.4); PHOSPHORUS 4.6 MG/DL (2.3-4.7); POTASSIUM 4.1 MMOL/L (3.6-5.0); SODIUM 139 MMOL/L (135-145)
[2020-05-06 13:09] LABS: BASOPHILS % (AUTO) 0 % (0-10); EOSINOPHILS % (AUTO) 0 % (0-10); HEMATOCRIT 37 % (40-54); HEMOGLOBIN 11.8 G/DL (13.3-17.7); LYMPHOCYTES # (AUTO) 2.5 X 10^3 (1.0-4.0); LYMPHOCYTES % (AUTO) 32 % (12-44); MEAN CORPUSCULAR HEMOGLOBIN 30 PG (25-34); MEAN CORPUSCULAR HGB CONC 32 G/DL (32-36); MEAN CORPUSCULAR VOLUME 95 FL (80-99); MEAN PLATELET VOLUME 9.5 FL (7.4-10.4); MONOCYTES # (AUTO) 0.4 X 10^3 (0.0-1.0); MONOCYTES % (AUTO) 5 % (0-12); NEUTROPHILS # (AUTO) 5.1 X 10^3 (1.8-7.8); NEUTROPHILS % (AUTO) 63 % (42-75); PLATELET COUNT 456 10^3/uL (130-400)
[2020-05-06 13:34] LABS: BUN/CREATININE RATIO 16; CALCIUM 9.4 MG/DL (8.5-10.1); CARBON DIOXIDE 26 MMOL/L (21-32); CHLORIDE 103 MMOL/L (98-107); CREATININE SERUM 0.73 MG/DL (0.60-1.30); GFR ESTIMATED > 60; GLUCOSE 128 MG/DL (70-105); MAGNESIUM 2.1 MG/DL (1.6-2.4); PHOSPHORUS 3.7 MG/DL (2.3-4.7); POTASSIUM 3.6 MMOL/L (3.6-5.0); SODIUM 138 MMOL/L (135-145)
[2020-05-10 13:01] LABS: BASOPHILS % (AUTO) 0 % (0-10); EOSINOPHILS # (AUTO) 0.1 10^3/uL (0.0-0.3); EOSINOPHILS % (AUTO) 1 % (0-10); HEMATOCRIT 38 % (40-54); HEMOGLOBIN 11.9 G/DL (13.3-17.7); LYMPHOCYTES # (AUTO) 2.8 X 10^3 (1.0-4.0); LYMPHOCYTES % (AUTO) 29 % (12-44); MEAN CORPUSCULAR HEMOGLOBIN 30 PG (25-34); MEAN CORPUSCULAR HGB CONC 32 G/DL (32-36); MEAN CORPUSCULAR VOLUME 95 FL (80-99); MEAN PLATELET VOLUME 9.2 FL (7.4-10.4); MONOCYTES # (AUTO) 0.4 X 10^3 (0.0-1.0); MONOCYTES % (AUTO) 4 % (0-12); NEUTROPHILS # (AUTO) 6.3 X 10^3 (1.8-7.8); NEUTROPHILS % (AUTO) 65 % (42-75); PLATELET COUNT 388 10^3/uL (130-400); WHITE BLOOD COUNT 9.7 10^3/uL (4.3-11.0)
[2020-05-10 13:20] LABS: BUN/CREATININE RATIO 16; CALCIUM 9.7 MG/DL (8.5-10.1); CARBON DIOXIDE 28 MMOL/L (21-32); CHLORIDE 102 MMOL/L (98-107); CREATININE SERUM 0.69 MG/DL (0.60-1.30); GFR ESTIMATED > 60; GLUCOSE 97 MG/DL (70-105); MAGNESIUM 1.8 MG/DL (1.6-2.4); PHOSPHORUS 4.6 MG/DL (2.3-4.7); POTASSIUM 4.2 MMOL/L (3.6-5.0); SODIUM 139 MMOL/L (135-145)
[2020-05-13 13:25] LABS: BASOPHILS % (AUTO) 0 % (0-10); EOSINOPHILS # (AUTO) 0.1 10^3/uL (0.0-0.3); EOSINOPHILS % (AUTO) 1 % (0-10); HEMATOCRIT 40 % (40-54); HEMOGLOBIN 12.4 G/DL (13.3-17.7); LYMPHOCYTES # (AUTO) 2.4 X 10^3 (1.0-4.0); LYMPHOCYTES % (AUTO) 23 % (12-44); MEAN CORPUSCULAR HEMOGLOBIN 30 PG (25-34); MEAN CORPUSCULAR HGB CONC 31 G/DL (32-36); MEAN CORPUSCULAR VOLUME 95 FL (80-99); MEAN PLATELET VOLUME 9.9 FL (7.4-10.4); MONOCYTES # (AUTO) 0.8 X 10^3 (0.0-1.0); MONOCYTES % (AUTO) 7 % (0-12); NEUTROPHILS # (AUTO) 7.3 X 10^3 (1.8-7.8); NEUTROPHILS % (AUTO) 69 % (42-75); PLATELET COUNT 392 10^3/uL (130-400); WHITE BLOOD COUNT 10.6 10^3/uL (4.3-11.0)
[2020-05-13 13:43] LABS: BUN/CREATININE RATIO 23; CALCIUM 9.3 MG/DL (8.5-10.1); CARBON DIOXIDE 25 MMOL/L (21-32); CHLORIDE 104 MMOL/L (98-107); CREATININE SERUM 0.71 MG/DL (0.60-1.30); GFR ESTIMATED > 60; GLUCOSE 105 MG/DL (70-105); MAGNESIUM 1.8 MG/DL (1.6-2.4); PHOSPHORUS 3.5 MG/DL (2.3-4.7); POTASSIUM 3.8 MMOL/L (3.6-5.0); SODIUM 138 MMOL/L (135-145)
[2020-05-24 13:16] LABS: BASOPHILS % (AUTO) 0 % (0-10); EOSINOPHILS # (AUTO) 0.2 10^3/uL (0.0-0.3); EOSINOPHILS % (AUTO) 2 % (0-10); HEMATOCRIT 42 % (40-54); HEMOGLOBIN 13.6 G/DL (13.3-17.7); LYMPHOCYTES # (AUTO) 2.1 X 10^3 (1.0-4.0); LYMPHOCYTES % (AUTO) 24 % (12-44); MEAN CORPUSCULAR HEMOGLOBIN 30 PG (25-34); MEAN CORPUSCULAR HGB CONC 33 G/DL (32-36); MEAN CORPUSCULAR VOLUME 92 FL (80-99); MEAN PLATELET VOLUME 9.6 FL (7.4-10.4); MONOCYTES # (AUTO) 0.5 X 10^3 (0.0-1.0); MONOCYTES % (AUTO) 6 % (0-12); NEUTROPHILS # (AUTO) 6.1 X 10^3 (1.8-7.8); NEUTROPHILS % (AUTO) 68 % (42-75); PLATELET COUNT 387 10^3/uL (130-400)
[2020-05-24 13:39] LABS: ALANINE AMINOTRANSFERASE 69 U/L (0-55); ALBUMIN 4.7 GM/DL (3.2-4.5); ALKALINE PHOSPHATASE 67 U/L (40-136); BILIRUBIN,TOTAL 0.3 MG/DL (0.1-1.0); BUN/CREATININE RATIO 14; CALCIUM 10.4 MG/DL (8.5-10.1); CARBON DIOXIDE 25 MMOL/L (21-32); CHLORIDE 103 MMOL/L (98-107); GFR ESTIMATED > 60; GLUCOSE 94 MG/DL (70-105); MAGNESIUM 2.1 MG/DL (1.6-2.4); POTASSIUM 4.1 MMOL/L (3.6-5.0); SODIUM 137 MMOL/L (135-145); TOTAL PROTEIN 7.7 GM/DL (6.4-8.2)
[2020-06-01 11:59] LABS: BASOPHILS % (AUTO) 0 % (0-10); EOSINOPHILS # (AUTO) 0.1 10^3/uL (0.0-0.3); EOSINOPHILS % (AUTO) 1 % (0-10); HEMATOCRIT 40 % (40-54); HEMOGLOBIN 13.1 G/DL (13.3-17.7); LYMPHOCYTES # (AUTO) 2.1 X 10^3 (1.0-4.0); LYMPHOCYTES % (AUTO) 27 % (12-44); MEAN CORPUSCULAR HEMOGLOBIN 29 PG (25-34); MEAN CORPUSCULAR HGB CONC 33 G/DL (32-36); MEAN CORPUSCULAR VOLUME 90 FL (80-99); MEAN PLATELET VOLUME 9.5 FL (7.4-10.4); MONOCYTES # (AUTO) 0.5 X 10^3 (0.0-1.0); MONOCYTES % (AUTO) 7 % (0-12); NEUTROPHILS % (AUTO) 65 % (42-75); PLATELET COUNT 314 10^3/uL (130-400); WHITE BLOOD COUNT 7.7 10^3/uL (4.3-11.0)
[2020-06-01 12:19] LABS: BUN/CREATININE RATIO 13; CALCIUM 10.3 MG/DL (8.5-10.1); CARBON DIOXIDE 28 MMOL/L (21-32); CHLORIDE 99 MMOL/L (98-107); CREATININE SERUM 0.72 MG/DL (0.60-1.30); GFR ESTIMATED > 60; GLUCOSE 106 MG/DL (70-105); MAGNESIUM 1.7 MG/DL (1.6-2.4); PHOSPHORUS 3.6 MG/DL (2.3-4.7); POTASSIUM 3.6 MMOL/L (3.6-5.0); SODIUM 137 MMOL/L (135-145)
[2020-06-07 12:19] LABS: BASOPHILS % (AUTO) 0 % (0-10); EOSINOPHILS # (AUTO) 0.2 10^3/uL (0.0-0.3); EOSINOPHILS % (AUTO) 2 % (0-10); HEMATOCRIT 41 % (40-54); HEMOGLOBIN 13.7 G/DL (13.3-17.7); LYMPHOCYTES # (AUTO) 2.4 X 10^3 (1.0-4.0); LYMPHOCYTES % (AUTO) 26 % (12-44); MEAN CORPUSCULAR HEMOGLOBIN 30 PG (25-34); MEAN CORPUSCULAR HGB CONC 34 G/DL (32-36); MEAN CORPUSCULAR VOLUME 87 FL (80-99); MEAN PLATELET VOLUME 9.8 FL (7.4-10.4); MONOCYTES # (AUTO) 0.5 X 10^3 (0.0-1.0); MONOCYTES % (AUTO) 5 % (0-12); NEUTROPHILS # (AUTO) 6.1 X 10^3 (1.8-7.8); NEUTROPHILS % (AUTO) 67 % (42-75); PLATELET COUNT 323 10^3/uL (130-400); WHITE BLOOD COUNT 9.1 10^3/uL (4.3-11.0)
[2020-06-07 12:38] LABS: BUN/CREATININE RATIO 13; CALCIUM 10.3 MG/DL (8.5-10.1); CARBON DIOXIDE 26 MMOL/L (21-32); CHLORIDE 101 MMOL/L (98-107); CREATININE SERUM 0.69 MG/DL (0.60-1.30); GFR ESTIMATED > 60; GLUCOSE 110 MG/DL (70-105); MAGNESIUM 1.6 MG/DL (1.6-2.4); PHOSPHORUS 3.6 MG/DL (2.3-4.7); POTASSIUM 3.9 MMOL/L (3.6-5.0); SODIUM 139 MMOL/L (135-145)
[2020-06-14 13:28] LABS: BASOPHILS % (AUTO) 0 % (0-10); EOSINOPHILS # (AUTO) 0.3 10^3/uL (0.0-0.3); EOSINOPHILS % (AUTO) 3 % (0-10); HEMATOCRIT 39 % (40-54); HEMOGLOBIN 13.1 G/DL (13.3-17.7); LYMPHOCYTES # (AUTO) 2.7 X 10^3 (1.0-4.0); LYMPHOCYTES % (AUTO) 22 % (12-44); MEAN CORPUSCULAR HEMOGLOBIN 29 PG (25-34); MEAN CORPUSCULAR HGB CONC 33 G/DL (32-36); MEAN CORPUSCULAR VOLUME 88 FL (80-99); MEAN PLATELET VOLUME 9.9 FL (7.4-10.4); MONOCYTES % (AUTO) 8 % (0-12); NEUTROPHILS % (AUTO) 67 % (42-75); PLATELET COUNT 281 10^3/uL (130-400); WHITE BLOOD COUNT 12.1 10^3/uL (4.3-11.0)
[2020-06-14 13:50] LABS: BUN/CREATININE RATIO 15; CALCIUM 9.6 MG/DL (8.5-10.1); CARBON DIOXIDE 27 MMOL/L (21-32); CHLORIDE 102 MMOL/L (98-107); CREATININE SERUM 0.73 MG/DL (0.60-1.30); GFR ESTIMATED > 60; GLUCOSE 84 MG/DL (70-105); MAGNESIUM 1.8 MG/DL (1.6-2.4); PHOSPHORUS 4.4 MG/DL (2.3-4.7); POTASSIUM 4.2 MMOL/L (3.6-5.0); SODIUM 139 MMOL/L (135-145)
[2020-06-21 13:10] LABS: BASOPHILS % (AUTO) 0 % (0-10); EOSINOPHILS # (AUTO) 0.3 10^3/uL (0.0-0.3); EOSINOPHILS % (AUTO) 3 % (0-10); HEMATOCRIT 40 % (40-54); HEMOGLOBIN 13.1 g/dL (13.3-17.7); LYMPHOCYTES # (AUTO) 2.3 10^3/uL (1.0-4.0); LYMPHOCYTES % (AUTO) 24 % (12-44); MEAN CORPUSCULAR HEMOGLOBIN 29 pg (25-34); MEAN CORPUSCULAR HGB CONC 33 g/dL (32-36); MEAN CORPUSCULAR VOLUME 89 fL (80-99); MEAN PLATELET VOLUME 9.8 fL (9.0-12.2); MONOCYTES # (AUTO) 0.8 10^3/uL (0.0-1.0); MONOCYTES % (AUTO) 8 % (0-12); NEUTROPHILS # (AUTO) 6.2 10^3/uL (1.8-7.8); NEUTROPHILS % (AUTO) 65 % (42-75); PLATELET COUNT 290 10^3/uL (130-400); WHITE BLOOD COUNT 9.6 10^3/uL (4.3-11.0)
[2020-06-21 13:30] LABS: ALANINE AMINOTRANSFERASE 96 U/L (0-55); ALBUMIN 4.5 GM/DL (3.2-4.5); ALKALINE PHOSPHATASE 57 U/L (40-136); BILIRUBIN,TOTAL 0.3 MG/DL (0.1-1.0); BUN/CREATININE RATIO 17; CALCIUM 9.8 MG/DL (8.5-10.1); CARBON DIOXIDE 23 MMOL/L (21-32); CHLORIDE 102 MMOL/L (98-107); CREATININE SERUM 0.66 MG/DL (0.60-1.30); GFR ESTIMATED > 60; GLUCOSE 87 MG/DL (70-105); MAGNESIUM 1.8 MG/DL (1.6-2.4); PHOSPHORUS 4.1 MG/DL (2.3-4.7); POTASSIUM 3.9 MMOL/L (3.6-5.0); SODIUM 136 MMOL/L (135-145); TOTAL PROTEIN 7.5 GM/DL (6.4-8.2)
[2020-06-28 13:12] LABS: BASOPHILS % (AUTO) 0 % (0-10); EOSINOPHILS # (AUTO) 0.2 10^3/uL (0.0-0.3); EOSINOPHILS % (AUTO) 2 % (0-10); HEMATOCRIT 40 % (40-54); HEMOGLOBIN 13.3 g/dL (13.3-17.7); LYMPHOCYTES # (AUTO) 3.3 10^3/uL (1.0-4.0); LYMPHOCYTES % (AUTO) 25 % (12-44); MEAN CORPUSCULAR HEMOGLOBIN 29 pg (25-34); MEAN CORPUSCULAR HGB CONC 33 g/dL (32-36); MEAN CORPUSCULAR VOLUME 89 fL (80-99); MEAN PLATELET VOLUME 9.5 fL (9.0-12.2); MONOCYTES # (AUTO) 0.6 10^3/uL (0.0-1.0); MONOCYTES % (AUTO) 5 % (0-12); NEUTROPHILS # (AUTO) 9.1 10^3/uL (1.8-7.8); NEUTROPHILS % (AUTO) 68 % (42-75); PLATELET COUNT 334 10^3/uL (130-400); WHITE BLOOD COUNT 13.4 10^3/uL (4.3-11.0)
[2020-06-28 13:27] LABS: BUN/CREATININE RATIO 20; CALCIUM 9.4 MG/DL (8.5-10.1); CARBON DIOXIDE 23 MMOL/L (21-32); CHLORIDE 101 MMOL/L (98-107); GFR ESTIMATED > 60; GLUCOSE 73 MG/DL (70-105); PHOSPHORUS 5.4 MG/DL (2.3-4.7); POTASSIUM 4.2 MMOL/L (3.6-5.0); SODIUM 137 MMOL/L (135-145)
[2020-07-05 13:07] LABS: BASOPHILS % (AUTO) 0 % (0-10); EOSINOPHILS # (AUTO) 0.1 10^3/uL (0.0-0.3); EOSINOPHILS % (AUTO) 1 % (0-10); HEMATOCRIT 40 % (40-54); HEMOGLOBIN 12.8 g/dL (13.3-17.7); LYMPHOCYTES # (AUTO) 3.2 10^3/uL (1.0-4.0); LYMPHOCYTES % (AUTO) 24 % (12-44); MEAN CORPUSCULAR HEMOGLOBIN 29 pg (25-34); MEAN CORPUSCULAR HGB CONC 32 g/dL (32-36); MEAN CORPUSCULAR VOLUME 90 fL (80-99); MONOCYTES # (AUTO) 0.5 10^3/uL (0.0-1.0); MONOCYTES % (AUTO) 3 % (0-12); NEUTROPHILS # (AUTO) 9.7 10^3/uL (1.8-7.8); NEUTROPHILS % (AUTO) 72 % (42-75); PLATELET COUNT 299 10^3/uL (130-400); WHITE BLOOD COUNT 13.5 10^3/uL (4.3-11.0)
[2020-07-05 13:31] LABS: BUN/CREATININE RATIO 17; CALCIUM 9.2 MG/DL (8.5-10.1); CARBON DIOXIDE 24 MMOL/L (21-32); CHLORIDE 101 MMOL/L (98-107); CREATININE SERUM 0.69 MG/DL (0.60-1.30); GFR ESTIMATED > 60; GLUCOSE 97 MG/DL (70-105); MAGNESIUM 1.8 MG/DL (1.6-2.4); PHOSPHORUS 5.8 MG/DL (2.3-4.7); SODIUM 139 MMOL/L (135-145)
[2020-07-12 13:34] LABS: BASOPHILS % (AUTO) 0 % (0-10); EOSINOPHILS # (AUTO) 0.1 10^3/uL (0.0-0.3); EOSINOPHILS % (AUTO) 1 % (0-10); HEMATOCRIT 41 % (40-54); HEMOGLOBIN 13.4 g/dL (13.3-17.7); LYMPHOCYTES % (AUTO) 29 % (12-44); MEAN CORPUSCULAR HEMOGLOBIN 29 pg (25-34); MEAN CORPUSCULAR HGB CONC 33 g/dL (32-36); MEAN CORPUSCULAR VOLUME 89 fL (80-99); MEAN PLATELET VOLUME 9.1 fL (9.0-12.2); MONOCYTES # (AUTO) 0.6 10^3/uL (0.0-1.0); MONOCYTES % (AUTO) 6 % (0-12); NEUTROPHILS # (AUTO) 6.5 10^3/uL (1.8-7.8); NEUTROPHILS % (AUTO) 64 % (42-75); PLATELET COUNT 299 10^3/uL (130-400); WHITE BLOOD COUNT 10.2 10^3/uL (4.3-11.0)
[2020-07-12 13:48] LABS: BUN/CREATININE RATIO 21; CALCIUM 9.9 MG/DL (8.5-10.1); CARBON DIOXIDE 25 MMOL/L (21-32); CHLORIDE 103 MMOL/L (98-107); CREATININE SERUM 0.71 MG/DL (0.60-1.30); GFR ESTIMATED > 60; GLUCOSE 81 MG/DL (70-105); PHOSPHORUS 6.1 MG/DL (2.3-4.7); SODIUM 139 MMOL/L (135-145)
[~2020-07-19] VITALS: Ht 185.4 cm; Wt 110.2 kg
[~2020-07-19 13:33] MED LIST changes: +ALTEPLASE 2 MG (CATHFLO) CANCER CENTER IV ONE; +ARSENIC TRIOXIDE IV SCH; +HYDR-4226 PO; +MAGNESIUM SULFATE (CANCER CTR) 1 GM in NS (IVPB) CANCER CENTER 50 ML IV NR; +NS IV 1000 ML (CANCER CTR) IV SCH; +NS IV 500 ML (CANCER CENTER) 500 ML ONE; +NS IV SCH; +POTASSIUM CHL INJ (CANCER CTR) 20 MEQ in NS (IVPB) CANCER CENTER 100 ML IV ONE
[2020-07-19 13:39] LABS: BASOPHILS % (AUTO) 0 % (0-10); EOSINOPHILS # (AUTO) 0.1 10^3/uL (0.0-0.3); EOSINOPHILS % (AUTO) 1 % (0-10); HEMATOCRIT 43 % (40-54); HEMOGLOBIN 13.8 g/dL (13.3-17.7); LYMPHOCYTES # (AUTO) 3.2 10^3/uL (1.0-4.0); LYMPHOCYTES % (AUTO) 34 % (12-44); MEAN CORPUSCULAR HEMOGLOBIN 29 pg (25-34); MEAN CORPUSCULAR HGB CONC 33 g/dL (32-36); MEAN CORPUSCULAR VOLUME 89 fL (80-99); MONOCYTES # (AUTO) 0.6 10^3/uL (0.0-1.0); MONOCYTES % (AUTO) 6 % (0-12); NEUTROPHILS # (AUTO) 5.3 10^3/uL (1.8-7.8); NEUTROPHILS % (AUTO) 58 % (42-75); PLATELET COUNT 328 10^3/uL (130-400); WHITE BLOOD COUNT 9.2 10^3/uL (4.3-11.0)
[2020-07-19 14:06] LABS: ALANINE AMINOTRANSFERASE 55 U/L (0-55); ALBUMIN 4.4 GM/DL (3.2-4.5); ALKALINE PHOSPHATASE 61 U/L (40-136); BILIRUBIN,TOTAL 0.5 MG/DL (0.1-1.0); BUN/CREATININE RATIO 16; CALCIUM 9.9 MG/DL (8.5-10.1); CARBON DIOXIDE 27 MMOL/L (21-32); CHLORIDE 102 MMOL/L (98-107); CREATININE SERUM 0.74 MG/DL (0.60-1.30); GFR ESTIMATED > 60; GLUCOSE 75 MG/DL (70-105); MAGNESIUM 2.4 MG/DL (1.6-2.4); PHOSPHORUS 5.3 MG/DL (2.3-4.7); POTASSIUM 4.2 MMOL/L (3.6-5.0); SODIUM 140 MMOL/L (135-145); TOTAL PROTEIN 7.1 GM/DL (6.4-8.2)
== END 2020-07-22 | disposition home or self-care (01) ==
LOC: ONC 13:33
PROVIDERS: ATTEND Internal Medicine Hematology & Oncology
DX: D61.818 Other pancytopenia (principal)
CPT/HCPCS: 36591; 80048; 80053; 81000; 82306; 83735; 84100; 85025; 93005; 96366; 96367; 96374; 96375; 96413; 99213

== ENCOUNTER 2020-08-21 10:55 | Emergency (ER) | payer MEDICAID ==
[~2020-08-21] VITALS: Ht 185 cm; Wt 116.0 kg
[~2020-08-21 10:55] MED LIST changes: -ALTEPLASE 2 MG (CATHFLO) CANCER CENTER IV ONE; -ARSENIC TRIOXIDE IV SCH; -MAGNESIUM SULFATE (CANCER CTR) 1 GM in NS (IVPB) CANCER CENTER 50 ML IV NR; -NS IV 1000 ML (CANCER CTR) IV SCH; -NS IV 500 ML (CANCER CENTER) 500 ML ONE; -NS IV SCH; -POTASSIUM CHL INJ (CANCER CTR) 20 MEQ in NS (IVPB) CANCER CENTER 100 ML IV ONE
[2020-08-21] MEDS ORDERED: LACTATED RINGERS 1,000 ML IV ONE (11:47)
[2020-08-21] MEDS ORDERED: ACETAMINOPHEN 500 MG TAB (TYLENOL) PO STA (11:47)
[2020-08-21 12:10] LABS: BASOPHILS % (AUTO) 1 % (0-10); EOSINOPHILS # (AUTO) 0.1 10^3/uL (0.0-0.3); EOSINOPHILS % (AUTO) 2 % (0-10); HEMATOCRIT 41 % (40-54); HEMOGLOBIN 13.6 g/dL (13.3-17.7); LYMPHOCYTES % (AUTO) 24 % (12-44); MEAN CORPUSCULAR HEMOGLOBIN 29 pg (25-34); MEAN CORPUSCULAR HGB CONC 33 g/dL (32-36); MEAN CORPUSCULAR VOLUME 89 fL (80-99); MEAN PLATELET VOLUME 9.7 fL (9.0-12.2); MONOCYTES # (AUTO) 0.8 10^3/uL (0.0-1.0); MONOCYTES % (AUTO) 9 % (0-12); NEUTROPHILS # (AUTO) 5.5 10^3/uL (1.8-7.8); NEUTROPHILS % (AUTO) 64 % (42-75); PLATELET COUNT 288 10^3/uL (130-400); WHITE BLOOD COUNT 8.5 10^3/uL (4.3-11.0)
[2020-08-21 12:16] LABS: ALBUMIN 4.5 GM/DL (3.2-4.5); CHLORIDE 99 MMOL/L (98-107); POTASSIUM 4.1 MMOL/L (3.6-5.0); SODIUM 135 MMOL/L (135-145)
[2020-08-21 12:17] LABS: CALCIUM 9.3 MG/DL (8.5-10.1)
[2020-08-21 12:18] LABS: GLUCOSE 84 MG/DL (70-105)
[2020-08-21 12:19] LABS: TOTAL PROTEIN 7.4 GM/DL (6.4-8.2)
[2020-08-21 12:20] LABS: BILIRUBIN,TOTAL 0.4 MG/DL (0.1-1.0); CARBON DIOXIDE 23 MMOL/L (21-32)
[2020-08-21 12:22] LABS: ALKALINE PHOSPHATASE 58 U/L (40-136); CREATININE SERUM 0.77 MG/DL (0.60-1.30); GFR ESTIMATED > 60
[2020-08-21 12:23] LABS: BUN/CREATININE RATIO 13
[2020-08-21 12:25] LABS: ALANINE AMINOTRANSFERASE 65 U/L (0-55)
[2020-08-21 12:26] LABS: INR 0.9 (0.8-1.4); PROTHROMBIN TIME PATIENT 12.8 SEC (12.2-14.7)
--- NOTE | 2020-08-21 12:59 | ED Cough/URI ---
General Chief Complaint: Cough/Cold/Flu Symptoms Stated Complaint: COUGH,FEVER,SOA,HEADACHE Nursing Triage Note: PT PRESENTS TO ED FOR COUGH AND FEVER OF 101.6 THAT STARTED YESTERDAY. PT AMB TO ROOM 05. Sepsis Screen: Possible Severe Sepsis Risk Source: patient Exam Limitations: no limitations History of Present Illness Date Seen by Provider: Aug 21, 2020 Time Seen by Provider: 11:54 Initial Comments Here from home with report of fever and not feeling well since yesterday. Notes that his grandmother has not been feeling well for the last several days. No contact outside of the house itself or at the cancer center or at the supermarket. Has not lost taste or smell. Illness complicated by the fact that he is currently on maintenance treatment for leukemia. Denies nausea, vomiting or diarrhea. Reports that he is eating and drinking okay currently but just feels fatigued. Timing/Duration: yesterday, getting worse Severity/Quality: mild, dry cough Prior Episodes/Possible Cause: no prior episodes Modifying Factors: Improves With Rest Associated Symptoms: cough, fever/chills, muscle aches, shortness of breath, sore throat Allergies and Home Medications Allergies Coded Allergies: No Known Drug Allergies (Unverified , 03/22/20) Home Medications Amoxicillin/Potassium Clav 1 Each Tablet, 1 EACH PO Q12H, (Reported) Calcium Acetate 667 Mg Tablet, 1,334 MG PO TID, (Reported) Ergocalciferol (Vitamin D2) 1,250 Mcg Capsule, 1,250 MCG PO WEEK, (Reported) Hydrocodone/Acetaminophen 1 Each Tablet, 1 TAB PO Q6H Prescribed by: ANIYA SANDOVAL on 05/28/20 1031 Ondansetron HCl 8 Mg Tablet, 8 MG PO Q8H PRN for NAUSEA/VOMITING, (Reported) Potassium Chloride 20 Meq Tab.er.prt, 20 MEQ PO BID, (Reported) Tretinoin 10 Mg Capsule, 50 MG PO BID, (Reported) Patient Home Medication List Home Medication List Reviewed: Yes Review of Systems Review of Systems Constitutional: see HPI; No chills; fever EENTM: see HPI Respiratory: see HPI Cardiovascular: no symptoms reported Gastrointestinal: no symptoms reported Genitourinary: no symptoms reported Musculoskeletal: see HPI Skin: no symptoms reported Psychiatric/Neurological: No Symptoms Reported Past Qsuabis-Ujrirw-Uwagqu Hx Past Med/Social Hx: Reviewed Nursing Past Med/Soc Hx Patient Social History Alcohol Use: Denies Use Recreational Drug Use: No Smoking Status: Former Smoker Type Used: Cigarettes Recent Foreign Travel: No Contact w/Someone Who Travel: No Recent Infectious Disease Expo: No Recent Hopitalizations: Yes (02/2020 for head injury) Immunizations Up To Date Tetanus Booster (TDap): Unknown Seasonal Allergies Seasonal Allergies: Yes Past Medical History Surgeries: Yes Tonsillectomy Respiratory: Yes Asthma Currently Using CPAP: No Currently Using BIPAP: No Cardiac: No Neurological: No Reproductive Disorders: No Genitourinary: No Gastrointestinal: No Musculoskeletal: No Endocrine: No HEENT: No Tonsilitis Cancer: Yes Leukemia Did You Recieve Any Treatments: Yes What Type of Treatment Did You: Chemotherapy PT SEES DR. KAUFMAN. Psychosocial: No Integumentary: No Blood Disorders: No Adverse Reaction/Blood Tranf: No Family Medical History Reviewed Nursing Family Hx FH: anemia 19 MOTHER G8 SISTER grandmother FH: diverticulitis grandmother No Pertinent Family Hx Physical Exam Vital Signs - First Documented Capillary Refill : Less Than 3 Seconds Height: '" Weight: lbs. oz. kg; 33.00 BMI Method: General Appearance: WD/WN, no apparent distress Neck: full range of motion, supple Respiratory: lungs clear, normal breath sounds Cardiovascular: no murmur, tachycardia Gastrointestinal: non tender, soft Extremities: non-tender, normal inspection Neurologic/Psychiatric: alert, oriented x 3 Skin: normal color, warm/dry Focused Exam Lactate Level 08/21/20 11:50: Lactic Acid Level 1.75 Lactic Acid Level Laboratory Tests Test 08/21/20 11:50 Lactic Acid Level 1.75 MMOL/L (0.50-2.00) Progress/Results/Core Measures Suspected Sepsis Recent Fever Within 48 Hours: Yes Infection Criteria Present: Suspected New Infection New/Unexplained Altered Menta: No Sepsis Screen: Possible Severe Sepsis Risk SIRS Temperature: Pulse: 136 Respiratory Rate: 20 Laboratory Tests 08/21/20 11:50: White Blood Count 8.5 Blood Pressure 112 /72 Mean: 85 08/21/20 11:50: Lactic Acid Level 1.75 Laboratory Tests 08/21/20 11:50: Creatinine 0.77, INR Comment 0.9, Platelet Count 288, Total Bilirubin 0.4 Results/Orders Lab Results Laboratory Tests Test 08/21/20 11:34 08/21/20 11:50 Range/Units Coronavirus 2019 (MARCY) Positive H Negative White Blood Count 8.5 4.3-11.0 10^3/uL Red Blood Count 4.65 4.30-5.52 10^6/uL Hemoglobin 13.6 13.3-17.7 g/dL Hematocrit 41 40-54 % Mean Corpuscular Volume 89 80-99 fL Mean Corpuscular Hemoglobin 29 25-34 pg Mean Corpuscular Hemoglobin Concent 33 32-36 g/dL Red Cell Distribution Width 14.9 H 10.0-14.5 % Platelet Count 288 130-400 10^3/uL Mean Platelet Volume 9.7 9.0-12.2 fL Immature Granulocyte % (Auto) 1 % Neutrophils (%) (Auto) 64 42-75 % Lymphocytes (%) (Auto) 24 12-44 % Monocytes (%) (Auto) 9 0-12 % Eosinophils (%) (Auto) 2 0-10 % Basophils (%) (Auto) 1 0-10 % Neutrophils # (Auto) 5.5 1.8-7.8 10^3/uL Lymphocytes # (Auto) 2.0 1.0-4.0 10^3/uL Monocytes # (Auto) 0.8 0.0-1.0 10^3/uL Eosinophils # (Auto) 0.1 0.0-0.3 10^3/uL Basophils # (Auto) 0.0 0.0-0.1 10^3/uL Immature Granulocyte # (Auto) 0.1 0.0-0.1 10^3/uL Prothrombin Time 12.8 12.2-14.7 SEC INR Comment 0.9 0.8-1.4 Activated Partial Thromboplast Time 31 24-35 SEC Sodium Level 135 135-145 MMOL/L Potassium Level 4.1 3.6-5.0 MMOL/L Chloride Level 99 98-107 MMOL/L Carbon Dioxide Level 23 21-32 MMOL/L Anion Gap 13 5-14 MMOL/L Blood Urea Nitrogen 10 7-18 MG/DL Creatinine 0.77 0.60-1.30 MG/DL Estimat Glomerular Filtration Rate > 60 BUN/Creatinine Ratio 13 Glucose Level 84 70-105 MG/DL Lactic Acid Level 1.75 0.50-2.00 MMOL/L Calcium Level 9.3 8.5-10.1 MG/DL Corrected Calcium 8.9 8.5-10.1 MG/DL Total Bilirubin 0.4 0.1-1.0 MG/DL Aspartate Amino Transf (AST/SGOT) 49 H 5-34 U/L Alanine Aminotransferase (ALT/SGPT) 65 H 0-55 U/L Alkaline Phosphatase 58 40-136 U/L Total Protein 7.4 6.4-8.2 GM/DL Albumin 4.5 3.2-4.5 GM/DL Micro Results Microbiology 08/21/20 Influenza Types A,B Antigen (ADELITA) - Final, Complete My Orders Orders - SANDRA HAMMOND MD Influenza A And B Antigens (08/21/20 11:47) Covid 19 Inhouse Test (08/21/20 11:47) Cbc With Automated Diff (08/21/20 11:47) Comprehensive Metabolic Panel (08/21/20 11:47) Blood Culture (08/21/20 11:47) Sputum Culture (08/21/20 11:47) Urinalysis (08/21/20 11:47) Urine Culture (08/21/20 11:47) Protime With Inr (08/21/20 11:47) Partial Thromboplastin Time (08/21/20 11:47) Chest 1 View, Ap/Pa Only (08/21/20 11:47) Ed Iv/Invasive Line Start (08/21/20 11:47) Vital Signs Adult Sepsis Patie Q15M (08/21/20 11:47) O2 (08/21/20 11:47) Remove Rings In Anticipation O (08/21/20 11:47) Lactic Acid Analyzer (08/21/20 11:47) Lactated Ringers (Lr 1000 Ml Iv Solution (08/21/20 11:47) Acetaminophen Tablet (Tylenol Tablet) (08/21/20 11:47) Medications Given in ED Current Medications Medications Dose Ordered Sig/Yoseph Route Start Time Stop Time Status Last Admin Dose Admin Lactated Ringer's 1,000 ml @ 0 mls/hr Q0M ONCE IV 08/21/20 11:47 08/21/20 11:54 DC 08/21/20 12:19 1,000 MLS/HR Vital Signs/I&O 08/21/20 08/21/20 08/21/20 11:20 11:20 11:20 Temp 37.6 37.6 Pulse 136 136 Resp 20 20 B/P (MAP) 112/72 112/72 (85) Pulse Ox 96 O2 Delivery Room Air Room Air Room Air O2 Flow Rate 96.00 Capillary Refill : Less Than 3 Seconds Blood Pressure Mean: 85 Progress Note : Progress Note Seen and evaluated. Given patient's past medical history, we will initiate sepsis work-up and include COVID-19 evaluation and influenza screen. Patient's oncologist, Dr. Soto did call prior to patient's arrival. I will call him with results. 1301: Patient is positive for COVID-19. I did review with him the results and expected course as well as isolation requirements. I also spoke with his grandmother on the phone with the patient as she is also sick to discuss the same things. Precautions were given regarding O2 saturations and monitoring and patient understands to return if oxygen saturations are declining while resting to the lower 90s or below. Current resting O2 saturation is 96%. All of this was discussed with Dr. Soto as well. Patient is to call the cancer center this week coming up. He will be on hold for his maintenance therapy but they will follow with him. Pending x-ray but otherwise labs look okay. Monitor patient. 1325: Chest x-ray negative. Discharged home with return precautions. Patient verbalized understanding of instructions and agreement with plan. Diagnostic Imaging Diagonstic Imaging: Xray Plain Films/CT/US/NM/MRI: chest Comments NAME: RACHEL TAPIA M [facility] REC#: [id number] PT STATUS: REG ER : 2000 PHYSICIAN: SANDRA HAMMOND MD ADMIT DATE: 08/21/20/ER Draft Date of Exam:08/21/20 CHEST 1 VIEW, AP/PA ONLY EXAMINATION: Chest 1 view HISTORY: sepsis COMPARISON: 03/22/2020 FINDINGS: Right port catheter tip terminates in the superior vena cava. The lungs are clear. No edema. No pneumonia. No pleural effusion. No pneumothorax. Heart is normal in size. IMPRESSION: 1. Clear lungs. Dictated on workstation # [id number] Dict: 08/21/20 1318 Trans: 08/21/20 1321 ACB [id number] Interpreted by: MCKENNA DEVI MD Electronically signed by: Departure Impression Primary Impression: COVID-19 virus infection Disposition: 01 HOME, SELF-CARE Condition: Stable Departure-Patient Inst. Decision time for Depature: 13:05 Referrals: FELECIA PRITCHETT MD (PCP/Family) Primary Care Physician Patient Instructions: Coronavirus Disease 2019 (COVID-19) (DC) Add. Discharge Instructions: All discharge instructions reviewed with patient and/or family. Voiced understanding. Drink plenty of fluids and get plenty of rest. Your COVID-19 test was positive. You will need to remain in isolation for at least 10 days with day 0 08/20/2020 and you will count for 10 days from there. You must be symptom improving and fever free in the last 3 days without fever reducing medicines to be out of isolation after the 10th day. The health department should contact you to direct timeframe as well. You need to notify your close contacts so that they may quarantine and this will include anybody that you are around for 10 minutes within 6 feet 2 days prior to onset of symptoms. Monitor your oxygen saturation while resting. Currently it is 96 percent. If that starts to decline to the low 90s and certainly below 90, please return immediately to the emergency department for further evaluation. You may take ibuprofen 600 mg every 8 hours as needed for fever or pain. You may take Tylenol/acetaminophen 1000 mg every 8 hours as needed for fever or pain. Return for worse pain, fever, vomiting, weakness, breathing problems or other concerns as needed. Copy Copies To 1: JOSE JARRELL TIMOTHY D MD Aug 21, 2020 12:58
--- NOTE | 2020-08-21 13:21 | Diagnostic Imaging Report ---
EXAMINATION: Chest 1 view HISTORY: sepsis COMPARISON: 03/22/2020 FINDINGS: Right port catheter tip terminates in the superior vena cava. The lungs are clear. No edema. No pneumonia. No pleural effusion. No pneumothorax. Heart is normal in size. IMPRESSION: 1. Clear lungs. Dictated by: Dictated on workstation # [id number]
[2020-08-21 13:32] VITALS: BP 127/90
== END 2020-08-21 13:33 | disposition home or self-care (01) ==
LOC: EDUNIT# 10:55 → ER 10:56
DX: U07.1 COVID-19 (principal); Z85.6 Personal history of leukemia; Z87.891 Personal history of nicotine dependence
CPT/HCPCS: 36415; 71045; 80053; 83605; 85025; 85610; 85730; 87040; 87070; 87205; 87635; 87804

== ENCOUNTER 2020-09-20 13:07 | Outpatient (RCR) | payer MEDICAID ==
[2020-07-26 13:22] LABS: BASOPHILS % (AUTO) 0 % (0-10); EOSINOPHILS # (AUTO) 0.1 10^3/uL (0.0-0.3); EOSINOPHILS % (AUTO) 1 % (0-10); HEMATOCRIT 44 % (40-54); HEMOGLOBIN 14.4 g/dL (13.3-17.7); LYMPHOCYTES # (AUTO) 2.8 10^3/uL (1.0-4.0); LYMPHOCYTES % (AUTO) 35 % (12-44); MEAN CORPUSCULAR HEMOGLOBIN 29 pg (25-34); MEAN CORPUSCULAR HGB CONC 33 g/dL (32-36); MEAN CORPUSCULAR VOLUME 88 fL (80-99); MEAN PLATELET VOLUME 9.2 fL (9.0-12.2); MONOCYTES # (AUTO) 0.4 10^3/uL (0.0-1.0); MONOCYTES % (AUTO) 5 % (0-12); NEUTROPHILS # (AUTO) 4.7 10^3/uL (1.8-7.8); NEUTROPHILS % (AUTO) 59 % (42-75); PLATELET COUNT 280 10^3/uL (130-400)
[2020-07-26 13:43] LABS: BUN/CREATININE RATIO 10; CALCIUM 10.4 MG/DL (8.5-10.1); CARBON DIOXIDE 28 MMOL/L (21-32); CHLORIDE 101 MMOL/L (98-107); CREATININE SERUM 0.84 MG/DL (0.60-1.30); GFR ESTIMATED > 60; GLUCOSE 100 MG/DL (70-105); MAGNESIUM 1.8 MG/DL (1.6-2.4); POTASSIUM 3.9 MMOL/L (3.6-5.0); SODIUM 142 MMOL/L (135-145)
[2020-08-02 13:13] LABS: BASOPHILS % (AUTO) 0 % (0-10); EOSINOPHILS # (AUTO) 0.1 10^3/uL (0.0-0.3); EOSINOPHILS % (AUTO) 1 % (0-10); HEMATOCRIT 42 % (40-54); HEMOGLOBIN 13.9 g/dL (13.3-17.7); LYMPHOCYTES % (AUTO) 37 % (12-44); MEAN CORPUSCULAR HEMOGLOBIN 29 pg (25-34); MEAN CORPUSCULAR HGB CONC 33 g/dL (32-36); MEAN CORPUSCULAR VOLUME 88 fL (80-99); MEAN PLATELET VOLUME 9.3 fL (9.0-12.2); MONOCYTES # (AUTO) 0.4 10^3/uL (0.0-1.0); MONOCYTES % (AUTO) 6 % (0-12); NEUTROPHILS # (AUTO) 4.5 10^3/uL (1.8-7.8); NEUTROPHILS % (AUTO) 56 % (42-75); PLATELET COUNT 262 10^3/uL (130-400); WHITE BLOOD COUNT 8.1 10^3/uL (4.3-11.0)
[2020-08-02 13:23] LABS: CHLORIDE 99 MMOL/L (98-107); SODIUM 138 MMOL/L (135-145)
[2020-08-02 13:25] LABS: CALCIUM 10.5 MG/DL (8.5-10.1); GLUCOSE 95 MG/DL (70-105)
[2020-08-02 13:27] LABS: CARBON DIOXIDE 26 MMOL/L (21-32)
[2020-08-02 13:29] LABS: CREATININE SERUM 0.73 MG/DL (0.60-1.30); GFR ESTIMATED > 60; PHOSPHORUS 4.5 MG/DL (2.3-4.7)
[2020-08-02 13:30] LABS: BUN/CREATININE RATIO 11
[2020-08-02 13:31] LABS: MAGNESIUM 1.9 MG/DL (1.6-2.4)
[2020-08-09 12:55] LABS: BASOPHILS % (AUTO) 1 % (0-10); EOSINOPHILS # (AUTO) 0.2 10^3/uL (0.0-0.3); EOSINOPHILS % (AUTO) 3 % (0-10); HEMATOCRIT 41 % (40-54); HEMOGLOBIN 13.7 g/dL (13.3-17.7); LYMPHOCYTES # (AUTO) 2.6 10^3/uL (1.0-4.0); LYMPHOCYTES % (AUTO) 31 % (12-44); MEAN CORPUSCULAR HEMOGLOBIN 30 pg (25-34); MEAN CORPUSCULAR HGB CONC 33 g/dL (32-36); MEAN CORPUSCULAR VOLUME 89 fL (80-99); MEAN PLATELET VOLUME 9.8 fL (9.0-12.2); MONOCYTES # (AUTO) 0.7 10^3/uL (0.0-1.0); MONOCYTES % (AUTO) 8 % (0-12); NEUTROPHILS # (AUTO) 4.9 10^3/uL (1.8-7.8); NEUTROPHILS % (AUTO) 57 % (42-75); PLATELET COUNT 317 10^3/uL (130-400); WHITE BLOOD COUNT 8.6 10^3/uL (4.3-11.0)
[2020-08-09 13:14] LABS: BUN/CREATININE RATIO 10; CALCIUM 9.7 MG/DL (8.5-10.1); CARBON DIOXIDE 23 MMOL/L (21-32); CHLORIDE 104 MMOL/L (98-107); GFR ESTIMATED > 60; GLUCOSE 118 MG/DL (70-105); MAGNESIUM 1.8 MG/DL (1.6-2.4); PHOSPHORUS 3.2 MG/DL (2.3-4.7); POTASSIUM 4.1 MMOL/L (3.6-5.0); SODIUM 139 MMOL/L (135-145)
[2020-08-16 14:01] LABS: BASOPHILS % (AUTO) 0 % (0-10); EOSINOPHILS # (AUTO) 0.1 10^3/uL (0.0-0.3); EOSINOPHILS % (AUTO) 2 % (0-10); HEMATOCRIT 39 % (40-54); HEMOGLOBIN 13.1 g/dL (13.3-17.7); LYMPHOCYTES # (AUTO) 2.6 10^3/uL (1.0-4.0); LYMPHOCYTES % (AUTO) 31 % (12-44); MEAN CORPUSCULAR HEMOGLOBIN 29 pg (25-34); MEAN CORPUSCULAR HGB CONC 33 g/dL (32-36); MEAN CORPUSCULAR VOLUME 88 fL (80-99); MEAN PLATELET VOLUME 10.1 fL (9.0-12.2); MONOCYTES # (AUTO) 0.6 10^3/uL (0.0-1.0); MONOCYTES % (AUTO) 7 % (0-12); NEUTROPHILS % (AUTO) 60 % (42-75); PLATELET COUNT 277 10^3/uL (130-400); WHITE BLOOD COUNT 8.4 10^3/uL (4.3-11.0)
[2020-08-16 14:16] LABS: ALANINE AMINOTRANSFERASE 99 U/L (0-55); ALBUMIN 4.5 GM/DL (3.2-4.5); ALKALINE PHOSPHATASE 60 U/L (40-136); BILIRUBIN,TOTAL 0.5 MG/DL (0.1-1.0); BUN/CREATININE RATIO 13; CALCIUM 9.7 MG/DL (8.5-10.1); CARBON DIOXIDE 25 MMOL/L (21-32); CHLORIDE 105 MMOL/L (98-107); CREATININE SERUM 0.68 MG/DL (0.60-1.30); GFR ESTIMATED > 60; GLUCOSE 89 MG/DL (70-105); MAGNESIUM 1.8 MG/DL (1.6-2.4); PHOSPHORUS 4.2 MG/DL (2.3-4.7); SODIUM 141 MMOL/L (135-145); TOTAL PROTEIN 7.4 GM/DL (6.4-8.2)
[2020-09-01 13:14] LABS: BASOPHILS % (AUTO) 0 % (0-10); EOSINOPHILS # (AUTO) 0.2 10^3/uL (0.0-0.3); EOSINOPHILS % (AUTO) 2 % (0-10); HEMATOCRIT 41 % (40-54); HEMOGLOBIN 13.4 g/dL (13.3-17.7); LYMPHOCYTES # (AUTO) 2.6 10^3/uL (1.0-4.0); LYMPHOCYTES % (AUTO) 30 % (12-44); MEAN CORPUSCULAR HEMOGLOBIN 29 pg (25-34); MEAN CORPUSCULAR HGB CONC 32 g/dL (32-36); MEAN CORPUSCULAR VOLUME 90 fL (80-99); MEAN PLATELET VOLUME 9.7 fL (9.0-12.2); MONOCYTES # (AUTO) 0.5 10^3/uL (0.0-1.0); MONOCYTES % (AUTO) 6 % (0-12); NEUTROPHILS # (AUTO) 5.2 10^3/uL (1.8-7.8); NEUTROPHILS % (AUTO) 61 % (42-75); PLATELET COUNT 339 10^3/uL (130-400); WHITE BLOOD COUNT 8.6 10^3/uL (4.3-11.0)
[2020-09-01 13:39] LABS: ALANINE AMINOTRANSFERASE 205 U/L (0-55); ALBUMIN 4.5 GM/DL (3.2-4.5); ALKALINE PHOSPHATASE 58 U/L (40-136); BILIRUBIN,TOTAL 0.5 MG/DL (0.1-1.0); BUN/CREATININE RATIO 11; CALCIUM 9.9 MG/DL (8.5-10.1); CARBON DIOXIDE 26 MMOL/L (21-32); CHLORIDE 107 MMOL/L (98-107); CREATININE SERUM 0.71 MG/DL (0.60-1.30); GFR ESTIMATED > 60; GLUCOSE 108 MG/DL (70-105); MAGNESIUM 1.9 MG/DL (1.6-2.4); PHOSPHORUS 3.4 MG/DL (2.3-4.7); POTASSIUM 4.2 MMOL/L (3.6-5.0); SODIUM 142 MMOL/L (135-145); TOTAL PROTEIN 7.6 GM/DL (6.4-8.2)
[2020-09-06 13:08] LABS: LYMPHOCYTES # (AUTO) 2.7 10^3/uL (1.0-4.0); MEAN CORPUSCULAR HGB CONC 33 g/dL (32-36); MEAN PLATELET VOLUME 10.4 fL (9.0-12.2)
[2020-09-06 13:10] LABS: BASOPHILS % (AUTO) 0 % (0-10); EOSINOPHILS # (AUTO) 0.1 10^3/uL (0.0-0.3); EOSINOPHILS % (AUTO) 1 % (0-10); HEMATOCRIT 43 % (40-54); HEMOGLOBIN 14.1 g/dL (13.3-17.7); LYMPHOCYTES % (AUTO) 30 % (12-44); MEAN CORPUSCULAR HEMOGLOBIN 29 pg (25-34); MEAN CORPUSCULAR VOLUME 89 fL (80-99); MONOCYTES # (AUTO) 0.8 10^3/uL (0.0-1.0); MONOCYTES % (AUTO) 9 % (0-12); NEUTROPHILS # (AUTO) 5.3 10^3/uL (1.8-7.8); NEUTROPHILS % (AUTO) 59 % (42-75); PLATELET COUNT 208 10^3/uL (130-400)
[2020-09-06 13:25] LABS: BUN/CREATININE RATIO 15; CALCIUM 9.4 MG/DL (8.5-10.1); CARBON DIOXIDE 24 MMOL/L (21-32); CHLORIDE 103 MMOL/L (98-107); CREATININE SERUM 0.75 MG/DL (0.60-1.30); GFR ESTIMATED > 60; GLUCOSE 77 MG/DL (70-105); MAGNESIUM 2.2 MG/DL (1.6-2.4); SODIUM 138 MMOL/L (135-145)
[2020-09-06 13:59] LABS: ALANINE AMINOTRANSFERASE 107 U/L (0-55); ALBUMIN 4.4 GM/DL (3.2-4.5); ALKALINE PHOSPHATASE 59 U/L (40-136); BILIRUBIN,TOTAL 0.6 MG/DL (0.1-1.0); TOTAL PROTEIN 7.2 GM/DL (6.4-8.2)
[2020-09-13 13:40] LABS: BASOPHILS % (AUTO) 0 % (0-10); EOSINOPHILS # (AUTO) 0.1 10^3/uL (0.0-0.3); EOSINOPHILS % (AUTO) 1 % (0-10); HEMATOCRIT 42 % (40-54); HEMOGLOBIN 13.6 g/dL (13.3-17.7); LYMPHOCYTES # (AUTO) 2.8 10^3/uL (1.0-4.0); LYMPHOCYTES % (AUTO) 26 % (12-44); MEAN CORPUSCULAR HEMOGLOBIN 30 pg (25-34); MEAN CORPUSCULAR HGB CONC 32 g/dL (32-36); MEAN CORPUSCULAR VOLUME 92 fL (80-99); MEAN PLATELET VOLUME 9.3 fL (9.0-12.2); MONOCYTES # (AUTO) 0.7 10^3/uL (0.0-1.0); MONOCYTES % (AUTO) 6 % (0-12); NEUTROPHILS # (AUTO) 7.1 10^3/uL (1.8-7.8); NEUTROPHILS % (AUTO) 66 % (42-75); PLATELET COUNT 335 10^3/uL (130-400); WHITE BLOOD COUNT 10.8 10^3/uL (4.3-11.0)
[2020-09-13 13:57] LABS: ALANINE AMINOTRANSFERASE 72 U/L (0-55); ALBUMIN 4.3 GM/DL (3.2-4.5); ALKALINE PHOSPHATASE 59 U/L (40-136); BILIRUBIN,TOTAL 0.6 MG/DL (0.1-1.0); BUN/CREATININE RATIO 16; CALCIUM 9.6 MG/DL (8.5-10.1); CARBON DIOXIDE 29 MMOL/L (21-32); CHLORIDE 103 MMOL/L (98-107); GFR ESTIMATED > 60; GLUCOSE 88 MG/DL (70-105); MAGNESIUM 2.1 MG/DL (1.6-2.4); PHOSPHORUS 5.8 MG/DL (2.3-4.7); POTASSIUM 4.1 MMOL/L (3.6-5.0); SODIUM 138 MMOL/L (135-145); TOTAL PROTEIN 6.8 GM/DL (6.4-8.2)
[~2020-09-20 13:07] MED LIST changes: +ARSENIC TRIOXIDE IV SCH; +NS IV 1000 ML (CANCER CTR) IV SCH; +NS IV SCH
[2020-09-20 13:32] LABS: BASOPHILS % (AUTO) 0 % (0-10); EOSINOPHILS # (AUTO) 0.1 10^3/uL (0.0-0.3); EOSINOPHILS % (AUTO) 1 % (0-10); HEMATOCRIT 42 % (40-54); HEMOGLOBIN 13.7 g/dL (13.3-17.7); LYMPHOCYTES # (AUTO) 2.1 10^3/uL (1.0-4.0); LYMPHOCYTES % (AUTO) 25 % (12-44); MEAN CORPUSCULAR HEMOGLOBIN 30 pg (25-34); MEAN CORPUSCULAR HGB CONC 33 g/dL (32-36); MEAN CORPUSCULAR VOLUME 90 fL (80-99); MEAN PLATELET VOLUME 9.2 fL (9.0-12.2); MONOCYTES # (AUTO) 0.4 10^3/uL (0.0-1.0); MONOCYTES % (AUTO) 5 % (0-12); NEUTROPHILS # (AUTO) 5.7 10^3/uL (1.8-7.8); NEUTROPHILS % (AUTO) 69 % (42-75); PLATELET COUNT 242 10^3/uL (130-400); WHITE BLOOD COUNT 8.4 10^3/uL (4.3-11.0)
[2020-09-20 13:53] LABS: BUN/CREATININE RATIO 14; CALCIUM 9.8 MG/DL (8.5-10.1); CARBON DIOXIDE 30 MMOL/L (21-32); CHLORIDE 106 MMOL/L (98-107); CREATININE SERUM 0.73 MG/DL (0.60-1.30); GFR ESTIMATED > 60; GLUCOSE 118 MG/DL (70-105); MAGNESIUM 1.8 MG/DL (1.6-2.4); PHOSPHORUS 2.6 MG/DL (2.3-4.7); POTASSIUM 3.9 MMOL/L (3.6-5.0); SODIUM 141 MMOL/L (135-145)
[2020-09-27 13:56] LABS: BASOPHILS % (AUTO) 0 % (0-10); EOSINOPHILS # (AUTO) 0.1 10^3/uL (0.0-0.3); EOSINOPHILS % (AUTO) 1 % (0-10); HEMATOCRIT 42 % (40-54); HEMOGLOBIN 14.1 g/dL (13.3-17.7); LYMPHOCYTES # (AUTO) 2.5 10^3/uL (1.0-4.0); LYMPHOCYTES % (AUTO) 37 % (12-44); MEAN CORPUSCULAR HEMOGLOBIN 30 pg (25-34); MEAN CORPUSCULAR HGB CONC 33 g/dL (32-36); MEAN CORPUSCULAR VOLUME 89 fL (80-99); MEAN PLATELET VOLUME 9.5 fL (9.0-12.2); MONOCYTES # (AUTO) 0.4 10^3/uL (0.0-1.0); MONOCYTES % (AUTO) 6 % (0-12); NEUTROPHILS # (AUTO) 3.7 10^3/uL (1.8-7.8); NEUTROPHILS % (AUTO) 55 % (42-75); PLATELET COUNT 285 10^3/uL (130-400); WHITE BLOOD COUNT 6.7 10^3/uL (4.3-11.0)
[2020-09-27 14:25] LABS: BUN/CREATININE RATIO 12; CALCIUM 10.6 MG/DL (8.5-10.1); CARBON DIOXIDE 27 MMOL/L (21-32); CHLORIDE 103 MMOL/L (98-107); CREATININE SERUM 0.75 MG/DL (0.60-1.30); GFR ESTIMATED > 60; GLUCOSE 91 MG/DL (70-105); PHOSPHORUS 3.2 MG/DL (2.3-4.7); POTASSIUM 4.1 MMOL/L (3.6-5.0); SODIUM 140 MMOL/L (135-145)
== END 2020-09-27 09:28 | disposition home or self-care (01) ==
LOC: ONC 13:07
PROVIDERS: ATTEND Internal Medicine Hematology & Oncology
DX: C92.40 Acute promyelocytic leukemia, not having achieved remission (principal); D61.818 Other pancytopenia; E55.9 Vitamin D deficiency, unspecified
CPT/HCPCS: 36591; 80048; 80053; 83735; 84100; 85025; 93005; 96375; 96413

== ENCOUNTER 2020-12-20 13:49 | Outpatient (RCR) | payer MEDICAID ==
[2020-10-04 13:54] LABS: BASOPHILS % (AUTO) 0 % (0-10); EOSINOPHILS # (AUTO) 0.1 10^3/uL (0.0-0.3); EOSINOPHILS % (AUTO) 1 % (0-10); HEMATOCRIT 44 % (40-54); HEMOGLOBIN 14.3 g/dL (13.3-17.7); LYMPHOCYTES # (AUTO) 2.6 10^3/uL (1.0-4.0); LYMPHOCYTES % (AUTO) 32 % (12-44); MEAN CORPUSCULAR HEMOGLOBIN 29 pg (25-34); MEAN CORPUSCULAR HGB CONC 33 g/dL (32-36); MEAN CORPUSCULAR VOLUME 89 fL (80-99); MEAN PLATELET VOLUME 9.9 fL (9.0-12.2); MONOCYTES # (AUTO) 0.7 10^3/uL (0.0-1.0); MONOCYTES % (AUTO) 9 % (0-12); NEUTROPHILS # (AUTO) 4.9 10^3/uL (1.8-7.8); NEUTROPHILS % (AUTO) 58 % (42-75); PLATELET COUNT 324 10^3/uL (130-400); WHITE BLOOD COUNT 8.4 10^3/uL (4.3-11.0)
[2020-10-04 14:07] LABS: BUN/CREATININE RATIO 13; CARBON DIOXIDE 24 MMOL/L (21-32); CHLORIDE 106 MMOL/L (98-107); CREATININE SERUM 0.75 MG/DL (0.60-1.30); GFR ESTIMATED > 60; GLUCOSE 89 MG/DL (70-105); MAGNESIUM 1.8 MG/DL (1.6-2.4); PHOSPHORUS 3.1 MG/DL (2.3-4.7); SODIUM 140 MMOL/L (135-145)
[2020-10-11 12:03] LABS: BASOPHILS % (AUTO) 0 % (0-10); EOSINOPHILS # (AUTO) 0.1 10^3/uL (0.0-0.3); EOSINOPHILS % (AUTO) 1 % (0-10); HEMATOCRIT 40 % (40-54); HEMOGLOBIN 13.4 g/dL (13.3-17.7); LYMPHOCYTES # (AUTO) 2.3 10^3/uL (1.0-4.0); LYMPHOCYTES % (AUTO) 27 % (12-44); MEAN CORPUSCULAR HEMOGLOBIN 30 pg (25-34); MEAN CORPUSCULAR HGB CONC 33 g/dL (32-36); MEAN CORPUSCULAR VOLUME 89 fL (80-99); MEAN PLATELET VOLUME 10.2 fL (9.0-12.2); MONOCYTES # (AUTO) 0.5 10^3/uL (0.0-1.0); MONOCYTES % (AUTO) 6 % (0-12); NEUTROPHILS # (AUTO) 5.4 10^3/uL (1.8-7.8); NEUTROPHILS % (AUTO) 65 % (42-75); PLATELET COUNT 273 10^3/uL (130-400); WHITE BLOOD COUNT 8.3 10^3/uL (4.3-11.0)
[2020-10-11 12:24] LABS: ALANINE AMINOTRANSFERASE 83 U/L (0-55); ALBUMIN 4.3 GM/DL (3.2-4.5); ALKALINE PHOSPHATASE 54 U/L (40-136); BILIRUBIN,TOTAL 0.3 MG/DL (0.1-1.0); BUN/CREATININE RATIO 10; CALCIUM 9.6 MG/DL (8.5-10.1); CARBON DIOXIDE 26 MMOL/L (21-32); CHLORIDE 107 MMOL/L (98-107); CREATININE SERUM 0.71 MG/DL (0.60-1.30); GFR ESTIMATED > 60; GLUCOSE 105 MG/DL (70-105); MAGNESIUM 2.2 MG/DL (1.6-2.4); PHOSPHORUS 2.4 MG/DL (2.3-4.7); POTASSIUM 3.9 MMOL/L (3.6-5.0); SODIUM 140 MMOL/L (135-145)
[2020-10-18 13:19] LABS: BASOPHILS % (AUTO) 0 % (0-10); EOSINOPHILS # (AUTO) 0.1 10^3/uL (0.0-0.3); EOSINOPHILS % (AUTO) 1 % (0-10); HEMATOCRIT 42 % (40-54); HEMOGLOBIN 13.8 g/dL (13.3-17.7); LYMPHOCYTES # (AUTO) 3.2 10^3/uL (1.0-4.0); LYMPHOCYTES % (AUTO) 30 % (12-44); MEAN CORPUSCULAR HEMOGLOBIN 30 pg (25-34); MEAN CORPUSCULAR HGB CONC 33 g/dL (32-36); MEAN CORPUSCULAR VOLUME 89 fL (80-99); MEAN PLATELET VOLUME 9.7 fL (9.0-12.2); MONOCYTES # (AUTO) 0.5 10^3/uL (0.0-1.0); MONOCYTES % (AUTO) 5 % (0-12); NEUTROPHILS # (AUTO) 6.6 10^3/uL (1.8-7.8); NEUTROPHILS % (AUTO) 63 % (42-75); PLATELET COUNT 293 10^3/uL (130-400); WHITE BLOOD COUNT 10.5 10^3/uL (4.3-11.0)
[2020-10-18 13:40] LABS: BUN/CREATININE RATIO 17; CALCIUM 9.6 MG/DL (8.5-10.1); CARBON DIOXIDE 23 MMOL/L (21-32); CHLORIDE 102 MMOL/L (98-107); GFR ESTIMATED > 60; GLUCOSE 75 MG/DL (70-105); POTASSIUM 4.1 MMOL/L (3.6-5.0); SODIUM 138 MMOL/L (135-145)
[2020-10-25 13:13] LABS: BASOPHILS % (AUTO) 0 % (0-10); EOSINOPHILS # (AUTO) 0.1 10^3/uL (0.0-0.3); EOSINOPHILS % (AUTO) 1 % (0-10); HEMATOCRIT 39 % (40-54); HEMOGLOBIN 12.9 g/dL (13.3-17.7); LYMPHOCYTES % (AUTO) 25 % (12-44); MEAN CORPUSCULAR HEMOGLOBIN 30 pg (25-34); MEAN CORPUSCULAR HGB CONC 33 g/dL (32-36); MEAN CORPUSCULAR VOLUME 91 fL (80-99); MEAN PLATELET VOLUME 9.6 fL (9.0-12.2); MONOCYTES # (AUTO) 0.6 10^3/uL (0.0-1.0); MONOCYTES % (AUTO) 5 % (0-12); NEUTROPHILS # (AUTO) 8.2 10^3/uL (1.8-7.8); NEUTROPHILS % (AUTO) 69 % (42-75); PLATELET COUNT 274 10^3/uL (130-400); WHITE BLOOD COUNT 11.9 10^3/uL (4.3-11.0)
[2020-10-25 13:32] LABS: BUN/CREATININE RATIO 17; CALCIUM 9.4 MG/DL (8.5-10.1); CARBON DIOXIDE 23 MMOL/L (21-32); CHLORIDE 105 MMOL/L (98-107); GFR ESTIMATED > 60; GLUCOSE 76 MG/DL (70-105); MAGNESIUM 2.1 MG/DL (1.6-2.4); PHOSPHORUS 4.5 MG/DL (2.3-4.7); POTASSIUM 4.1 MMOL/L (3.6-5.0); SODIUM 140 MMOL/L (135-145)
[2020-11-01 13:09] LABS: BASOPHILS % (AUTO) 0 % (0-10); EOSINOPHILS # (AUTO) 0.1 10^3/uL (0.0-0.3); EOSINOPHILS % (AUTO) 1 % (0-10); HEMATOCRIT 41 % (40-54); HEMOGLOBIN 13.5 g/dL (13.3-17.7); LYMPHOCYTES # (AUTO) 2.9 10^3/uL (1.0-4.0); LYMPHOCYTES % (AUTO) 30 % (12-44); MEAN CORPUSCULAR HEMOGLOBIN 30 pg (25-34); MEAN CORPUSCULAR HGB CONC 33 g/dL (32-36); MEAN CORPUSCULAR VOLUME 92 fL (80-99); MEAN PLATELET VOLUME 9.5 fL (9.0-12.2); MONOCYTES # (AUTO) 0.5 10^3/uL (0.0-1.0); MONOCYTES % (AUTO) 5 % (0-12); NEUTROPHILS # (AUTO) 6.2 10^3/uL (1.8-7.8); NEUTROPHILS % (AUTO) 63 % (42-75); PLATELET COUNT 266 10^3/uL (130-400); WHITE BLOOD COUNT 9.9 10^3/uL (4.3-11.0)
[2020-11-01 13:27] LABS: BUN/CREATININE RATIO 17; CALCIUM 9.5 MG/DL (8.5-10.1); CARBON DIOXIDE 26 MMOL/L (21-32); CHLORIDE 105 MMOL/L (98-107); CREATININE SERUM 0.71 MG/DL (0.60-1.30); GFR ESTIMATED > 60; GLUCOSE 92 MG/DL (70-105); MAGNESIUM 2.1 MG/DL (1.6-2.4); PHOSPHORUS 4.7 MG/DL (2.3-4.7); POTASSIUM 3.9 MMOL/L (3.6-5.0); SODIUM 140 MMOL/L (135-145)
[2020-11-08 13:47] LABS: BASOPHILS % (AUTO) 0 % (0-10); EOSINOPHILS # (AUTO) 0.1 10^3/uL (0.0-0.3); EOSINOPHILS % (AUTO) 1 % (0-10); HEMATOCRIT 44 % (40-54); HEMOGLOBIN 14.4 g/dL (13.3-17.7); LYMPHOCYTES # (AUTO) 2.7 10^3/uL (1.0-4.0); LYMPHOCYTES % (AUTO) 34 % (12-44); MEAN CORPUSCULAR HEMOGLOBIN 30 pg (25-34); MEAN CORPUSCULAR HGB CONC 33 g/dL (32-36); MEAN CORPUSCULAR VOLUME 92 fL (80-99); MEAN PLATELET VOLUME 10.1 fL (9.0-12.2); MONOCYTES # (AUTO) 0.4 10^3/uL (0.0-1.0); MONOCYTES % (AUTO) 5 % (0-12); NEUTROPHILS # (AUTO) 4.8 10^3/uL (1.8-7.8); NEUTROPHILS % (AUTO) 59 % (42-75); PLATELET COUNT 282 10^3/uL (130-400); WHITE BLOOD COUNT 8.1 10^3/uL (4.3-11.0)
[2020-11-08 14:10] LABS: ALANINE AMINOTRANSFERASE 41 U/L (0-55); ALBUMIN 4.5 GM/DL (3.2-4.5); ALKALINE PHOSPHATASE 67 U/L (40-136); BILIRUBIN,TOTAL 0.5 MG/DL (0.1-1.0); BUN/CREATININE RATIO 18; CALCIUM 10.6 MG/DL (8.5-10.1); CARBON DIOXIDE 24 MMOL/L (21-32); CHLORIDE 103 MMOL/L (98-107); CREATININE SERUM 0.87 MG/DL (0.60-1.30); GFR ESTIMATED > 60; GLUCOSE 82 MG/DL (70-105); MAGNESIUM 2.2 MG/DL (1.6-2.4); PHOSPHORUS 6.1 MG/DL (2.3-4.7); POTASSIUM 4.1 MMOL/L (3.6-5.0); SODIUM 140 MMOL/L (135-145); TOTAL PROTEIN 7.4 GM/DL (6.4-8.2)
[2020-11-15 13:05] LABS: BASOPHILS % (AUTO) 0 % (0-10); EOSINOPHILS % (AUTO) 1 % (0-10); HEMATOCRIT 41 % (40-54); HEMOGLOBIN 13.7 g/dL (13.3-17.7); LYMPHOCYTES # (AUTO) 2.2 10^3/uL (1.0-4.0); LYMPHOCYTES % (AUTO) 36 % (12-44); MEAN CORPUSCULAR HEMOGLOBIN 30 pg (25-34); MEAN CORPUSCULAR HGB CONC 33 g/dL (32-36); MEAN CORPUSCULAR VOLUME 91 fL (80-99); MEAN PLATELET VOLUME 9.2 fL (9.0-12.2); MONOCYTES # (AUTO) 0.3 10^3/uL (0.0-1.0); MONOCYTES % (AUTO) 6 % (0-12); NEUTROPHILS # (AUTO) 3.6 10^3/uL (1.8-7.8); NEUTROPHILS % (AUTO) 58 % (42-75); PLATELET COUNT 261 10^3/uL (130-400); WHITE BLOOD COUNT 6.2 10^3/uL (4.3-11.0)
[2020-11-15 13:22] LABS: BUN/CREATININE RATIO 12; CALCIUM 9.8 MG/DL (8.5-10.1); CARBON DIOXIDE 26 MMOL/L (21-32); CHLORIDE 106 MMOL/L (98-107); CREATININE SERUM 0.78 MG/DL (0.60-1.30); GFR ESTIMATED > 60; GLUCOSE 102 MG/DL (70-105); MAGNESIUM 1.8 MG/DL (1.6-2.4); POTASSIUM 3.9 MMOL/L (3.6-5.0); SODIUM 142 MMOL/L (135-145)
[2020-12-01 13:03] LABS: ABSOLUTE RETIC # 103 10e9/uL (24-90); BASOPHILS % (AUTO) 0 % (0-10); EOSINOPHILS # (AUTO) 0.1 10^3/uL (0.0-0.3); EOSINOPHILS % (AUTO) 1 % (0-10); HEMATOCRIT 42 % (40-54); HEMOGLOBIN 14.2 g/dL (13.3-17.7); LYMPHOCYTES # (AUTO) 2.6 10^3/uL (1.0-4.0); LYMPHOCYTES % (AUTO) 26 % (12-44); MEAN CORPUSCULAR HEMOGLOBIN 30 pg (25-34); MEAN CORPUSCULAR HGB CONC 34 g/dL (32-36); MEAN CORPUSCULAR VOLUME 90 fL (80-99); MEAN PLATELET VOLUME 9.9 fL (9.0-12.2); MONOCYTES # (AUTO) 0.8 10^3/uL (0.0-1.0); MONOCYTES % (AUTO) 8 % (0-12); NEUTROPHILS # (AUTO) 6.3 10^3/uL (1.8-7.8); NEUTROPHILS % (AUTO) 64 % (42-75); PLATELET COUNT 321 10^3/uL (130-400); RETICULOCYTE % 2.17 % (0.50-2.40); WHITE BLOOD COUNT 9.8 10^3/uL (4.3-11.0)
[2020-12-01 13:19] LABS: ALANINE AMINOTRANSFERASE 144 U/L (0-55); ALBUMIN 4.5 GM/DL (3.2-4.5); ALKALINE PHOSPHATASE 58 U/L (40-136); BILIRUBIN,TOTAL 0.4 MG/DL (0.1-1.0); BUN/CREATININE RATIO 10; CALCIUM 9.5 MG/DL (8.5-10.1); CARBON DIOXIDE 26 MMOL/L (21-32); CHLORIDE 105 MMOL/L (98-107); CREATININE SERUM 0.78 MG/DL (0.60-1.30); GFR ESTIMATED > 60; GLUCOSE 85 MG/DL (70-105); PHOSPHORUS 2.8 MG/DL (2.3-4.7); POTASSIUM 3.9 MMOL/L (3.6-5.0); SODIUM 141 MMOL/L (135-145); TOTAL PROTEIN 7.1 GM/DL (6.4-8.2)
[2020-12-01 13:25] LABS: BAND NEUTROPHILS 2 %; EOSINOPHILS % (MANUAL) 1 %; LYMPHOCYTES % (MANUAL) 34 %; MONOCYTES % (MANUAL) 5 %; NEUTROPHILS % (MANUAL) 58 %; RBC MORPH NORMAL
== END 2020-12-26 | disposition home or self-care (01) ==
LOC: ONC 13:49
PROVIDERS: ATTEND Internal Medicine Hematology & Oncology
DX: C92.40 Acute promyelocytic leukemia, not having achieved remission (principal); D61.818 Other pancytopenia; E55.9 Vitamin D deficiency, unspecified
CPT/HCPCS: 36591; 38222; 80048; 80053; 81315; 82306; 83615; 83735; 84100; 85007; 85025; 85027; 85045; 88184; 88185; 88237; 88264; 88305; 88311; 88313; 88377; 93005; 96375; 96413; 99213

== ENCOUNTER 2021-03-29 13:58 | Outpatient (RCR) | payer MEDICAID ==
[2021-03-08 11:13] LABS: BASOPHILS # (AUTO) 0.1 10^3/uL (0.0-0.1); BASOPHILS % (AUTO) 1 % (0-10); EOSINOPHILS # (AUTO) 0.3 10^3/uL (0.0-0.3); EOSINOPHILS % (AUTO) 4 % (0-10); HEMATOCRIT 47 % (40-54); HEMOGLOBIN 15.5 g/dL (13.3-17.7); LYMPHOCYTES # (AUTO) 2.4 10^3/uL (1.0-4.0); LYMPHOCYTES % (AUTO) 32 % (12-44); MEAN CORPUSCULAR HEMOGLOBIN 29 pg (25-34); MEAN CORPUSCULAR HGB CONC 33 g/dL (32-36); MEAN CORPUSCULAR VOLUME 87 fL (80-99); MONOCYTES # (AUTO) 0.4 10^3/uL (0.0-1.0); MONOCYTES % (AUTO) 5 % (0-12); NEUTROPHILS # (AUTO) 4.3 10^3/uL (1.8-7.8); NEUTROPHILS % (AUTO) 58 % (42-75); PLATELET COUNT 278 10^3/uL (130-400); WHITE BLOOD COUNT 7.4 10^3/uL (4.3-11.0)
[2021-03-08 11:35] LABS: ALANINE AMINOTRANSFERASE 51 U/L (0-55); ALBUMIN 4.5 GM/DL (3.2-4.5); ALKALINE PHOSPHATASE 66 U/L (40-136); BILIRUBIN,TOTAL 0.4 MG/DL (0.1-1.0); BUN/CREATININE RATIO 11; CALCIUM 9.7 MG/DL (8.5-10.1); CARBON DIOXIDE 25 MMOL/L (21-32); CHLORIDE 104 MMOL/L (98-107); CREATININE SERUM 0.74 MG/DL (0.60-1.30); GFR ESTIMATED > 60; GLUCOSE 91 MG/DL (70-105); SODIUM 138 MMOL/L (135-145); TOTAL PROTEIN 7.5 GM/DL (6.4-8.2)
[~2021-03-29 13:58] MED LIST changes: -ARSENIC TRIOXIDE IV SCH; +ERGO1250 PO; -ERGO50006 PO; -NS IV 1000 ML (CANCER CTR) IV SCH; -NS IV SCH
== END 2021-06-06 | disposition home or self-care (01) ==
LOC: ONC 13:58
PROVIDERS: ATTEND Internal Medicine Hematology & Oncology
DX: C92.41 Acute promyelocytic leukemia, in remission (principal); D61.818 Other pancytopenia; E55.9 Vitamin D deficiency, unspecified
CPT/HCPCS: 36591; 80053; 85025; 99213

== ENCOUNTER → 2021-09-20 | Outpatient (RCR) | payer MEDICAID ==
[2021-06-22 11:16] LABS: BASOPHILS % (AUTO) 0 % (0-10); EOSINOPHILS # (AUTO) 0.3 10^3/uL (0.0-0.3); EOSINOPHILS % (AUTO) 4 % (0-10); HEMATOCRIT 43 % (40-54); HEMOGLOBIN 14.7 g/dL (13.3-17.7); LYMPHOCYTES # (AUTO) 2.7 10^3/uL (1.0-4.0); LYMPHOCYTES % (AUTO) 31 % (12-44); MEAN CORPUSCULAR HEMOGLOBIN 30 pg (25-34); MEAN CORPUSCULAR HGB CONC 34 g/dL (32-36); MEAN CORPUSCULAR VOLUME 87 fL (80-99); MEAN PLATELET VOLUME 9.7 fL (9.0-12.2); MONOCYTES # (AUTO) 0.4 10^3/uL (0.0-1.0); MONOCYTES % (AUTO) 5 % (0-12); NEUTROPHILS # (AUTO) 5.1 10^3/uL (1.8-7.8); NEUTROPHILS % (AUTO) 59 % (42-75); PLATELET COUNT 288 10^3/uL (130-400); WHITE BLOOD COUNT 8.6 10^3/uL (4.3-11.0)
[2021-06-22 11:40] LABS: ALBUMIN 4.3 GM/DL (3.2-4.5); BILIRUBIN,TOTAL 0.4 MG/DL (0.1-1.0); CALCIUM 9.6 MG/DL (8.5-10.1); CREATININE SERUM 0.73 MG/DL (0.60-1.30); POTASSIUM 4.2 MMOL/L (3.6-5.0); TOTAL PROTEIN 6.9 GM/DL (6.4-8.2)
[~2021-09-20] MED LIST changes: +ONDA-106 PO; -ONDA8TAB15 PO; +POTA-179 PO; -POTA20TA15 PO
[2021-09-20 12:17] LABS: BASOPHILS % (AUTO) 1 % (0-10); EOSINOPHILS # (AUTO) 0.2 10^3/uL (0.0-0.3); EOSINOPHILS % (AUTO) 2 % (0-10); HEMATOCRIT 44 % (40-54); HEMOGLOBIN 14.6 g/dL (13.3-17.7); LYMPHOCYTES # (AUTO) 2.3 10^3/uL (1.0-4.0); LYMPHOCYTES % (AUTO) 27 % (12-44); MEAN CORPUSCULAR HEMOGLOBIN 29 pg (25-34); MEAN CORPUSCULAR HGB CONC 33 g/dL (32-36); MEAN CORPUSCULAR VOLUME 87 fL (80-99); MEAN PLATELET VOLUME 9.7 fL (9.0-12.2); MONOCYTES # (AUTO) 0.4 10^3/uL (0.0-1.0); MONOCYTES % (AUTO) 5 % (0-12); NEUTROPHILS # (AUTO) 5.7 10^3/uL (1.8-7.8); NEUTROPHILS % (AUTO) 65 % (42-75); PLATELET COUNT 274 10^3/uL (130-400); WHITE BLOOD COUNT 8.7 10^3/uL (4.3-11.0)
[2021-09-20 12:39] LABS: ALBUMIN 4.5 GM/DL (3.2-4.5); BILIRUBIN,TOTAL 0.5 MG/DL (0.1-1.0); CALCIUM 9.6 MG/DL (8.5-10.1); CREATININE SERUM 0.75 MG/DL (0.60-1.30); POTASSIUM 3.9 MMOL/L (3.6-5.0); TOTAL PROTEIN 7.4 GM/DL (6.4-8.2)
== END | disposition home or self-care (01) ==
LOC: ONC 06-22 11:04
PROVIDERS: ATTEND Internal Medicine Hematology & Oncology
DX: C92.41 Acute promyelocytic leukemia, in remission (principal); D61.818 Other pancytopenia; E55.9 Vitamin D deficiency, unspecified; Z45.2 Encounter for adjustment and management of vascular access device
CPT/HCPCS: 36591; 80053; 81315; 82306; 83615; 85025; 99213

== ENCOUNTER 2021-10-11 14:42 | Outpatient (RCR) | payer MEDICAID | END 2021-10-24 | disposition home or self-care (01) | LOC: ONC 14:42 | PROVIDERS: ATTEND Internal Medicine Hematology & Oncology | DX: C92.41 Acute promyelocytic leukemia, in remission (principal); E55.9 Vitamin D deficiency, unspecified; Z98.890 Other specified postprocedural states | CPT/HCPCS: 99213 ==

== ENCOUNTER 2021-12-20 12:40 | Outpatient (RCR) | payer MEDICAID ==
[2021-12-20 13:33] LABS: BASOPHILS # (AUTO) 0.1 10^3/uL (0.0-0.1); BASOPHILS % (AUTO) 1 % (0-10); EOSINOPHILS # (AUTO) 0.3 10^3/uL (0.0-0.3); EOSINOPHILS % (AUTO) 4 % (0-10); HEMATOCRIT 44 % (40-54); HEMOGLOBIN 14.6 g/dL (13.3-17.7); LYMPHOCYTES # (AUTO) 2.5 10^3/uL (1.0-4.0); LYMPHOCYTES % (AUTO) 29 % (12-44); MEAN CORPUSCULAR HEMOGLOBIN 29 pg (25-34); MEAN CORPUSCULAR HGB CONC 34 g/dL (32-36); MEAN CORPUSCULAR VOLUME 87 fL (80-99); MEAN PLATELET VOLUME 9.5 fL (9.0-12.2); MONOCYTES # (AUTO) 0.4 10^3/uL (0.0-1.0); MONOCYTES % (AUTO) 5 % (0-12); NEUTROPHILS # (AUTO) 5.1 10^3/uL (1.8-7.8); NEUTROPHILS % (AUTO) 61 % (42-75); PLATELET COUNT 303 10^3/uL (130-400); WHITE BLOOD COUNT 8.5 10^3/uL (4.3-11.0)
[2021-12-20 13:52] LABS: ALBUMIN 4.4 GM/DL (3.2-4.5); BILIRUBIN,TOTAL 0.6 MG/DL (0.1-1.0); CALCIUM 9.7 MG/DL (8.5-10.1); CREATININE SERUM 0.74 MG/DL (0.60-1.30); TOTAL PROTEIN 7.3 GM/DL (6.4-8.2)
== END 2021-12-22 | disposition home or self-care (01) ==
LOC: ONC 12:40
PROVIDERS: ATTEND Internal Medicine Hematology & Oncology
DX: Z51.11 Encounter for antineoplastic chemotherapy (principal); C92.41 Acute promyelocytic leukemia, in remission; E55.9 Vitamin D deficiency, unspecified; R74.01 Elevation of levels of liver transaminase levels; Z98.890 Other specified postprocedural states
CPT/HCPCS: 80053; 81315; 85025

== ENCOUNTER 2022-01-10 12:51 | Outpatient (RCR) | payer MEDICAID | END 2022-01-21 | disposition home or self-care (01) | LOC: ONC 12:51 | PROVIDERS: ATTEND Internal Medicine Hematology & Oncology | DX: C92.41 Acute promyelocytic leukemia, in remission (principal) | CPT/HCPCS: 99213 ==

== ENCOUNTER 2022-04-11 10:18 | Outpatient (RCR) | payer MEDICAID ==
[2022-03-28 11:09] LABS: BASOPHILS % (AUTO) 1 % (0-10); EOSINOPHILS # (AUTO) 0.3 10^3/uL (0.0-0.3); EOSINOPHILS % (AUTO) 4 % (0-10); HEMATOCRIT 42 % (40-54); HEMOGLOBIN 14.2 g/dL (13.3-17.7); LYMPHOCYTES # (AUTO) 2.7 10^3/uL (1.0-4.0); LYMPHOCYTES % (AUTO) 36 % (12-44); MEAN CORPUSCULAR HEMOGLOBIN 30 pg (25-34); MEAN CORPUSCULAR HGB CONC 34 g/dL (32-36); MEAN CORPUSCULAR VOLUME 87 fL (80-99); MEAN PLATELET VOLUME 9.8 fL (9.0-12.2); MONOCYTES # (AUTO) 0.3 10^3/uL (0.0-1.0); MONOCYTES % (AUTO) 5 % (0-12); NEUTROPHILS # (AUTO) 4.1 10^3/uL (1.8-7.8); NEUTROPHILS % (AUTO) 55 % (42-75); PLATELET COUNT 264 10^3/uL (130-400); WHITE BLOOD COUNT 7.5 10^3/uL (4.3-11.0)
[2022-03-28 11:38] LABS: ALBUMIN 4.4 GM/DL (3.2-4.5); BILIRUBIN,TOTAL 0.5 MG/DL (0.1-1.0); CALCIUM 9.5 MG/DL (8.5-10.1); CREATININE SERUM 0.75 MG/DL (0.60-1.30); POTASSIUM 3.8 MMOL/L (3.6-5.0)
[2022-04-11 21:20] LABS: HEPATITIS C ANTIBODY C Non-Reactive (Non-Reactive)
== END 2022-04-23 | disposition home or self-care (01) ==
LOC: ONC 10:18
PROVIDERS: ATTEND Internal Medicine Hematology & Oncology
DX: C92.41 Acute promyelocytic leukemia, in remission (principal); Z45.2 Encounter for adjustment and management of vascular access device
CPT/HCPCS: 36415; 80053; 80074; 81315; 82728; 83540; 83550; 85025; 96523; 99213

== ENCOUNTER 2022-04-25 20:00 | Emergency (ER) | payer MEDICAID ==
[2022-04-25 20:44] VITALS: BP 125/77
[2022-04-25] MEDS ORDERED: CEPH500T PO (21:08)
--- NOTE | 2022-04-25 21:08 | ED General ---
General Chief Complaint: Bite-Animal/Human/Insect Stated Complaint: RIGHT LOWER ABD POSS SPIDER BITE Nursing Triage Note: PT PRESENTS WITH C/O SPIDER BITE TO RLQ. REPORTS NOTICED BITE TODAY. AREA IS RED AND RAISED SENSITIVE TO TOUCH. Source of Information: Patient Exam Limitations: No Limitations (MARÍA GILBERT) History of Present Illness Date Seen by Provider: Apr 25, 2022 Time Seen by Provider: 21:04 Initial Comments Patient is a 21-year-old male who presents the ED with concern for possible spider bite to his abdomen. States he was cleaning out a building around his evangelical when he noticed a bunch of brown recluse spiders. Attempted to kill the spiders by "bombing them" with chemicals. Noticed a small red renan to his right lower abdomen. Mild increased redness. Denies of any necrotic skin. Denies fever. Did have some shakes today that may be result from the spider bite versus aftereffects from his chemotherapy from his leukemia. He states he was on chemotherapy 1 year ago for leukemia. Has not had any change in his lab work. Lab work drawn last week that was unremarkable besides elevated liver enzymes. Had a negative hepatitis panel. Denies any fever, cough, chest pain, vomiting, diarrhea. (MARÍA GILBERT) Allergies and Home Medications Allergies Coded Allergies: No Known Drug Allergies (Unverified , 03/22/20) Patient Home Medication List Home Medication List Reviewed: Yes (MARÍA GILBERT) Amoxicillin/Potassium Clav (Amox Tr-K Clv 875-125 mg Tab) 1 Each Tablet, 1 EACH PO Q12H, (Reported) Entered as Reported by: AURA CR on 05/26/20 1039 Calcium Acetate (Calcium Acetate) 667 Mg Tablet, 1,334 MG PO TID, (Reported) Entered as Reported by: AURA CR on 05/26/20 1039 Cephalexin (Cephalexin) 500 Mg Tablet, 500 MG PO QID Prescribed by: LIZ YU on 04/25/222107 Ergocalciferol (Vitamin D2) (Vitamin D2) 1,250 Mcg Capsule, 1,250 MCG PO WEEK, (Reported) Entered as Reported by: AURA CR on 05/26/20 1039 Hydrocodone/Acetaminophen (Hydrocodone/Acetaminophen 5 MG/325 MG TAB) 1 Each Tab let, 1 TAB PO Q6H Prescribed by: ANIYA SANDOVAL on 05/28/20 1031 Ondansetron HCl (Ondansetron HCl) 8 Mg Tablet, 8 MG PO Q8H PRN for NAUSEA/VOMITING, (Reported) Entered as Reported by: AURA CR on 05/26/20 1039 Potassium Chloride (Potassium Chloride) 20 Meq Tab.er.prt, 20 MEQ PO BID, (Reported) Entered as Reported by: AURA CR on 05/26/20 1039 Tretinoin (Tretinoin) 10 Mg Capsule, 50 MG PO BID, (Reported) Entered as Reported by: AURA CR on 05/26/20 1039 Review of Systems Review of Systems Constitutional: No chills, No diaphoresis, No malaise, No weakness EENTM: No blurred vision, No double vision, No dental problems, No mouth pain, No mouth swelling Respiratory: No cough Cardiovascular: No chest pain, No edema Gastrointestinal: abdominal pain; No diarrhea, No nausea, No vomiting Genitourinary: No decreased output, No discharge Musculoskeletal: No back pain, No joint pain Skin: change in color (MARÍA GILBERT) All Other Systems Reviewed Negative Unless Noted: Yes (MARÍA GILBERT) Past Xmlmapp-Fntltv-Hehjdz Hx Patient Social History Tobacco Use?: No Substance use?: No Alcohol Use?: No (MARÍA GILBERT) Immunizations Up To Date Tetanus Booster (TDap): Unknown Influenza Vaccine Up-to-Date: No; Not Current (MARÍA GILBERT) Seasonal Allergies Seasonal Allergies: Yes (MARÍA GILBERT) Past Medical History Surgeries: Yes Tonsillectomy Respiratory: Yes Asthma Currently Using CPAP: No Currently Using BIPAP: No Cardiac: No Neurological: No Reproductive Disorders: No Genitourinary: No Gastrointestinal: No Musculoskeletal: No Endocrine: No HEENT: No Tonsilitis Cancer: Yes Leukemia Did You Recieve Any Treatments: Yes What Type of Treatment Did You: Chemotherapy Psychosocial: No Integumentary: No Blood Disorders: No Adverse Reaction/Blood Tranf: No (MARÍA GILBERT) Family Medical History FH: anemia 19 MOTHER G8 SISTER grandmother FH: diverticulitis grandmother No Pertinent Family Hx (MARÍA GILBERT) Physical Exam Vital Signs Vital Signs - First Documented 04/25/22 20:44 Temp 37.0 Pulse 110 Resp 18 B/P (MAP) 125/77 (93) (OTILIA ARAUZ MD) Vital Signs Capillary Refill : (MARÍA GILBERT) Height, Weight, BMI Height: '" Weight: lbs. oz. kg; 33.00 BMI Method: General Appearance: No Apparent Distress, WD/WN Eyes: Bilateral Eye Normal Inspection, Bilateral Eye PERRL, Bilateral Eye EOMI HEENT: PERRL/EOMI, TMs Normal, Normal ENT Inspection, Pharynx Normal Neck: Full Range of Motion, Normal Inspection, Non Tender, Supple Respiratory: Chest Non Tender, Lungs Clear, Normal Breath Sounds, No Accessory Muscle Use, No Respiratory Distress Cardiovascular: Regular Rate, Rhythm, No Edema, No Gallop, No JVD Gastrointestinal: Normal Bowel Sounds, No Organomegaly, No Pulsatile Mass, Soft Rectal: Normal Exam Back: Normal Inspection, No CVA Tenderness, No Vertebral Tenderness Extremity: Normal Capillary Refill, Normal Inspection, Normal Range of Motion, Non Tender Neurologic/Psychiatric: Alert, Oriented x3, No Motor/Sensory Deficits Skin: Other (Mild erythema noted to right lower abdomen surrounding a hair follicle. No fluctuant mass necrotic tissue) (MARÍA GILBERT) Progress/Results/Core Measures Suspected Sepsis SIRS Temperature: Pulse: 110 Respiratory Rate: 18 Blood Pressure 125 /77 Mean: 93 (MARÍA GILBERT) Results/Orders Vital Signs/I&O 04/25/22 20:44 Temp 37.0 Pulse 110 Resp 18 B/P (MAP) 125/77 (93) (OTILIA ARAUZ MD) Vital Signs/I&O Capillary Refill : (MARÍA GILBERT) Blood Pressure Mean: 93 Departure Communication (PCP) Appears to be more folliculitis to the right lower abdomen. No necrotic tissue. Discussed with patient that this likely will improve with topical Neosporin. Will discharge with Keflex if redness or swelling increases. However if the swelling becomes more prominent with increasing pain needs return back to ED for further evaluation for potential incision and drainage. Do not feel a fluctuant mass at this time. Unlikely spider bite but is a possibility. Discussed keeping the area dry. Does not appear toxic. Patient had normal white blood count on March 30. (MARÍA GILBERT) Impression Primary Impression: Folliculitis Disposition: HOME, SELF-CARE Condition: Stable Departure-Patient Inst. Decision time for Depature: 21:07 (MARÍA GILBERT) Referrals: [facility] [place] PHYSICIAN (PCP) Primary Care Physician Patient Instructions: Insect Bites and Stings (DC) Add. Discharge Instructions: Recommend topical Neosporin. If increased redness recommend taking antibiotics. If increased swelling or pain to return back to ED for further evaluation All discharge instructions reviewed with patient and/or family. Voiced understanding. Scripts Cephalexin (Cephalexin) 500 Mg Tablet 500 MG PO QID for 7 Days, #28 TAB Prov: MARÍA GILBERT 04/25/22 ATTENDING PHYSICIAN NOTE: I was physically present as attending physician in the emergency department during the care of this patient, but I was not directly involved in the decision making or delivery of care for this patient. (OTILIA ARAUZ MD) MARÍA GILBERT Apr 25, 2022 21:08 OTILIA ARAUZ MD Apr 26, 2022 06:40
== END 2022-04-25 21:17 | disposition home or self-care (01) ==
LOC: EDUNIT# 20:00 → ER 20:04
DX: L73.9 Follicular disorder, unspecified (principal); Z28.310 Unvaccinated for COVID-19
CPT/HCPCS: 99281

== ENCOUNTER 2022-07-11 10:58 | Outpatient (RCR) | payer MEDICAID ==
[2022-06-27 15:46] LABS: BASOPHILS # (AUTO) 0.1 10^3/uL (0.0-0.1); BASOPHILS % (AUTO) 1 % (0-10); EOSINOPHILS # (AUTO) 0.4 10^3/uL (0.0-0.3); EOSINOPHILS % (AUTO) 3 % (0-10); HEMATOCRIT 44 % (40-54); HEMOGLOBIN 14.7 g/dL (13.3-17.7); LYMPHOCYTES # (AUTO) 3.2 X 10^3 (1.0-4.0); LYMPHOCYTES % (AUTO) 29 % (12-44); MEAN CORPUSCULAR HEMOGLOBIN 29 pg (25-34); MEAN CORPUSCULAR HGB CONC 34 g/dL (32-36); MEAN CORPUSCULAR VOLUME 87 fL (80-99); MEAN PLATELET VOLUME 9.7 fL (9.0-12.2); MONOCYTES # (AUTO) 0.6 X 10^3 (0.0-1.0); MONOCYTES % (AUTO) 5 % (0-12); NEUTROPHILS # (AUTO) 6.8 X 10^3 (1.8-7.8); NEUTROPHILS % (AUTO) 62 % (42-75); PLATELET COUNT 310 10^3/uL (130-400)
[2022-06-27 16:13] LABS: ALBUMIN 4.5 GM/DL (3.2-4.5); BILIRUBIN,TOTAL 0.4 MG/DL (0.1-1.0); CALCIUM 9.4 MG/DL (8.5-10.1); CREATININE SERUM 0.73 MG/DL (0.60-1.30); POTASSIUM 4.3 MMOL/L (3.6-5.0); TOTAL PROTEIN 7.3 GM/DL (6.4-8.2)
[~2022-07-11 10:58] MED LIST changes: +ALTEPLASE 2 MG (CATHFLO) IV ONE; +CEPH500T PO; +HEParin (CENTRAL IV FLUSH) 500 UNIT/5 ML SYR ONE
== END 2022-07-24 | disposition home or self-care (01) ==
LOC: ONC 10:58
PROVIDERS: ATTEND Internal Medicine Hematology & Oncology
DX: C92.40 Acute promyelocytic leukemia, not having achieved remission (principal); E55.9 Vitamin D deficiency, unspecified; Z45.2 Encounter for adjustment and management of vascular access device
CPT/HCPCS: 36593; 80053; 81315; 85025; 96523; 99213

== ENCOUNTER 2022-10-03 11:20 | Outpatient (RCR) | payer MEDICAID ==
[2022-09-26 11:40] LABS: BASOPHILS % (AUTO) 0 % (0-10); EOSINOPHILS # (AUTO) 0.2 10^3/uL (0.0-0.3); EOSINOPHILS % (AUTO) 2 % (0-10); HEMATOCRIT 42 % (40-54); HEMOGLOBIN 14.5 g/dL (13.3-17.7); LYMPHOCYTES % (AUTO) 29 % (12-44); MEAN CORPUSCULAR HEMOGLOBIN 29 pg (25-34); MEAN CORPUSCULAR HGB CONC 34 g/dL (32-36); MEAN CORPUSCULAR VOLUME 85 fL (80-99); MEAN PLATELET VOLUME 9.6 fL (9.0-12.2); MONOCYTES # (AUTO) 0.5 10^3/uL (0.0-1.0); MONOCYTES % (AUTO) 4 % (0-12); NEUTROPHILS # (AUTO) 6.7 10^3/uL (1.8-7.8); NEUTROPHILS % (AUTO) 64 % (42-75); PLATELET COUNT 292 10^3/uL (130-400); WHITE BLOOD COUNT 10.5 10^3/uL (4.3-11.0)
[2022-09-26 12:00] LABS: ALBUMIN 4.4 GM/DL (3.2-4.5); BILIRUBIN,TOTAL 0.4 MG/DL (0.1-1.0); CALCIUM 9.4 MG/DL (8.5-10.1); CREATININE SERUM 0.74 MG/DL (0.60-1.30); TOTAL PROTEIN 7.4 GM/DL (6.4-8.2)
[~2022-10-03 11:20] MED LIST changes: -ALTEPLASE 2 MG (CATHFLO) IV ONE; -HEParin (CENTRAL IV FLUSH) 500 UNIT/5 ML SYR ONE
== END 2022-10-24 | disposition home or self-care (01) ==
LOC: ONC 11:20
PROVIDERS: ATTEND Internal Medicine Hematology & Oncology
DX: Z45.2 Encounter for adjustment and management of vascular access device (principal); C92.40 Acute promyelocytic leukemia, not having achieved remission; E55.9 Vitamin D deficiency, unspecified
CPT/HCPCS: 36591; 80053; 81315; 85025; 99213

== ENCOUNTER 2022-12-12 11:42 | Outpatient (RCR) | payer MEDICARE, MEDICAID ==
[2022-12-12 11:53] LABS: BASOPHILS # (AUTO) 0.1 10^3/uL (0.0-0.1); BASOPHILS % (AUTO) 1 % (0-10); EOSINOPHILS # (AUTO) 0.4 10^3/uL (0.0-0.3); EOSINOPHILS % (AUTO) 3 % (0-10); HEMATOCRIT 44 % (40-54); HEMOGLOBIN 14.7 g/dL (13.3-17.7); LYMPHOCYTES % (AUTO) 26 % (12-44); MEAN CORPUSCULAR HEMOGLOBIN 29 pg (25-34); MEAN CORPUSCULAR HGB CONC 33 g/dL (32-36); MEAN CORPUSCULAR VOLUME 87 fL (80-99); MEAN PLATELET VOLUME 9.7 fL (9.0-12.2); MONOCYTES # (AUTO) 0.6 10^3/uL (0.0-1.0); MONOCYTES % (AUTO) 5 % (0-12); NEUTROPHILS # (AUTO) 7.4 10^3/uL (1.8-7.8); NEUTROPHILS % (AUTO) 65 % (42-75); PLATELET COUNT 330 10^3/uL (130-400); WHITE BLOOD COUNT 11.4 10^3/uL (4.3-11.0)
[2022-12-12 12:17] LABS: ALANINE AMINOTRANSFERASE 106 U/L (0-55); ALBUMIN 4.7 GM/DL (3.2-4.5); ALKALINE PHOSPHATASE 76 U/L (40-136); BILIRUBIN,TOTAL 0.4 MG/DL (0.1-1.0); BUN/CREATININE RATIO 15; CARBON DIOXIDE 25 MMOL/L (21-32); CHLORIDE 103 MMOL/L (98-107); CREATININE SERUM 0.73 MG/DL (0.60-1.30); GFR ESTIMATED 130; GLUCOSE 87 MG/DL (70-105); POTASSIUM 3.9 MMOL/L (3.6-5.0); SODIUM 141 MMOL/L (135-145); TOTAL PROTEIN 7.7 GM/DL (6.4-8.2)
== END 2022-12-22 | disposition home or self-care (01) ==
LOC: ONC 11:42
PROVIDERS: ATTEND Internal Medicine Hematology & Oncology
DX: C92.40 Acute promyelocytic leukemia, not having achieved remission (principal)
CPT/HCPCS: 36415; 80053; 81315; 82728; 83540; 83550; 85025

== ENCOUNTER 2022-12-26 10:59 | Outpatient (RCR) | payer MEDICARE, MEDICAID ==
[2023-01-09] MEDS ORDERED: RT-ALBUINH INH (14:49)
[2023-01-09] MEDS ORDERED: BUDE10.2 IH (14:49)
[2023-01-09] MEDS ORDERED: MONT-40 PO (14:49)
== END 2023-01-21 ==
LOC: ONC 10:59
PROVIDERS: ATTEND Internal Medicine Hematology & Oncology
DX: Z51.11 Encounter for antineoplastic chemotherapy (principal); C92.40 Acute promyelocytic leukemia, not having achieved remission; E55.9 Vitamin D deficiency, unspecified

== ENCOUNTER 2023-01-09 05:53 | Outpatient (CLI) | payer MEDICARE, MEDICAID ==
[~2023-01-09] VITALS: Ht 185.4 cm; Wt 122.0 kg
[2023-01-09] MEDS ORDERED: RT-ALBUINH INH (14:49)
[2023-01-09] MEDS ORDERED: BUDE10.2 IH (14:49)
[2023-01-09] MEDS ORDERED: MONT-40 PO (14:49)
== END 2023-01-09 14:51 | disposition home or self-care (01) ==
LOC: PREOP 05:53
PROVIDERS: ATTEND Surgery
DX: Z01.818 Encounter for other preprocedural examination (principal)

== ENCOUNTER 2023-01-11 06:59 | Day surgery (SDC) | payer MEDICARE, MEDICAID ==
[~2023-01-11] VITALS: Ht 185 cm; Wt 122.0 kg
[2023-01-11] VITALS (7 sets, daily range): BP systolic 99–139; BP diastolic 53–93
[~2023-01-11 06:59] MED LIST changes: +BUDE10.2 IH; +MONT-40 PO; +RT-ALBUINH INH
[2023-01-11] MEDS ORDERED: LACTATED RINGERS 1,000 ML IV PRN (07:15)
[2023-01-11] MEDS ORDERED: ceFAZolin INJECTION 2,000 MG in NS (IVPB) 50 ML IV ONE (07:15)
[2023-01-11] MEDS ORDERED: fentaNYL INJ 100 MCG/2 ML AMP ONE (07:21)
[2023-01-11] MEDS ORDERED: PROPOFOL INJECTION 50 ML IV ONE ×2 (07:21→08:22)
[2023-01-11] MEDS ORDERED: MIDAZOLAM 2 MG/2 ML (VERSED) VIAL ONE (07:21)
[2023-01-11] MEDS ORDERED: CATHETER FLUSH 10 ML SYR IVP PRN (07:30)
[2023-01-11] MEDS ORDERED: LIDOCAINE/EPI 1%-1:100,000 (XYLOCAINE) 20ML ONE (07:32)
--- NOTE | 2023-01-11 08:03 | Progress Note-Pre Operative ---
Pre-Operative Progress Note Date H&P Reviewed: Jan 11, 2023 Time H&P Reviewed: 07:57 History & Physical: H&P Reviewed, Patient Examed, No changes noted Pre-Operative Diagnosis: malfunction port RAYMOND LIMA DO Jan 11, 2023 08:03
--- NOTE | 2023-01-11 08:34 | Progress Note-Post Operative ---
Post-Operative Progess Note Surgeon (s)/Appeals Reviewer Veteran (s) Surgeon RAYMOND LIMA DO Appeals Reviewer Veteran: na Pre-Operative Diagnosis malfunction port Post-Operative Diagnosis same Procedure & Operative Findings Date of Procedure 01/11/23 Procedure Performed/Findings PROCEDURE: Removal of port, COMPLICATIONS: None. INDICATIONS: The patient is a 22 year-old male who had a port previously placed. Patient is ok to have port removed since malfunctioning. The patient was explained risk and benefits of the procedure and wished to proceed with procedure. Consent was signed on the chart. PROCEDURE: The patient was taken to the operating suite and was prepped and draped in sterile fashion. A surgical pause was performed. Local anesthetic was infiltrated to the area around the port. A number 15 blade scalpel was used to make an incision. Cautery was used to dissect down to the port which was then grasped and then dissected around. The catheter was removed in its entirety. The port was then able to be dissected out of the pocket and elevated. The wound was then irrigated with copious amounts of irrigation. Hemostasis had been achieved. The subcutaneous tissues were then reapproximated using 3-0 Vicryl. Skin was then closed using Skin Affix placed over the incision. The patient tolerated the procedure well without complication and was taken to recovery room in stable condition. Anesthesia Type mac c local Estimated Blood Loss Estimated blood loss (mL): minimal Specimens/Packing Specimens Removed RAYMOND El DO Jan 11, 2023 08:34
--- NOTE | 2023-01-11 08:36 | Discharge Inst-Simple/Standard ---
Discharge Inst-Standard Patient Instructions/Follow Up Plan of Care/Instructions/FU: 2 weeks Marvin Activity as Tolerated: Yes (No strenuous activity. ) Discharge Diet: Regular Diet Other Inst to Patient Follow up Appt: Make appointment for 2 week. Instructions: No strenuous activity. May shower in 24 hours, no tub bath or soaking. Use incentive spirometer at home as directed. No Smoking Skin/Wound Care: You have special glue over your incision that will fall off on it's own. Symptoms to Report: Appetite Changes, Extremity Discoloration, Numbness/Tingling, Swelling In creased, Bleeding Excessive, Eyesight Changes, Pain Increased, Urine Color Change, Constipation(Persistent), Fever over 101 degree F, Pain/Pressure in chest, Urinating Difficulty, Cough Up/Vomit Blood, Heart Beat Irreg/Pounding, Pain/Pressure in jaw, Vaginal Bleeding Increase, Cramps in feet or legs, Lightheadedness, Pain/Pressure in shoulder, Diarrhea(Persistent), Memory Changes Suddenly, Questions/Concerns, Weight gain consecutive days, Dizziness/Fainting, Nausea/Vomiting, Shortness of Breath, Weight gain over 2 pounds If questions or concerns contact your physician Or seek help at emergency department. RAYMOND LIMA DO Jan 11, 2023 08:36
[2023-01-11] MEDS ORDERED: HYDROmorphone 2 MG/ML VIAL (DILAUDID) IV ONE (08:45)
[2023-01-11] MEDS ORDERED: ONDANSETRON 4 MG/2 ML (SDV) Z0FRAN IVP PRN (08:45)
--- NOTE | 2023-01-11 08:46 | Anesthesia-General Post-Op ---
MAC Patient Condition Mental Status/LOC: Same as Preop Cardiovascular: Satisfactory Nausea/Vomiting: Absent Respiratory: Satisfactory Pain: Controlled Complications: Absent Post Op Complications Complications None Follow Up Care/Instructions Patient Instructions None needed. Anesthesiology Discharge Order Discharge Order Patient is doing well, no complaints, stable vital signs, no apparent adverse anesthesia problems. No complications reported per nursing. RC TUBBS CRNA Jan 11, 2023 08:46
[2023-01-11] MEDS ORDERED: LIDOCAINE/EPI 1%-1:100,000 (XYLOCAINE) 20ML INJ ONE (09:00)
== END 2023-01-11 09:50 | disposition home or self-care (01) ==
LOC: SDC 06:59
PROVIDERS: ATTEND Surgery
DX: T82.594A Other mechanical complication of infusion catheter, initial encounter (principal); Z87.891 Personal history of nicotine dependence; C92.41 Acute promyelocytic leukemia, in remission
CPT/HCPCS: 87081

== ENCOUNTER 2023-03-16 12:51 | Outpatient (RCR) | payer MEDICARE, MEDICAID ==
[2023-03-16 13:04] LABS: BASOPHILS # (AUTO) 0.1 10^3/uL (0.0-0.1); BASOPHILS % (AUTO) 1 % (0-10); EOSINOPHILS # (AUTO) 0.3 10^3/uL (0.0-0.3); EOSINOPHILS % (AUTO) 3 % (0-10); HEMATOCRIT 44 % (40-54); LYMPHOCYTES # (AUTO) 2.5 10^3/uL (1.0-4.0); LYMPHOCYTES % (AUTO) 29 % (12-44); MEAN CORPUSCULAR HEMOGLOBIN 29 pg (25-34); MEAN CORPUSCULAR HGB CONC 34 g/dL (32-36); MEAN CORPUSCULAR VOLUME 87 fL (80-99); MEAN PLATELET VOLUME 9.9 fL (9.0-12.2); MONOCYTES # (AUTO) 0.5 10^3/uL (0.0-1.0); MONOCYTES % (AUTO) 5 % (0-12); NEUTROPHILS # (AUTO) 5.3 10^3/uL (1.8-7.8); NEUTROPHILS % (AUTO) 61 % (42-75); PLATELET COUNT 306 10^3/uL (130-400); WHITE BLOOD COUNT 8.7 10^3/uL (4.3-11.0)
[2023-03-16 13:27] LABS: ALBUMIN 4.5 GM/DL (3.2-4.5); BILIRUBIN,TOTAL 0.6 MG/DL (0.1-1.0); CALCIUM 9.5 MG/DL (8.5-10.1); CREATININE SERUM 0.83 MG/DL (0.60-1.30); POTASSIUM 3.8 MMOL/L (3.6-5.0); TOTAL PROTEIN 7.2 GM/DL (6.4-8.2)
== END 2023-03-23 | disposition home or self-care (01) ==
LOC: ONC 12:51
PROVIDERS: ATTEND Internal Medicine Hematology & Oncology
DX: C92.40 Acute promyelocytic leukemia, not having achieved remission (principal); Z92.21 Personal history of antineoplastic chemotherapy
CPT/HCPCS: 36415; 80053; 81315; 82728; 83540; 83550; 85025

== ENCOUNTER 2023-03-28 08:53 | Outpatient (RCR) | payer MEDICARE, MEDICAID | END 2023-04-23 | disposition home or self-care (01) | LOC: ONC 08:53 | PROVIDERS: ATTEND Internal Medicine Hematology & Oncology | DX: C92.40 Acute promyelocytic leukemia, not having achieved remission (principal); Z92.21 Personal history of antineoplastic chemotherapy ==

== ENCOUNTER 2023-06-25 12:06 | Outpatient (RCR) | payer MEDICARE, MEDICAID ==
[2023-06-25 12:28] LABS: BASOPHILS % (AUTO) 0 % (0-10); EOSINOPHILS # (AUTO) 0.1 10^3/uL (0.0-0.3); EOSINOPHILS % (AUTO) 1 % (0-10); HEMATOCRIT 42 % (40-54); HEMOGLOBIN 14.3 g/dL (13.3-17.7); LYMPHOCYTES # (AUTO) 2.9 10^3/uL (1.0-4.0); LYMPHOCYTES % (AUTO) 28 % (12-44); MEAN CORPUSCULAR HEMOGLOBIN 30 pg (25-34); MEAN CORPUSCULAR HGB CONC 34 g/dL (32-36); MEAN CORPUSCULAR VOLUME 86 fL (80-99); MEAN PLATELET VOLUME 9.9 fL (9.0-12.2); MONOCYTES # (AUTO) 0.5 10^3/uL (0.0-1.0); MONOCYTES % (AUTO) 5 % (0-12); NEUTROPHILS # (AUTO) 6.6 10^3/uL (1.8-7.8); NEUTROPHILS % (AUTO) 65 % (42-75); PLATELET COUNT 325 10^3/uL (130-400); WHITE BLOOD COUNT 10.2 10^3/uL (4.3-11.0)
[2023-06-25 12:49] LABS: ALANINE AMINOTRANSFERASE 90 U/L (0-55); ALBUMIN 4.6 GM/DL (3.2-4.5); ALKALINE PHOSPHATASE 76 U/L (40-136); BILIRUBIN,TOTAL 0.4 MG/DL (0.1-1.0); BUN/CREATININE RATIO 11; CALCIUM 9.5 MG/DL (8.5-10.1); CARBON DIOXIDE 23 MMOL/L (21-32); CHLORIDE 105 MMOL/L (98-107); GFR ESTIMATED 127; GLUCOSE 85 MG/DL (70-105); POTASSIUM 3.8 MMOL/L (3.6-5.0); SODIUM 140 MMOL/L (135-145); TOTAL PROTEIN 7.6 GM/DL (6.4-8.2)
== END 2023-07-24 | disposition home or self-care (01) ==
LOC: ONC 12:06
PROVIDERS: ATTEND Internal Medicine Hematology & Oncology
DX: C92.40 Acute promyelocytic leukemia, not having achieved remission (principal)
CPT/HCPCS: 36415; 80053; 81315; 85025